=== PATIENT | female | born 1935 | race Caucasian/White ===

== ENCOUNTER 2016-09-20 15:30 | Inpatient (IN) | payer OTHER, MEDICARE ==
[~2016-09-20] VITALS: Ht 160 cm; Wt 69.9 kg
[~2016-09-20 15:30] MED LIST: ACET-1138 PO; ALBU1AER9 INH; AMLO-114 PO; ATEN-175 PO; CHOL100010 PO; CLON1TAB3 PO; CLOTCRE33 TOP; DOCU100T7 PO; DVNC160 PO; FURO-85 PO; GABA-112 PO; LVQ750 PO; PARO1TAB27 PO; PRAV40TA PO; SYMIN160 INH
[2016-09-20] MEDS ORDERED: HYDROmorphone INJ 0.5 MG/0.5 ML SYR IV STA (15:52)
--- NOTE | 2016-09-20 15:55 | EMERGENCY ROOM VISIT NOTE ---
History First contact with patient: 15:36 Chief Complaint: HIP PAIN Stated Complaint: SEVERE LEFT HIP PAIN History of Present Illness The patient is a 81 year old female who presents to the Emergency Room via private vehicle with complaints of "severe left hip pain". The patient presents to us today with hip pain that developed on Saturday. This is exclusively on the left side. There has been no known injury or trauma to the area. Patient states she has a history of fracture in the past of the right hip and this feels identical. She also has a recently diagnosed right tibial fracture. There is concern that the patient is compensating secondary to pain in the right leg by bearing more weight on the left hip region. The patient notes extreme pain with axial load, and rates her pain as a 9/10. Review of Systems A complete 10-point Review of Systems was discussed with the patient, with pertinent positives and negatives listed in the History of Present Illness. All remaining Review of Systems questions can be considered negative unless otherwise specified. Past Medical/Surgical History Medical Problems: (1) Arthritis (2) Compression fracture of vertebra (3) Hip fracture (4) Hypertension (5) Left hip pain (6) UTI (urinary tract infection) (7) Weakness Surgical Problems: (1) Post-operative state Family History Gallbladder disease Hypertension Kidney disease Kidney stones Social History Smoking Status: Current Every Day Smoker Alcohol Use: none Drug Use: none Marital Status: Occupation Status: retired Current/Historical Medications Scheduled Amlodipine (Norvasc), 5 MG PO DAILY Atenolol (Tenormin), 100 MG PO DAILY Budesonide/Formoterol Fumarate (Symbicort 160/4.5 Inhaler ), 2 PUFFS INH BID Cholecalciferol (Vitamin D 1000 Unit), 1,000 INTER.UNIT PO DAILY Clotrimazole W/ Betamethasone (Lotrisone), 1 APPLN TOP BID Fluticasone Propionate (Nasal) (Flonase Allergy Relief), 2 SPRAYS LIO DAILY Furosemide (Lasix), 20 MG PO DAILY Gabapentin (Neurontin), 100 MG PO BID Oxybutynin Chloride (Oxybutynin Chloride Er), 5 MG PO DAILY Paroxetine (Paxil), 20 MG PO HS Pravastatin Sodium (Pravachol), 40 MG PO DAILY Valsartan (Diovan), 160 MG PO DAILY Scheduled PRN Albuterol (Ventolin Hfa), 2 PUFFS INH Q4H PRN for Shortness of Breath Clonazepam (Klonopin), 0.5 MG PO BID PRN for Anxiety Allergies Coded Allergies: Cantaloupe (Verified Allergy, Mild, 09/29/15) [place] (Verified Allergy, Mild, 09/29/15) [place] (Verified Allergy, Mild, 09/29/15) NSAIDs (Verified Allergy, Unknown, unk, 09/29/15) Penicillins (Verified Allergy, Unknown, 09/29/15) Pseudoephedrine (Verified Adverse Reaction, Unknown, epistaxis, 09/29/15) (from nasal spray) Physical Exam Vital Signs Date Time Temp Pulse Resp B/P (MAP) Pulse Ox O2 Delivery O2 Flow Rate FiO2 09/20/16 20:10 59 18 160/79 90 Room Air 09/20/16 17:48 61 18 192/71 91 Room Air 09/20/16 15:34 36.5 59 18 184/76 95 Room Air Physical Exam VITAL SIGNS - Vital signs and nursing notes were reviewed. Patient is afebrile , hypertensive 184/76, non-tachycardic and saturating well on room air 95%. GENERAL -81-year-old female appearing her stated age who is in no acute distress. Communicates well with provider and answers questions appropriately. SKIN - Without rashes. No breaks in the integument. HEAD - NC/AT. LUNGS - Chest wall symmetric without accessory muscle use, intercostals retractions, or central cyanosis. Normal vesicular breath sounds CTA B/L. No wheezes, rales, or rhonchi appreciated. CARDIAC - RRR with S1/S2. No murmur, rubs, or gallops appreciated. EXTREMITIES - No clubbing or peripheral cyanosis. No pretibial edema present. There is tenderness to palpation overlying the left lateral hip. Exquisite tenderness referred to the left hip with axial load. She is neurovascularly intact in this region. No lumbar spinous processes tenderness. +5/5 strength noted in UE/LE bilaterally. Medical Decision & Procedures ER Provider Diagnostic Interpretation: RIGHT TIBIA/FIBULA 2 VIEWS ROUTINE CLINICAL HISTORY: Lower leg pain COMPARISON: MRI study dated 09/20/2016 DISCUSSION: There is subtle sclerosis involving the medial tibial plateau. This likely indicates an age-indeterminate impaction fracture. There is no dislocation. There are vascular calcifications present. IMPRESSION: Subtle area of linear sclerosis involving the medial tibial plateau. This likely indicates an age-indeterminate impaction fracture Electronically signed by: Tyrone Alonzo M.D. 09/20/2016 9:11 PM Dictated Date/Time: 09/20/2016 9:09 PM CHEST ONE VIEW PORTABLE CLINICAL HISTORY: Hip fracture COMPARISON STUDY: 09/29/2015 FINDINGS: The heart is the upper limits of normal in size. There is mild central vascular prominence without evidence of overt failure. There is no lobar consolidation. No pleural effusions are visualized. There is evidence for prior vertebroplasties.[ There is an area of scarring within the left mid to lower lung zone. IMPRESSION: Portable supine study. No acute findings. Electronically signed by: Tyrone Alonzo M.D. 09/20/2016 9:09 PM Dictated Date/Time: 09/20/2016 9:08 PM MRI THE LEFT HIP NO CONTRAST CLINICAL HISTORY: Severe left hip pain. No fracture visualized on CT scanning or conventional radiographic imaging COMPARISON STUDY: CT scan dated 09/20/2016, conventional x-ray dated 09/20/2016 FINDINGS: Imaging was performed in the axial, sagittal, and coronal planes. There is artifact secondary to a total right hip arthroplasty. There is a focal area of edema involving the medial aspect of the left femoral head neck junction. This demonstrates a linear focus of decreased T1 signal. The findings are consistent with a stress fracture. No corresponding fracture was visualized on the recent imaging of the left hip. There is a small left hip joint effusion. There is heterogeneous marrow signal within the left proximal femur. There is a 35 mm circumscribed lesion within the subtrochanteric left femur. There is no associated soft tissue mass. There is no cortical disruption. The lesion appears to contain fatty elements. While nonspecific this may represent an intraosseous lipoma. IMPRESSION: 1. Focal edema involving the medial femoral head neck junction, likely representing a stress fracture. 2. Small joint effusion 3. 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 Electronically signed by: Tyrone Alonzo M.D. 09/20/2016 8:05 PM Dictated Date/Time: 09/20/2016 7:[address] LEFT HIP-LOWER EXTREMITY WITHOUT CT DOSE: 475.93 mGy.cm CLINICAL HISTORY: Left hip pain negative conventional radiographic study TECHNIQUE: Helical images were acquired in the transverse plane. Coronal and sagittal reformatted images were reviewed COMPARISON STUDY: Conventional radiographic study dated 09/20/2016 FINDINGS: The bones are osteopenic. No fractures are visualized. No destructive lesions are visualized. There is a very small joint effusion. There are minimal degenerative changes. There is colonic diverticulosis. IMPRESSION: 1. No acute fractures 2. No destructive lesions identified 3. Minimal degenerative changes 4. Very small joint effusion Electronically signed by: Tyrone Alonzo M.D. 09/20/2016 5:31 PM Dictated Date/Time: 09/20/2016 5:28 PM AP PELVIS AND LEFT HIP 3 VIEWS CLINICAL HISTORY: Left hip pain. COMPARISON STUDY: August 2015 FINDINGS: There are postsurgical changes of a total right hip arthroplasty. There are postsurgical changes of a lower lumbar vertebral plasty. There are vascular calcifications present. No fractures of the left hip are visualized. There are no subluxations. There are no destructive lesions. The joint space of the left hip appears well-preserved for age. IMPRESSION: No acute fractures identified. No evidence of significant left hip joint space narrowing. Electronically signed by: Tyrone Alonzo M.D. 09/20/2016 4:35 PM Dictated Date/Time: 09/20/2016 4:33 PM Laboratory Results 09/20/16 16:00 Red Blood Count 4.53, Mean Corpuscular Volume 78.8, Mean Corpuscular Hemoglobin 24.3, Mean Corpuscular Hemoglobin Concent 30.8, Mean Platelet Volume 8.6, Neutrophils (%) (Auto) 73.0, Lymphocytes (%) (Auto) 15.7, Monocytes (%) (Auto) 9.2, Eosinophils (%) (Auto) 1.0, Basophils (%) (Auto) 0.3, Neutrophils # (Auto) 4.42, Lymphocytes # (Auto) 0.95, Monocytes # (Auto) 0.56, Eosinophils # (Auto) 0.06, Basophils # (Auto) 0.02 09/20/16 21:19 Test 09/20/16 16:00 09/20/16 21:19 09/20/16 22:07 White Blood Count 6.06 K/uL (4.8-10.8) Red Blood Count 4.53 M/uL (4.2-5.4) Hemoglobin 11.0 g/dL (12.0-16.0) Hematocrit 35.7 % (37-47) Mean Corpuscular Volume 78.8 fL (80-100) Mean Corpuscular Hemoglobin 24.3 pg (25-34) Mean Corpuscular Hemoglobin Concent 30.8 g/dl (32-36) Platelet Count 237 K/uL (130-400) Mean Platelet Volume 8.6 fL (7.4-10.4) Neutrophils (%) (Auto) 73.0 % Lymphocytes (%) (Auto) 15.7 % Monocytes (%) (Auto) 9.2 % Eosinophils (%) (Auto) 1.0 % Basophils (%) (Auto) 0.3 % Neutrophils # (Auto) 4.42 K/uL (1.4-6.5) Lymphocytes # (Auto) 0.95 K/uL (1.2-3.4) Monocytes # (Auto) 0.56 K/uL (0.11-0.59) Eosinophils # (Auto) 0.06 K/uL (0-0.5) Basophils # (Auto) 0.02 K/uL (0-0.2) RDW Standard Deviation 53.2 fL (36.4-46.3) RDW Coefficient of Variation 18.6 % (11.5-14.5) Immature Granulocyte % (Auto) 0.8 % Immature Granulocyte # (Auto) 0.05 K/uL (0.00-0.02) Total Bilirubin 0.4 mg/dl (0.2-1) Aspartate Amino Transf (AST/SGOT) 25 U/L (15-37) Alanine Aminotransferase (ALT/SGPT) 25 U/L (12-78) Alkaline Phosphatase 74 U/L (45-117) Total Protein 7.1 gm/dl (6.4-8.2) Albumin 3.7 gm/dl (3.4-5.0) Globulin 3.4 gm/dl (2.5-4.0) Albumin/Globulin Ratio 1.1 (0.9-2) Prothrombin Time 10.7 SECONDS (9.0-12.0) Prothromb Time International Ratio 1.0 (0.9-1.1) Activated Partial Thromboplast Time 25.6 SECONDS (21.0-31.0) Partial Thromboplastin Ratio 1.0 Anion Gap 4.0 mmol/L (3-11) Est Creatinine Clear Calc Drug Dose 27.7 ml/min Estimated GFR () 37.7 Estimated GFR (Non- 32.6 BUN/Creatinine Ratio 14.1 (10-20) Calcium Level 9.3 mg/dl (8.5-10.1) Urine Color YELLOW Urine Appearance CLEAR (CLEAR) Urine pH 8.0 (4.5-7.5) Urine Specific [place] 1.013 (1.000-1.030) Urine Protein NEG (NEG) Urine Glucose (UA) NEG (NEG) Urine Ketones NEG (NEG) Urine Occult Blood NEG (NEG) Urine Nitrite NEG (NEG) Urine Bilirubin NEG (NEG) Urine Urobilinogen NEG (NEG) Urine Leukocyte Esterase NEG (NEG) Medications Administered Medications (Trade) Dose Ordered Sig/Rashi Route Start Time Stop Time Status Last Admin Dose Admin Hydromorphone HCl (Dilaudid Inj) 0.5 mg NOW STAT IV 09/20/16 15:52 09/20/16 15:53 DC 09/20/16 16:14 0.5 MG Medical Decision Patient was seen and evaluated as above. After obtaining a thorough history and physical examination IV access was initiated, and the above workup was performed. Patient presents to us today with severe left hip pain, no trauma. She states the pain feels identical to pain she has experienced in the past when she had fractured the right hip. Radiographs did not reveal any fracture, and CBC reveals anemia, but no leukocytosis. She was given Dilaudid for pain. She is reevaluated and was feeling much better. Coag studies unremarkable. CMP reveals carbon dioxide high at 33, BUN high 24, creatinine high at 1.6. Urine reveals high pH. CT scan was obtained of the hip and negative for acute process. I did discuss the case with Dr. Fierro, of [facility], who recommended pursuing an MRI of the hip. Results as above. Stress fracture is noted. I did call him back regarding the findings, and the decision was made to have the patient admitted, and then orthopedics consult tomorrow to decide if the patient would require surgery or conservative management. I do believe this is reasonable, and the patient will be admitted for further evaluation and management. A diet was ordered for the patient, as it was requested that she become nothing by mouth after midnight and there are still some time for her to eat food. The patient seems comfortable. Please refer to further documentation regarding her stay, as the patient's case was discussed with the hospitalist. In the evaluation and treatment of this patient, the following differential diagnoses were considered: Hip Fracture, Hip Dislocation, Greater Trochanteric Bursitis, Musculoskeletal Pain, Lumbar Radiculopathy. Patient's blood pressure was found to be elevated which I believe is secondary to pain. I personally reviewed the patient's medication list. Impression Primary Impression: Hip fracture Additional Impression: Anemia Departure Information Referrals Mani Jimenez D.O. (PCP) Patient Instructions [facility] Problem Qualifiers
[2016-09-20 16:16] LABS: BASO % 0.3 %; BASO ABS # 0.02 K/uL (0-0.2); COMPLETE YES; HEMATOCRIT 35.7 % (37-47); IG% 0.8 %; LYMPH % 15.7 %; LYMPH ABS # 0.95 K/uL (1.2-3.4); MEAN CELL VOLUME 78.8 fL (80-100); MEAN CORPUSCULAR HEMOGLOBIN 24.3 pg (25-34); MEAN CORPUSCULAR HGB CONC 30.8 g/dl (32-36); MEAN PLATELET VOLUME 8.6 fL (7.4-10.4); MONO % 9.2 %; PLATELET COUNT 237 K/uL (130-400); RED BLOOD COUNT 4.53 M/uL (4.2-5.4); WHITE BLOOD COUNT 6.06 K/uL (4.8-10.8)
[2016-09-20] MEDS ORDERED: FLUT0.15 NAE (16:25)
[2016-09-20] MEDS ORDERED: PRVHFAIN INH (16:25)
[2016-09-20] MEDS ORDERED: CHOL100027 PO (16:25)
[2016-09-20] MEDS ORDERED: DVN/160 PO (16:25)
[2016-09-20] MEDS ORDERED: CLON0.5T3 PO (16:25)
[2016-09-20] MEDS ORDERED: OXYB5TAB PO (16:25)
[2016-09-20] MEDS ORDERED: AMLO-110 PO (16:25)
[2016-09-20 16:34] LABS: BUN/CREATININE RATIO 14.8 (10-20); CALCIUM 9.2 mg/dl (8.5-10.1); CREATININE 1.6 mg/dl (0.60-1.20); POTASSIUM 3.9 mmol/L (3.5-5.1)
[2016-09-20 16:36] LABS: ALB/GLOB RATIO 1.1 (0.9-2)
--- NOTE | 2016-09-20 16:36 | DIAGNOSTIC IMAGING REPORT ---
AP PELVIS AND LEFT HIP 3 VIEWS CLINICAL HISTORY: Left hip pain. COMPARISON STUDY: August 2015 FINDINGS: There are postsurgical changes of a total right hip arthroplasty. There are postsurgical changes of a lower lumbar vertebral plasty. There are vascular calcifications present. No fractures of the left hip are visualized. There are no subluxations. There are no destructive lesions. The joint space of the left hip appears well-preserved for age. IMPRESSION: No acute fractures identified. No evidence of significant left hip joint space narrowing. Electronically signed by: Tyrone Alonzo M.D. 09/20/2016 4:35 PM Dictated Date/Time: 09/20/2016 4:33 PM
--- NOTE | 2016-09-20 17:30 | EMERGENCY ROOM VISIT NOTE ---
ED Visit Note First contact with patient: 15:36 Patient was seen by our PA/DIRECTOR GIFT. I was involved in the patient's care and did evaluate the patient myself. I was involved in the care throughout the ER stay. The patient presents with hip pain. Initial plain films do not show fracture, a CT has been ordered for a better look at the bones for the possibility of a subtle fracture. This result is pending.
--- NOTE | 2016-09-20 17:32 | DIAGNOSTIC IMAGING REPORT ---
CT LEFT HIP-LOWER EXTREMITY WITHOUT CT DOSE: 475.93 mGy.cm CLINICAL HISTORY: Left hip pain negative conventional radiographic study TECHNIQUE: Helical images were acquired in the transverse plane. Coronal and sagittal reformatted images were reviewed COMPARISON STUDY: Conventional radiographic study dated 09/20/2016 FINDINGS: The bones are osteopenic. No fractures are visualized. No destructive lesions are visualized. There is a very small joint effusion. There are minimal degenerative changes. There is colonic diverticulosis. IMPRESSION: 1. No acute fractures 2. No destructive lesions identified 3. Minimal degenerative changes 4. Very small joint effusion Electronically signed by: Tyrone Alonzo M.D. 09/20/2016 5:31 PM Dictated Date/Time: 09/20/2016 5:28 PM
--- NOTE | 2016-09-20 20:07 | DIAGNOSTIC IMAGING REPORT ---
MRI THE LEFT HIP NO CONTRAST CLINICAL HISTORY: Severe left hip pain. No fracture visualized on CT scanning or conventional radiographic imaging COMPARISON STUDY: CT scan dated 09/20/2016, conventional x-ray dated 09/20/2016 FINDINGS: Imaging was performed in the axial, sagittal, and coronal planes. There is artifact secondary to a total right hip arthroplasty. There is a focal area of edema involving the medial aspect of the left femoral head neck junction. This demonstrates a linear focus of decreased T1 signal. The findings are consistent with a stress fracture. No corresponding fracture was visualized on the recent imaging of the left hip. There is a small left hip joint effusion. There is heterogeneous marrow signal within the left proximal femur. There is a 35 mm circumscribed lesion within the subtrochanteric left femur. There is no associated soft tissue mass. There is no cortical disruption. The lesion appears to contain fatty elements. While nonspecific this may represent an intraosseous lipoma. IMPRESSION: 1. Focal edema involving the medial femoral head neck junction, likely representing a stress fracture. 2. Small joint effusion 3. 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 Electronically signed by: Tyrone Alonzo M.D. 09/20/2016 8:05 PM Dictated Date/Time: 09/20/2016 7:56 PM
--- NOTE | 2016-09-20 21:10 | DIAGNOSTIC IMAGING REPORT ---
CHEST ONE VIEW PORTABLE CLINICAL HISTORY: Hip fracture COMPARISON STUDY: 09/29/2015 FINDINGS: The heart is the upper limits of normal in size. There is mild central vascular prominence without evidence of overt failure. There is no lobar consolidation. No pleural effusions are visualized. There is evidence for prior vertebroplasties.[ There is an area of scarring within the left mid to lower lung zone. IMPRESSION: Portable supine study. No acute findings. Electronically signed by: Tyrone Alonzo M.D. 09/20/2016 9:09 PM Dictated Date/Time: 09/20/2016 9:08 PM
--- NOTE | 2016-09-20 21:13 | DIAGNOSTIC IMAGING REPORT ---
RIGHT TIBIA/FIBULA 2 VIEWS ROUTINE CLINICAL HISTORY: Lower leg pain COMPARISON: MRI study dated 09/20/2016 DISCUSSION: There is subtle sclerosis involving the medial tibial plateau. This likely indicates an age-indeterminate impaction fracture. There is no dislocation. There are vascular calcifications present. IMPRESSION: Subtle area of linear sclerosis involving the medial tibial plateau. This likely indicates an age-indeterminate impaction fracture Electronically signed by: Tyrone Alonzo M.D. 09/20/2016 9:11 PM Dictated Date/Time: 09/20/2016 9:09 PM
[2016-09-20 22:08] LABS: PROTHROMBIN TIME (PATIENT) 10.7 SECONDS (9.0-12.0)
[2016-09-20 22:12] LABS: BUN/CREATININE RATIO 14.1 (10-20); CALCIUM 9.3 mg/dl (8.5-10.1); CREATININE 1.5 mg/dl (0.60-1.20); POTASSIUM 3.8 mmol/L (3.5-5.1)
[2016-09-20] MEDS ORDERED: MoRPHine SULFATE 4 MG/ML 1 ML CARP\\VIAL IV PRN (22:15)
[2016-09-20] MEDS ORDERED: MAGNESIUM HYDROXIDE SUSP 30 ML UDC PO PRN (22:15)
[2016-09-20] MEDS ORDERED: ALBUTEROL HFA 8 GM INHALER INH PRN (22:15)
[2016-09-20] MEDS ORDERED: ONDANSETRON INJ 2 MG/ML 2 ML VIAL IV PRN (22:15)
[2016-09-20] MEDS ORDERED: POLYETHYLENE (MIRALAX) 17 GM PACK PO PRN (22:15)
[2016-09-20 22:41] LABS: URINE APPEARANCE CLEAR (CLEAR); URINE BILIRUBIN NEG (NEG); URINE COLOR YELLOW; URINE NITRITE NEG (NEG); URINE SPECIFIC GRAVITY 1.013 (1.000-1.030); UROBILINOGEN NEG (NEG); ZZURINE CULT IF INDIC CATH NO
[2016-09-20 22:43] LABS: MANUAL MICROSCOPIC REQUIRED? NO; REVIEW REQ? NO
--- NOTE | 2016-09-20 23:09 | History and Physical ---
History & Physical Date & Time of Service: Sep 20, 2016 at 23:09 Chief Complaint: Severe Left Hip Pain Primary Care Physician: Mani Jimenez D.O. History of Present Illness Ms. Hughes is a 80 year old woman with an extensive orthopedic history including multiple spine surgeries and more recently a right hip replacement on 09/07/15 for a femur fracture after a fall,COPD, urinary incontinence. She presented to the ER with complaints of severe left hip pain which started a few days ago. She denies any history of trauma and thinks her pain is due to overuse/ by excessive weight bearing on the left side as she was recently diagnosed with a right tibial fracture . She states her pain is 9 on a scale of 10 with radiation to her buttock. Denies any fevers or chills, numbness or tingling, , chest pains, shortness of breathing, palpitations Past Medical/Surgical History Medical Problems: (1) Arthritis Status: Chronic (2) Compression fracture of vertebra Status: Chronic (3) Hypertension Status: Chronic Family History Gallbladder disease Hypertension Kidney disease Kidney stones Social History Smoking Status: Current Every Day Smoker Drug Use: none Marital Status: Occupational Status: retired Immunizations History of Influenza Vaccine: Yes Influenza Vaccine Date: Jan 13, 2007 History of Tetanus Vaccine?: YES- UNCERTAIN OF DATE History of Pneumococcal: No History of Hepatitis B Vaccine: No Multi-Drug Resistant Organisms History of MDRO: No Allergies Coded Allergies: Cantaloupe (Verified Allergy, Mild, 09/29/15) [place] (Verified Allergy, Mild, 09/29/15) [place] (Verified Allergy, Mild, 09/29/15) NSAIDs (Verified Allergy, Unknown, unk, 09/29/15) Penicillins (Verified Allergy, Unknown, 09/29/15) Pseudoephedrine (Verified Adverse Reaction, Unknown, epistaxis, 09/29/15) (from nasal spray) Home Medications Scheduled Amlodipine (Norvasc), 5 MG PO DAILY Atenolol (Tenormin), 100 MG PO DAILY Budesonide/Formoterol Fumarate (Symbicort 160/4.5 Inhaler ), 2 PUFFS INH BID Cholecalciferol (Vitamin D 1000 Unit), 1,000 INTER.UNIT PO DAILY Clotrimazole W/ Betamethasone (Lotrisone), 1 APPLN TOP BID Fluticasone Propionate (Nasal) (Flonase Allergy Relief), 2 SPRAYS LIO DAILY Furosemide (Lasix), 20 MG PO DAILY Gabapentin (Neurontin), 100 MG PO BID Oxybutynin Chloride (Oxybutynin Chloride Er), 5 MG PO DAILY Paroxetine (Paxil), 20 MG PO HS Pravastatin Sodium (Pravachol), 40 MG PO DAILY Valsartan (Diovan), 160 MG PO DAILY Scheduled PRN Albuterol (Ventolin Hfa), 2 PUFFS INH Q4H PRN for Shortness of Breath Clonazepam (Klonopin), 0.5 MG PO BID PRN for Anxiety Review of Systems Constitutional: No fever, No chills Eyes: No worsening of vision ENT: No hearing loss Respiratory: No cough, No sputum Cardiovascular: No chest pain Abdomen: No pain, No nausea, No vomiting Musculoskeletal: + joint pain (left hip pain) Genitourinary - Female: No dysuria, No urinary frequency, No urinary urgency Psychiatric: No depression symptoms Endocrine: No fatigue Hematologic / Lymphatic: No abnormal bleeding/bruising Physical Exam Vital Signs Date Time Temp Pulse Resp B/P (MAP) Pulse Ox O2 Delivery O2 Flow Rate FiO2 09/20/16 22:52 68 09/20/16 22:11 94 Nasal Cannula 2.0 09/20/16 22:10 66 18 175/74 88 Room Air 09/20/16 20:10 59 18 160/79 90 Room Air 09/20/16 17:48 61 18 192/71 91 Room Air 09/20/16 15:34 36.5 59 18 184/76 95 Room Air General Appearance: WD/WN, + mild distress Head: normocephalic, atraumatic Eyes: normal inspection ENT: normal ENT inspection Neck: supple Respiratory/Chest: no respiratory distress, no accessory muscle use, + wheezing (scattered) Cardiovascular: regular rate, rhythm Abdomen/GI: normal bowel sounds, non tender, soft Extremities/Musculoskelatal: + pedal edema (bilateral), + pertinent finding ( tenderness on palpation of left hip. No obvious swelling/bruising) Neurologic/Psych: alert, normal mood/affect, oriented x 3 Skin: normal color Diagnostics Laboratory Results Results Past 24 Hours Test 09/20/16 16:00 09/20/16 21:19 09/20/16 22:07 Range/Units White Blood Count 6.06 4.8-10.8 K/uL Red Blood Count 4.53 4.2-5.4 M/uL Hemoglobin 11.0 12.0-16.0 g/dL Hematocrit 35.7 37-47 % Mean Corpuscular Volume 78.8 80-100 fL Mean Corpuscular Hemoglobin 24.3 25-34 pg Mean Corpuscular Hemoglobin Concent 30.8 32-36 g/dl Platelet Count 237 130-400 K/uL Mean Platelet Volume 8.6 7.4-10.4 fL Neutrophils (%) (Auto) 73.0 % Lymphocytes (%) (Auto) 15.7 % Monocytes (%) (Auto) 9.2 % Eosinophils (%) (Auto) 1.0 % Basophils (%) (Auto) 0.3 % Neutrophils # (Auto) 4.42 1.4-6.5 K/uL Lymphocytes # (Auto) 0.95 1.2-3.4 K/uL Monocytes # (Auto) 0.56 0.11-0.59 K/uL Eosinophils # (Auto) 0.06 0-0.5 K/uL Basophils # (Auto) 0.02 0-0.2 K/uL RDW Standard Deviation 53.2 36.4-46.3 fL RDW Coefficient of Variation 18.6 11.5-14.5 % Immature Granulocyte % (Auto) 0.8 % Immature Granulocyte # (Auto) 0.05 0.00-0.02 K/uL Sodium Level 137 142 136-145 mmol/L Potassium Level 3.9 3.8 3.5-5.1 mmol/L Chloride Level 100 105 98-107 mmol/L Carbon Dioxide Level 33 33 21-32 mmol/L Anion Gap 4.0 4.0 3-11 mmol/L Blood Urea Nitrogen 24 21 7-18 mg/dl Creatinine 1.60 1.50 0.60-1.20 mg/dl Est Creatinine Clear Calc Drug Dose 26.0 27.7 ml/min Estimated GFR () 34.9 37.7 Estimated GFR (Non- 30.1 32.6 BUN/Creatinine Ratio 14.8 14.1 10-20 Random Glucose 88 87 70-99 mg/dl Calcium Level 9.2 9.3 8.5-10.1 mg/dl Total Bilirubin 0.4 0.2-1 mg/dl Aspartate Amino Transf (AST/SGOT) 25 15-37 U/L Alanine Aminotransferase (ALT/SGPT) 25 12-78 U/L Alkaline Phosphatase 74 45-117 U/L Total Protein 7.1 6.4-8.2 gm/dl Albumin 3.7 3.4-5.0 gm/dl Globulin 3.4 2.5-4.0 gm/dl Albumin/Globulin Ratio 1.1 0.9-2 Prothrombin Time 10.7 9.0-12.0 SECONDS Prothromb Time International Ratio 1.0 0.9-1.1 Activated Partial Thromboplast Time 25.6 21.0-31.0 SECONDS Partial Thromboplastin Ratio 1.0 Urine Color YELLOW Urine Appearance CLEAR CLEAR Urine pH 8.0 4.5-7.5 Urine Specific [place] 1.013 1.000-1.030 Urine Protein NEG NEG Urine Glucose (UA) NEG NEG Urine Ketones NEG NEG Urine Occult Blood NEG NEG Urine Nitrite NEG NEG Urine Bilirubin NEG NEG Urine Urobilinogen NEG NEG Urine Leukocyte Esterase NEG NEG Diagnostic Radiology AP PELVIS AND LEFT HIP 3 VIEWS CLINICAL HISTORY: Left hip pain. COMPARISON STUDY: August 2015 FINDINGS: There are postsurgical changes of a total right hip arthroplasty. There are postsurgical changes of a lower lumbar vertebral plasty. There are vascular calcifications present. No fractures of the left hip are visualized. There are no subluxations. There are no destructive lesions. The joint space of the left hip appears well-preserved for age. IMPRESSION: No acute fractures identified. No evidence of significant left hip joint space narrowing. [~ rep ct add3]] CT LEFT HIP-LOWER EXTREMITY WITHOUT CT DOSE: 475.93 mGy.cm CLINICAL HISTORY: Left hip pain negative conventional radiographic study TECHNIQUE: Helical images were acquired in the transverse plane. Coronal and sagittal reformatted images were reviewed COMPARISON STUDY: Conventional radiographic study dated 09/20/2016 FINDINGS: The bones are osteopenic. No fractures are visualized. No destructive lesions are visualized. There is a very small joint effusion. There are minimal degenerative changes. There is colonic diverticulosis. IMPRESSION: 1. No acute fractures 2. No destructive lesions identified 3. Minimal degenerative changes 4. Very small joint effusion Electronically signed by: Tyrone Alonzo M.D. 09/20/2016 5:31 PM Dictated Date/Time: 09/20/2016 5:28 PM MRI THE LEFT HIP NO CONTRAST CLINICAL HISTORY: Severe left hip pain. No fracture visualized on CT scanning or conventional radiographic imaging COMPARISON STUDY: CT scan dated 09/20/2016, conventional x-ray dated 09/20/2016 FINDINGS: Imaging was performed in the axial, sagittal, and coronal planes. There is artifact secondary to a total right hip arthroplasty. There is a focal area of edema involving the medial aspect of the left femoral head neck junction. This demonstrates a linear focus of decreased T1 signal. The findings are consistent with a stress fracture. No corresponding fracture was visualized on the recent imaging of the left hip. There is a small left hip joint effusion. There is heterogeneous marrow signal within the left proximal femur. There is a 35 mm circumscribed lesion within the subtrochanteric left femur. There is no associated soft tissue mass. There is no cortical disruption. The lesion appears to contain fatty elements. While nonspecific this may represent an intraosseous lipoma. IMPRESSION: 1. Focal edema involving the medial femoral head neck junction, likely representing a stress fracture. 2. Small joint effusion 3. 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 [~ rep ct add3]] RIGHT TIBIA/FIBULA 2 VIEWS ROUTINE CLINICAL HISTORY: Lower leg pain COMPARISON: MRI study dated 09/20/2016 DISCUSSION: There is subtle sclerosis involving the medial tibial plateau. This likely indicates an age-indeterminate impaction fracture. There is no dislocation. There are vascular calcifications present. IMPRESSION: Subtle area of linear sclerosis involving the medial tibial plateau. This likely indicates an age-indeterminate impaction fracture Electronically signed by: Tyrone Alonzo M.D. 09/20/2016 9:11 PM Dictated Date/Time: 09/20/2016 9:09 PM CHEST ONE VIEW PORTABLE CLINICAL HISTORY: Hip fracture COMPARISON STUDY: 09/29/2015 FINDINGS: The heart is the upper limits of normal in size. There is mild central vascular prominence without evidence of overt failure. There is no lobar consolidation. No pleural effusions are visualized. There is evidence for prior vertebroplasties.[ There is an area of scarring within the left mid to lower lung zone. IMPRESSION: Portable supine study. No acute findings. Electronically signed by: Tyrone Alonzo M.D. 09/20/2016 9:09 PM Dictated Date/Time: 09/20/2016 9:08 PM CXR normal Impression Assessment and Plan Ms. Hughes is a 80 year old woman with an extensive orthopedic history including multiple spine surgeries and more recently a right hip replacement on 09/07/15 for a femur fracture after a fall,COPD, urinary incontinence presented to the ER with complaints of left-sided hip pain. Chest x-ray unremarkable, EKG ordered. Considered to be average risk for anticipated surgical intervention Femoral neck stress fracture: -Likely secondary to overuse /excessive weightbearing due to recent right tibial fracture -MRI right hip : 1. Focal edema involving the medial femoral head neck junction , likely representing a stress fracture. 2. Small joint effusion 3. 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 -Chest x-ray unremarkable -Pain control with Dilaudid -Orthopedic consult -Nothing by mouth after midnight Acute kidney injury: - Creatinine at 1.6, baseline around 1.4 - Avoid nephrotoxins -Continue IV fluids and monitor BMP Hypertension: -Continue amlodipine, atenolol, valsartan COPD: - Continue Symbicort, Ventolin - Chest x-ray unremarkable Urinary incontinence: - Continue oxybutynin Depression: -Continue Paxil Addendum Pre-op risk: Would advise on correction of renal function prior to surgery as her baseline creat is 1.0 per previous labs RCRI is technically 0.4% as she does not have a significant cardiac history although her EKG is abnormal so that a history of CAD cannot be completely ruled out in terms of a previous silent infarct - would then place her risk at 0.9% which is still acceptable and based on her recent history would recommend proceeding to surgery without further workup although again we would recommend correction of her NOHEMY. DVT prophylaxis: SCDs DO NOT RESUSCITATE - will need reversal of code status if she is to proceed to surgery Disposition: Admitted to [facility] Resident Physician Supervision Note: I was present with Dr. Turcios during the history and exam. I discussed the case with the resident and agree with the findings and plan as documented in the note. Any exceptions or clarifications are listed here: 81 y/o F Hx COPD, CKD - osteoporosis w/multiple fractures. Presents following a fall - sustained a L hip and tibial Fx OE AAO x 3 S1, 2 R CTA - decreased air entry NT ND + B/L edema P: Pt will require surgical intervention We are pending an ortho eval Will be kept NPO and placed on incentive spirometry due to COPD history Would advise on correction of renal function prior to surgery as her baseline creat is 1.0 per previous labs RCRI is technically 0.4% as she does not have a significant cardiac history although her EKG is abnormal so that a history of CAD cannot be completely ruled out in terms of a previous silent infarct - would then place her risk at 0.9% which is still acceptable and based on her recent history would recommend proceeding to surgery without further workup although again we would recommend correction of her NOHEMY. Documented By: Ryan Larios Level of Care Med/Surg Resuscitation Status DO NOT RESUSCITATE VTE Prophylaxis VTE Risk Assessment Done? Y/N: Yes Risk Level: Moderate Given or contraindicated: SCD's Resident Tracking Resident Involvement: Resident Care Provided Care Provided: Adult Hospital Medicine
[2016-09-20 23:40] VITALS: BP 165/67; PULSE 70; TEMP 36.7; O2SAT 87; Ht 160 cm; Wt 69.9 kg
[2016-09-21] VITALS (9 sets, daily range): BP systolic 154–202; BP diastolic 62–79; PULSE 67–74; TEMP 36.4–36.7; O2SAT 92–97
[2016-09-21] MEDS: HYDROmorphone INJ 0.5 MG/0.5 ML SYR IV PRN ×3 (00:56→19:29)
[2016-09-21] MEDS: SODIUM CHLORIDE 0.9% 1000ML 1,000 ML IV SCH ×3 (03:06→22:46)
[2016-09-21] MEDS: AMLODIPINE BESYLATE 5 MG TAB PO SCH (08:40)
[2016-09-21] MEDS: BUDESONIDE/FORMOTEROL FUMARATE 160/4.5 60 PUFFS/INHALER INH SCH ×2 (08:41→20:49)
[2016-09-21] MEDS: VALSARTAN 80 MG TAB PO SCH (08:41)
[2016-09-21] MEDS: FLUTICASONE PROPIONATE NA SPR 16 GM BTL NAE SCH (08:41)
[2016-09-21] MEDS: CLOTRIMAZOLE/BETAMETHASONE CR 15 GM TUBE EXT SCH ×2 (08:41→20:49)
[2016-09-21] MEDS ORDERED: BUPIVACAINE 0.5 % 5 MG/1 ML PF 10ML VIAL ONE (11:29)
--- NOTE | 2016-09-21 11:49 | Orthopedic Consultation ---
Orthopedic Consultation Date of Consultation: Sep 21, 2016. Attending Physician: Ryan Larios M.D. Reason for Consultation: Left Hip Fracture History of Present Illness Patient is an 81-year-old white female known to our practice, who was admitted last night by medicine service for a left femoral neck fracture identified through MRI. Patient is accompanied by her daughter and state that the patient did not have any kind of mechanical fall. The patient states that her left hip began hurting her last Saturday. She has been limited weightbearing on her right knee due to having a small compression-type fracture of her right tibial plateau. She was seen in [place] by Dr. Ramirez who put her in a brace for her right knee and told her to "take it easy" on the knee. Prior to this, the patient states that she wasn't having much in the way of left hip pain. The daughter does state however that comparing it to her right hip which she had a total hip replacement, the left hip was bothering her somewhat but not to the point that she was complaining about it all the time. The pain in the left hip continued to worsen and the daughter brought her in to be seen in the emergency room. [facility]. In the emergency room, plain films were taken and showed no overt fracture. A CT scan was also performed and found no cortical lucencies or fractures. An MRI was then performed of the left hip and found focal edema involving the medial femoral head neck junction, likely being a stress type fracture. There was also noted a well-circumscribed 35mm cyst in the subtrochanteric region that could likely be lipomatous. We have been asked to see her for her current hip pain and likely fracture. Past Medical/Surgical History PMH - Arthritis, HTN, hx of Vertebral Compression Fractures PSH - R ANCELMO , Hysterectomy, Tonsilectomy, Multiple Lumbar Spine surgeries. Medical Problems: (1) Anemia Status: Acute (2) COPD exacerbation Status: Acute (3) Dehydration Status: Acute (4) Hip fracture, right Status: Acute (5) Pyelonephritis Status: Acute Family History Gallbladder disease Hypertension Kidney disease Kidney stones Social History Smoking Status: Current Every Day Smoker Drug Use: none Marital Status: Occupation Status: retired Allergies Coded Allergies: Cantaloupe (Verified Allergy, Mild, 09/29/15) [place] (Verified Allergy, Mild, 09/29/15) [place] (Verified Allergy, Mild, 09/29/15) NSAIDs (Verified Allergy, Unknown, unk, 09/29/15) Penicillins (Verified Allergy, Unknown, 09/29/15) Pseudoephedrine (Verified Adverse Reaction, Unknown, epistaxis, 09/29/15) (from nasal spray) Home Medications Scheduled Amlodipine (Norvasc), 5 MG PO DAILY Atenolol (Tenormin), 100 MG PO DAILY Budesonide/Formoterol Fumarate (Symbicort 160/4.5 Inhaler ), 2 PUFFS INH BID Cholecalciferol (Vitamin D 1000 Unit), 1,000 INTER.UNIT PO DAILY Clotrimazole W/ Betamethasone (Lotrisone), 1 APPLN TOP BID Fluticasone Propionate (Nasal) (Flonase Allergy Relief), 2 SPRAYS LIO DAILY Furosemide (Lasix), 20 MG PO DAILY Gabapentin (Neurontin), 100 MG PO BID Oxybutynin Chloride (Oxybutynin Chloride Er), 5 MG PO DAILY Paroxetine (Paxil), 20 MG PO HS Pravastatin Sodium (Pravachol), 40 MG PO DAILY Valsartan (Diovan), 160 MG PO DAILY Scheduled PRN Albuterol (Ventolin Hfa), 2 PUFFS INH Q4H PRN for Shortness of Breath Clonazepam (Klonopin), 0.5 MG PO BID PRN for Anxiety Current Inpatient Medications Current Inpatient Medications Medications (Trade) Dose Ordered Sig/Rashi Route Start Time Stop Time Status Last Admin Dose Admin Magnesium Hydroxide (Milk Of Magnesia Susp) 30 ml Q6H PRN PO 09/20/16 22:15 10/20/16 22:14 Polyethylene (Miralax Powder Packet) 17 gm DAILY PRN PO 09/20/16 22:15 10/20/16 22:14 Ondansetron HCl (Zofran Inj) 4 mg Q6H PRN IV 09/20/16 22:15 10/20/16 22:14 Albuterol (Ventolin Hfa Inhaler) 2 puffs Q4H PRN INH 09/20/16 22:15 10/20/16 22:14 Amlodipine Besylate (Norvasc Tab) 5 mg DAILY PO 09/21/16 09:00 10/21/16 08:59 09/21/16 08:40 5 MG Atenolol (Tenormin Tab) 100 mg DAILY PO 09/21/16 09:00 10/21/16 08:59 09/21/16 08:40 100 MG Budesonide/ Formoterol Fumarate (Symbicort 160/ 4.5 Inh) 2 puffs BID INH 09/21/16 09:00 10/21/16 08:59 09/21/16 08:41 2 PUFFS Cholecalciferol (Vitamin D Tab) 1,000 inter.unit DAILY PO 09/21/16 09:00 10/21/16 08:59 Clonazepam (Klonopin Tab) 0.5 mg BID PRN PO 09/20/16 22:15 10/20/16 22:14 Betamethasone/ Clotrimazole (Lotrisone Crm) 1 appln BID EXT 09/21/16 09:00 10/21/16 08:59 09/21/16 08:41 1 APPLN Fluticasone Propionate (Flonase Nasal [place]) 2 sprays DAILY LIO 09/21/16 09:00 10/21/16 08:59 09/21/16 08:41 2 SPRAYS Gabapentin (Neurontin Cap) 100 mg BID PO 09/21/16 09:00 10/21/16 08:59 Oxybutynin Chloride (Ditropan-Xl Tab) 5 mg DAILY PO 09/21/16 09:00 10/21/16 08:59 Paroxetine HCl (pAXil TAB) 20 mg HS PO 09/21/16 21:00 10/21/16 20:59 Pravastatin Sodium (Pravachol Tab) 40 mg DAILY PO 09/21/16 09:00 10/21/16 08:59 Valsartan (Diovan Tab) 160 mg DAILY PO 09/21/16 09:00 10/21/16 08:59 09/21/16 08:41 160 MG Hydromorphone HCl (Dilaudid Inj) 0.5 mg Q4H PRN IV 09/21/16 00:45 10/05/16 00:44 09/21/16 00:56 0.5 MG Sodium Chloride 1,000 ml @ 100 mls/hr Q10H IV 09/21/16 02:45 10/21/16 02:44 09/21/16 03:06 100 MLS/HR Physical Exam Date Time Temp Pulse Resp B/P (MAP) Pulse Ox O2 Delivery O2 Flow Rate FiO2 09/21/16 08:29 93 Nasal Cannula 2.0 09/21/16 08:12 Room Air 09/21/16 07:50 36.4 67 16 184/66 (105) 93 Nasal Cannula 2.0 09/21/16 01:25 Nasal Cannula 2.0 09/20/16 23:40 36.7 70 20 165/67 87 Room Air 09/20/16 23:14 67 18 161/72 96 09/20/16 22:52 68 09/20/16 22:11 94 Nasal Cannula 2.0 09/20/16 22:10 66 18 175/74 88 Room Air 09/20/16 20:10 59 18 160/79 90 Room Air 09/20/16 17:48 61 18 192/71 91 Room Air 09/20/16 15:34 36.5 59 18 184/76 95 Room Air Upon entering the patient's room, she is lying on her left side with her left hip flexed to approximately 90. She appears comfortable. She appears to be sleeping but is easily awoken and is capable of turning onto her back under her own power. Focusing the exam on her left lower extremity, there is no overt bruising or swelling noted of the left thigh or hip she has no overt tenderness on palpation of the left hip or thigh. With passive range of motion, the patient does have mild pain with internal and external rotation. I am able to flex the hip to approximately 90 with only mild discomfort at best. She does not have any pain with adduction or abduction. Extending the hip does not elicit much in the way of pain. The left knee is nontender on palpation and has good range of motion. Left ankle also is within normal limits. On examining her right knee she is tender on palpation over the anterior portion of her tibial plateau and has some decreased range of motion due to pain from a small compression fracture in the tibial plateau. No other complaints of pain in the right lower extremity for extremities have some limited decrease in range of motion of her shoulders due to arthritis however are otherwise within normal limits. There is no gross sensory deficits this time or motor deficits even with her noted hip pain. Pulses feel equal. Laboratory Results Last 24 Hours Test 09/20/16 16:00 09/20/16 21:19 09/20/16 22:07 White Blood Count 6.06 K/uL Red Blood Count 4.53 M/uL Hemoglobin 11.0 g/dL Hematocrit 35.7 % Mean Corpuscular Volume 78.8 fL Mean Corpuscular Hemoglobin 24.3 pg Mean Corpuscular Hemoglobin Concent 30.8 g/dl Platelet Count 237 K/uL Mean Platelet Volume 8.6 fL Neutrophils (%) (Auto) 73.0 % Lymphocytes (%) (Auto) 15.7 % Monocytes (%) (Auto) 9.2 % Eosinophils (%) (Auto) 1.0 % Basophils (%) (Auto) 0.3 % Neutrophils # (Auto) 4.42 K/uL Lymphocytes # (Auto) 0.95 K/uL Monocytes # (Auto) 0.56 K/uL Eosinophils # (Auto) 0.06 K/uL Basophils # (Auto) 0.02 K/uL RDW Standard Deviation 53.2 fL RDW Coefficient of Variation 18.6 % Immature Granulocyte % (Auto) 0.8 % Immature Granulocyte # (Auto) 0.05 K/uL Sodium Level 137 mmol/L 142 mmol/L Potassium Level 3.9 mmol/L 3.8 mmol/L Chloride Level 100 mmol/L 105 mmol/L Carbon Dioxide Level 33 mmol/L 33 mmol/L Anion Gap 4.0 mmol/L 4.0 mmol/L Blood Urea Nitrogen 24 mg/dl 21 mg/dl Creatinine 1.60 mg/dl 1.50 mg/dl Est Creatinine Clear Calc Drug Dose 26.0 ml/min 27.7 ml/min Estimated GFR () 34.9 37.7 Estimated GFR (Non- 30.1 32.6 BUN/Creatinine Ratio 14.8 14.1 Random Glucose 88 mg/dl 87 mg/dl Calcium Level 9.2 mg/dl 9.3 mg/dl Total Bilirubin 0.4 mg/dl Aspartate Amino Transf (AST/SGOT) 25 U/L Alanine Aminotransferase (ALT/SGPT) 25 U/L Alkaline Phosphatase 74 U/L Total Protein 7.1 gm/dl Albumin 3.7 gm/dl Globulin 3.4 gm/dl Albumin/Globulin Ratio 1.1 Prothrombin Time 10.7 SECONDS Prothromb Time International Ratio 1.0 Activated Partial Thromboplast Time 25.6 SECONDS Partial Thromboplastin Ratio 1.0 Urine Color YELLOW Urine Appearance CLEAR Urine pH 8.0 Urine Specific [place] 1.013 Urine Protein NEG Urine Glucose (UA) NEG Urine Ketones NEG Urine Occult Blood NEG Urine Nitrite NEG Urine Bilirubin NEG Urine Urobilinogen NEG Urine Leukocyte Esterase NEG Assessment & Plan Assessment: Likely cortical stress fracture at the medial femoral neck per MRI. Likely lipomatous cyst at the subtrochanteric region. Older tibial plateau compression fracture. Plan: I have discussed the case with Dr. Shah and he has reviewed her x- rays. Currently the family is asking for total hip replacement. I believe the concern is that with her tibial plateau fracture limiting weightbearing on her right side, and then fixing the fracture with either cannulated screws or trochanteric nail, would render her immobile for some time. Dr. Shah will speak to the family and make a decision on total hip arthroplasty versus ORIF. Thank you for this consult.
[2016-09-21] MEDS: PRAVASTATIN SOD 40 MG TAB PO SCH (12:50)
[2016-09-21] MEDS: OXYBUTYNIN CHLORIDE 5 MG TABCR PO SCH (12:50)
[2016-09-21] MEDS: GABAPENTIN 100 MG CAP PO SCH ×2 (12:50→20:48)
[2016-09-21] MEDS: CHOLECALCIFEROL 1000 INTER.UNIT TAB PO SCH (12:51)
--- NOTE | 2016-09-21 13:37 | Hospitalist Progress Note ---
Hospitalist Progress Note Date of Service Sep 21, 2016. Subjective Pt evaluation today including: conversation w/ patient, chart review, lab review Pain: hip and knee pain Patient denies any chest pain or shortness of breath. All Other Systems: Reviewed and Negative Medications Medications (Trade) Dose Ordered Sig/Rashi Route Start Time Stop Time Status Last Admin Dose Admin Hydromorphone HCl (Dilaudid Inj) 0.5 mg NOW STAT IV 09/20/16 15:52 09/20/16 15:53 DC 09/20/16 16:14 0.5 MG Amlodipine Besylate (Norvasc Tab) 5 mg DAILY PO 09/21/16 09:00 10/21/16 08:59 09/21/16 08:40 5 MG Atenolol (Tenormin Tab) 100 mg DAILY PO 09/21/16 09:00 10/21/16 08:59 09/21/16 08:40 100 MG Budesonide/ Formoterol Fumarate (Symbicort 160/ 4.5 Inh) 2 puffs BID INH 09/21/16 09:00 10/21/16 08:59 09/21/16 08:41 2 PUFFS Betamethasone/ Clotrimazole (Lotrisone Crm) 1 appln BID EXT 09/21/16 09:00 10/21/16 08:59 09/21/16 08:41 1 APPLN Fluticasone Propionate (Flonase Nasal [place]) 2 sprays DAILY LIO 09/21/16 09:00 10/21/16 08:59 09/21/16 08:41 2 SPRAYS Valsartan (Diovan Tab) 160 mg DAILY PO 09/21/16 09:00 10/21/16 08:59 09/21/16 08:41 160 MG Hydromorphone HCl (Dilaudid Inj) 0.5 mg Q4H PRN IV 09/21/16 00:45 10/05/16 00:44 09/21/16 11:21 0.5 MG Sodium Chloride 1,000 ml @ 100 mls/hr Q10H IV 09/21/16 02:45 10/21/16 02:44 09/21/16 12:51 100 MLS/HR Objective Vital Signs Date Time Temp Pulse Resp B/P (MAP) Pulse Ox O2 Delivery O2 Flow Rate FiO2 09/21/16 08:29 93 Nasal Cannula 2.0 09/21/16 08:12 Room Air 09/21/16 07:50 36.4 67 16 184/66 (105) 93 Nasal Cannula 2.0 09/21/16 01:25 Nasal Cannula 2.0 09/20/16 23:40 36.7 70 20 165/67 87 Room Air 09/20/16 23:14 67 18 161/72 96 09/20/16 22:52 68 09/20/16 22:11 94 Nasal Cannula 2.0 09/20/16 22:10 66 18 175/74 88 Room Air 09/20/16 20:10 59 18 160/79 90 Room Air 09/20/16 17:48 61 18 192/71 91 Room Air 09/20/16 15:34 36.5 59 18 184/76 95 Room Air Physical Exam General Appearance: WD/WN, no apparent distress Eyes: normal inspection ENT: hearing grossly normal Neck: supple, trachea midline Respiratory/Chest: lungs clear Cardiovascular: regular rate, rhythm Abdomen: normal bowel sounds, non tender, soft Extremities: no pedal edema Laboratory Results Last 24 Hours Test 09/20/16 16:00 09/20/16 21:19 09/20/16 22:07 White Blood Count 6.06 K/uL Red Blood Count 4.53 M/uL Hemoglobin 11.0 g/dL Hematocrit 35.7 % Mean Corpuscular Volume 78.8 fL Mean Corpuscular Hemoglobin 24.3 pg Mean Corpuscular Hemoglobin Concent 30.8 g/dl Platelet Count 237 K/uL Mean Platelet Volume 8.6 fL Neutrophils (%) (Auto) 73.0 % Lymphocytes (%) (Auto) 15.7 % Monocytes (%) (Auto) 9.2 % Eosinophils (%) (Auto) 1.0 % Basophils (%) (Auto) 0.3 % Neutrophils # (Auto) 4.42 K/uL Lymphocytes # (Auto) 0.95 K/uL Monocytes # (Auto) 0.56 K/uL Eosinophils # (Auto) 0.06 K/uL Basophils # (Auto) 0.02 K/uL RDW Standard Deviation 53.2 fL RDW Coefficient of Variation 18.6 % Immature Granulocyte % (Auto) 0.8 % Immature Granulocyte # (Auto) 0.05 K/uL Sodium Level 137 mmol/L 142 mmol/L Potassium Level 3.9 mmol/L 3.8 mmol/L Chloride Level 100 mmol/L 105 mmol/L Carbon Dioxide Level 33 mmol/L 33 mmol/L Anion Gap 4.0 mmol/L 4.0 mmol/L Blood Urea Nitrogen 24 mg/dl 21 mg/dl Creatinine 1.60 mg/dl 1.50 mg/dl Est Creatinine Clear Calc Drug Dose 26.0 ml/min 27.7 ml/min Estimated GFR () 34.9 37.7 Estimated GFR (Non- 30.1 32.6 BUN/Creatinine Ratio 14.8 14.1 Random Glucose 88 mg/dl 87 mg/dl Calcium Level 9.2 mg/dl 9.3 mg/dl Total Bilirubin 0.4 mg/dl Aspartate Amino Transf (AST/SGOT) 25 U/L Alanine Aminotransferase (ALT/SGPT) 25 U/L Alkaline Phosphatase 74 U/L Total Protein 7.1 gm/dl Albumin 3.7 gm/dl Globulin 3.4 gm/dl Albumin/Globulin Ratio 1.1 Prothrombin Time 10.7 SECONDS Prothromb Time International Ratio 1.0 Activated Partial Thromboplast Time 25.6 SECONDS Partial Thromboplastin Ratio 1.0 Urine Color YELLOW Urine Appearance CLEAR Urine pH 8.0 Urine Specific [place] 1.013 Urine Protein NEG Urine Glucose (UA) NEG Urine Ketones NEG Urine Occult Blood NEG Urine Nitrite NEG Urine Bilirubin NEG Urine Urobilinogen NEG Urine Leukocyte Esterase NEG Diagnostic Results MRI THE LEFT HIP NO CONTRAST CLINICAL HISTORY: Severe left hip pain. No fracture visualized on CT scanning or conventional radiographic imaging COMPARISON STUDY: CT scan dated 09/20/2016, conventional x-ray dated 09/20/2016 FINDINGS: Imaging was performed in the axial, sagittal, and coronal planes. There is artifact secondary to a total right hip arthroplasty. There is a focal area of edema involving the medial aspect of the left femoral head neck junction. This demonstrates a linear focus of decreased T1 signal. The findings are consistent with a stress fracture. No corresponding fracture was visualized on the recent imaging of the left hip. There is a small left hip joint effusion. There is heterogeneous marrow signal within the left proximal femur. There is a 35 mm circumscribed lesion within the subtrochanteric left femur. There is no associated soft tissue mass. There is no cortical disruption. The lesion appears to contain fatty elements. While nonspecific this may represent an intraosseous lipoma. IMPRESSION: 1. Focal edema involving the medial femoral head neck junction, likely representing a stress fracture. 2. Small joint effusion 3. 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 Electronically signed by: Tyrone Alonzo M.D. 09/20/2016 8:05 PM Dictated Date/Time: 09/20/2016 7:56 PM The status of this report is Signed. Draft = Not yet reviewed or approved by Radiologist. Signed = Reviewed and approved by Radiologist. <AttendingPhy></AttendingPhy> <FamilyPhy>Mani Jimenez D.O.</FamilyPhy> <PrimaryPhy>Mani Jimenez D.O.</PrimaryPhy> <UnitNumber>[id number]</ UnitNumber> <VisitNumber>[id number]</VisitNumber> <PatientName>DARYNPRISCA JOVEL</ PatientName> <DateOfBirth>1935</DateOfBirth> <Location>[facility]</Location> < ServiceDate>09/20/16</ServiceDate> <MNE>ESINDI</MNE> <OrderingPhy>Tony Gunderson PA-C</OrderingPhy> <OrderingPhyMNE>f rep ord dr sanchez</OrderingPhyMNE> < DictatingPhyMNE>f rep dict dr sanchez</DictatingPhyMNE> <CCListMNE>f rep ct mne</ CCListMNE> <AdmittingPhyMNE>f pt admit dr sanchez</ [~ rep ct add3]] CHEST ONE VIEW PORTABLE CLINICAL HISTORY: Hip fracture COMPARISON STUDY: 09/29/2015 FINDINGS: The heart is the upper limits of normal in size. There is mild central vascular prominence without evidence of overt failure. There is no lobar consolidation. No pleural effusions are visualized. There is evidence for prior vertebroplasties.[ There is an area of scarring within the left mid to lower lung zone. IMPRESSION: Portable supine study. No acute findings. Electronically signed by: Tyrone Alonzo M.D. 09/20/2016 9:09 PM Dictated Date/Time: 09/20/2016 9:08 PM Assessment and Plan (1) Hip fracture Assessment & Plan: Patient may proceed to surgery. Bblocker will used. She has an abnormal EKG with no cardiac symptoms. Cxray reviewed. Will follow postoperatively. (2) Hypertension Assessment & Plan: Atenolol may need to be reduced postoperatively. Problem Qualifiers (1) Hypertension: Hypertension type: essential hypertension Qualified Codes: I10 - Essential ( primary) hypertension
--- NOTE | 2016-09-21 15:50 | History & Physical Bridge Note ---
H&P Re-Evaluation Bridge Note: I have examined the patient, reviewed the History & Physical and in the interval since the performance of the History & Physical and the Orthopedic Consultation by my service, I have noted the following changes of clinical significance: Continued Left hip pain with ambulation and standing. 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
[2016-09-21] MEDS ORDERED: MIDAZOLAM HCL 1 MG/ML 2ML VIAL ONE (16:01)
[2016-09-21] MEDS ORDERED: BACITRACIN 50000 UNIT VIAL ONE (16:17)
[2016-09-21] MEDS ORDERED: ATROPINE SULFATE 0.1 MG/ML 5ML SYR IV PRN (17:00)
[2016-09-21] MEDS ORDERED: FENTANYL CITRATE INJ 50 MCG/1 ML 2 ML VIAL IV PRN (17:00)
[2016-09-21] MEDS ORDERED: PROMETHAZINE HCL INJ 6.25 MG in SODIUM CHLORIDE 0.9% 50ML 50 ML IV PRN (17:00)
[2016-09-21] MEDS ORDERED: EpHEDrine SULFATE INJ 50 MG/ML AMP IV PRN (17:00)
[2016-09-21] MEDS ORDERED: ONDANSETRON INJ 2 MG/ML 2 ML VIAL IV PRN (17:00)
[2016-09-21] MEDS ORDERED: CEFAZOLIN SOD 1 GM VIAL ONE (17:10)
[2016-09-21] MEDS ORDERED: EpHEDrine SULFATE 50MG/5ML SYR ONE (17:10)
--- NOTE | 2016-09-21 18:03 | [facility] Operative Report ---
Operative Report Operative Date Sep 21, 2016. Pre-Operative Diagnosis 1. Left Femoral Neck Fracture 2. Left Proximal Femoral Intramedullary Bone Lesion Post-Operative Diagnosis 1. Left Femoral Neck Fracture 2. Left Proximal Femoral Intramedullary Bone Lesion Procedure(s) Performed 1. ORIF Left Femoral Neck Fracture with Trochanteric Nail Insertion 2. Bone Biopsy Proximal Femur Surgeon Dr Shah Plumber Helper Surgeon(s) Levi Ervin PA-C Estimated Blood Loss 30 ML Findings See Dict Specimens a. bone biopsy left femur Drains none Anesthesia spinal with sedation Complication(s) None Disposition Recovery Room / PACU Indications This is a 81-year-old female who is being treated previously for a proximal right tibial plateau fracture. She is being treated nonoperatively for the proximal tibia fracture. Over the last 2 weeks patient had increasing pain and difficulty with ambulation due to left hip pain. Patient had been weightbearing solely on her left lower extremity had noted diminished function and increased pain. 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 There is concern that fixation alone with cannulated screws to be inadequate when considering the femoral neck fracture as well as the bone lesion in the proximal femur. Decision was made for trochanteric nailing of the left femur as indicated. Description of Procedure Procedure: The patient was taken to the operative suite and placed supine on the operating table. After review of the consent and identification of the proper operative site the patient was sedated and a spinal anesthetic was administered. Patient was then placed in the fracture table and the left lower extremity was then placed into traction while the right lower extremity was placed in the well leg jerez. Care was taken to examine pad and protect soft tissues bilateral lower extremities. Of note the protective padding in the plantar aspect of her left heel was removed and the skin was observed. Skin is noted be pink and warm without any evidence of skin breakdown. After the patient was appropriately positioned and the bony prominences were properly padded and protected, the C-arm fluoroscope was used to confirm position and alignment of the left femur. The left hip was then sterilely prepped and draped in usual fashion. A 10 blade scalpel was then used to make an incision just proximal to the tip of the trochanter extending proximally in line with the lateral aspect of the femur. The incision was carefully deepened to the subcutaneous tissue. Meticulous hemostasis was achieved with cautery. The fascia was then incised with electric cautery. The gluteus medius was then incised in line with skin incision. The threaded guide tim was then drilled into the proximal aspect of the greater trochanter under live fluoroscopic assistance and then used to open the proximal femur to a diameter of 17 mm. Next a small curette was then used to remove bone under live fluoroscopic assistance at the level of the bone lesion and this was placed on Telfa and then sent to pathology for analysis. Next the 12 mm reamer was then passed over the large ball tip guide tim intramedullary aspect of the left femur. This was performed to assure that the 11 mm medium length trochanteric nail which is planned for the surgical procedure would passed through the proximal femur. Reaming was performed without difficulty. Reamings from the 12 mm reamer also placed on a Telfa for analysis and pathology lab. Next the wound was scoped C irrigated with sterile normal saline. This was followed by implantation of a Synthes 11 mm trochanteric fixation nail. This formed a live fluoroscopic assistance. The central placed to the appropriate depth within the proximal femur and then the lateral alignment guide was then used to position the trochanteric insertion arm. Next a 10 blade scalpel used to make an incision lateral aspect of the proximal thigh centered over the femur. The incision was carefully deepened to the subcutaneous tissue. As then followed by placement of the alignment sleeve percutaneously to the lateral aspect of the proximal femur drilled into the femur into the femoral neck and head underlie fluoroscopic assistance. Guidepin is placed just inferior to the center center position in the proximal femur and positioned proximal a 5 mm from the subchondral bone of the femoral head. This confirmed on AP and lateral C-arm projections. Next measurement was made for the spiral blade and a 95 mm blade length was selected. The lateral femur was then drilled with the cortical drill followed by drilling to a depth of 90 mm for the triple drill. Next a 95 mm spiral blade was then impacted under live fluoroscopic assistance. The fixation nail was then locked proximally with the flexible screwdriver followed by loading of the nail by compression through the fixation nail. Next the alignment guide was then removed from the spiral blade. Next the distal locking alignment sleeve was then passed through small percutaneous incision with 10 blade scalpel lateral aspect of the femur. This is then drilled and measured to be a 38 mm locking screw. A 38 mm locking screw was then used to lock the fixation nail distally. This was performed with live fluoroscopic assistance. The proximal insertion guide was then removed. All incisions then copious irrigated with sternal saline. Final radiographs were obtained in AP and lateral projections of the fixation nail within the intramedullary aspect of the proximal femur. The gluteus fascia was then closed using interrupted #1 Vicryl. The dermis was closed using buried interrupted 2-0 Vicryl through all incisions followed by closure of the skin incisions with skin migdalia. A sterile lightly compressive dressing was applied to the skin incisions and lateral aspect of the hip. Patient was awakened the patient was then removed from the fracture table and then transported to the recovery area in stable condition. I attest to the content of the Intraoperative Record and any orders documented therein. Any exceptions are noted below.
--- NOTE | 2016-09-21 18:36 | Anesthesiology Progress Note ---
Anesthesia Post Op Note Date & Time Sep 21, 2016 at 18:36 Vital Signs Pain Intensity: 0 Vital Signs Past 12 Hours Date Time Temp Pulse Resp B/P (MAP) Pulse Ox O2 Delivery O2 Flow Rate FiO2 09/21/16 18:30 63 17 187/76 93 Nasal Cannula 4 09/21/16 18:20 69 22 162/105 89 Nasal Cannula 2 09/21/16 18:10 62 14 177/75 97 Nasal Cannula 2 09/21/16 18:00 68 17 181/64 96 Nasal Cannula 2 09/21/16 17:50 36.2 72 18 140/76 97 Nasal Cannula 2 09/21/16 14:15 186/62 (103) 09/21/16 08:29 93 Nasal Cannula 2.0 09/21/16 08:12 Room Air 09/21/16 07:50 36.4 67 16 184/66 (105) 93 Nasal Cannula 2.0 Notes Mental Status: alert / awake / arousable, participated in evaluation Pt Amnestic to Procedure: Yes Nausea / Vomiting: adequately controlled Pain: adequately controlled Airway Patency, RR, SpO2: stable & adequate BP & HR: stable & adequate Hydration State: stable & adequate Neuraxial Anesthesia: was administered, sensory block is resolving Anesthetic Complications: no major complications apparent
--- NOTE | 2016-09-21 19:05 | DIAGNOSTIC IMAGING REPORT ---
LEFT HIP UNILATERAL 2 VIEWS CLINICAL HISTORY: Left femoral neck stress fracture. Postoperative study COMPARISON: 09/20/2016 DISCUSSION: There are postsurgical changes of a total right hip arthroplasty. There is a femoral neck nail and interlocking intramedullary tim on the left. There is air within the soft tissues of the left consistent with recent surgery. There are overlying skin migdalia.. There is no dislocation. IMPRESSION: Postoperative changes as described above. Electronically signed by: Tyrone Alonzo M.D. 09/21/2016 7:04 PM Dictated Date/Time: 09/21/2016 7:02 PM
--- NOTE | 2016-09-21 20:04 | DIAGNOSTIC IMAGING REPORT ---
INTRAOPERATIVE RADIOGRAPHS CLINICAL HISTORY: Open reduction and internal fixation of the left hip. Stress fracture. Fluoroscopy time: 37 seconds. FINDINGS: 4 spot fluoroscopic views of the left femur are obtained. Correlation is made with radiographs of the left hip dated 09/20/2016 an MRI of the left hip dated 09/20/2016. Intertrochanteric and intramedullary nails have been placed in the left femur. The orthopedic hardware appears intact. A single cortical lag screw transfixes the distal end of the intramedullary nail. IMPRESSION: Intraoperative images from open reduction and internal fixation of the left femur. Electronically signed by: Kulwinder Chamberlain M.D. 09/21/2016 8:02 PM Dictated Date/Time: 09/21/2016 7:59 PM
[2016-09-21] MEDS ORDERED: ACETAMINOPHEN 325 MG TAB PO STA (20:34)
[2016-09-21] MEDS ORDERED: ACETAMINOPHEN 325 MG TAB PO PRN (20:45)
[2016-09-21] MEDS: CLONAZEPAM 0.5 MG TAB PO PRN (20:47)
[2016-09-21] MEDS: PAROXETINE 20 MG TAB PO SCH (20:48)
[2016-09-21] MEDS ORDERED: OXYCODONE HCL IR 5 MG TAB (IMMEDIATE RELEASE) PO STA (22:25)
[2016-09-21] MEDS ORDERED: HYDROmorphone INJ 0.5 MG/0.5 ML SYR IV PRN (22:30)
[2016-09-21] MEDS ORDERED: HYDROmorphone INJ 1 MG/ML SYR IV PRN (22:45)
[2016-09-22 03:30] VITALS: BP 174/64; PULSE 72; TEMP 36.9; O2SAT 88
[2016-09-22 03:35] VITALS: O2SAT 98
[2016-09-22] MEDS: SODIUM CHLORIDE 0.9% 1000ML 1,000 ML IV SCH ×2 (05:42→15:52)
[2016-09-22 06:53] LABS: HEMATOCRIT 34.6 % (37-47); MEAN CELL VOLUME 79.4 fL (80-100); MEAN CORPUSCULAR HEMOGLOBIN 24.5 pg (25-34); MEAN CORPUSCULAR HGB CONC 30.9 g/dl (32-36); MEAN PLATELET VOLUME 8.4 fL (7.4-10.4); PLATELET COUNT 211 K/uL (130-400); RED BLOOD COUNT 4.36 M/uL (4.2-5.4)
[2016-09-22] MEDS: OXYCODONE HCL IR 5 MG TAB (IMMEDIATE RELEASE) PO PRN ×3 (07:01→18:03)
[2016-09-22 07:03] VITALS: BP 185/70; PULSE 77; TEMP 36.9; O2SAT 94
[2016-09-22 08:04] LABS: BUN/CREATININE RATIO 14.5 (10-20); CALCIUM 8.8 mg/dl (8.5-10.1); CREATININE 0.91 mg/dl (0.60-1.20); POTASSIUM 3.5 mmol/L (3.5-5.1)
--- NOTE | 2016-09-22 08:24 | Orthopedic Progress Note ---
Orthopedic Progress Note Date of Service Sep 22, 2016. Subjective Post OP Day: 1 Reports: feeling well (Moderate pain left hip) Objective N/V intact, dressing C/D/I, toes mobile Date Time Temp Pulse Resp B/P (MAP) Pulse Ox O2 Delivery O2 Flow Rate FiO2 09/22/16 07:03 36.9 77 16 185/70 (108) 94 Room Air 4.0 09/22/16 03:35 98 Nasal Cannula 4.0 09/22/16 03:30 36.9 72 18 174/64 (100) 88 Nasal Cannula 4.0 09/21/16 23:40 36.7 67 16 163/71 (101) 97 Nasal Cannula 4.0 09/21/16 23:38 Nasal Cannula 4.0 09/21/16 21:50 36.6 73 18 154/69 (97) 95 Nasal Cannula 4.0 09/21/16 20:50 36.5 74 20 164/69 (100) 95 Nasal Cannula 4.0 09/21/16 19:50 36.5 72 18 201/79 (119) 94 Nasal Cannula 4.0 09/21/16 19:20 36.4 72 20 202/74 (116) 92 Nasal Cannula 4.0 09/21/16 18:50 Nasal Cannula 4.0 09/21/16 18:50 36.4 67 16 182/71 (108) 94 Nasal Cannula 4.0 09/21/16 18:50 94 Nasal Cannula 4.0 09/21/16 18:40 36.6 63 18 189/72 97 Nasal Cannula 4 09/21/16 18:30 63 17 187/76 93 Nasal Cannula 4 09/21/16 18:20 69 22 162/105 89 Nasal Cannula 2 09/21/16 18:10 62 14 177/75 97 Nasal Cannula 2 09/21/16 18:00 68 17 181/64 96 Nasal Cannula 2 09/21/16 17:50 36.2 72 18 140/76 97 Nasal Cannula 2 09/21/16 14:15 186/62 (103) 09/21/16 08:29 93 Nasal Cannula 2.0 Laboratory Results 24 Hours: Test 09/22/16 05:53 Hematocrit 34.6 % Hemoglobin 10.7 g/dL Assessment & Plan Assessment: 81 yo female stable POD #1 s/p left hip troch nail with associated nonoperative right tibial plateau fracture Plan: 1. Med management 2. DVT prophylaxis- Lovenox to start today, SCDs 3. PT/OT- WBAT on left, NWB on right 4. D/C planning
[2016-09-22] MEDS: CLOTRIMAZOLE/BETAMETHASONE CR 15 GM TUBE EXT SCH ×4 (09:00→21:00)
[2016-09-22] MEDS: FLUTICASONE PROPIONATE NA SPR 16 GM BTL NAE SCH (09:04)
[2016-09-22] MEDS: BUDESONIDE/FORMOTEROL FUMARATE 160/4.5 60 PUFFS/INHALER INH SCH ×2 (09:04→20:53)
[2016-09-22] MEDS: OXYBUTYNIN CHLORIDE 5 MG TABCR PO SCH (09:04)
[2016-09-22] MEDS: VALSARTAN 80 MG TAB PO SCH (09:05)
[2016-09-22] MEDS: GABAPENTIN 100 MG CAP PO SCH ×2 (09:05→20:56)
[2016-09-22] MEDS: PRAVASTATIN SOD 40 MG TAB PO SCH (09:05)
[2016-09-22] MEDS: AMLODIPINE BESYLATE 5 MG TAB PO SCH (09:05)
[2016-09-22] MEDS: CHOLECALCIFEROL 1000 INTER.UNIT TAB PO SCH (09:05)
[2016-09-22 12:42] VITALS: BP 173/76; PULSE 78; O2SAT 95
[2016-09-22 15:18] VITALS: BP 150/68; PULSE 68; TEMP 36.8; O2SAT 95
[2016-09-22] MEDS: ENOXAPARIN 30 MG/0.3 ML SYR SQ SCH (17:09)
--- NOTE | 2016-09-22 19:05 | Hospitalist Progress Note ---
Hospitalist Progress Note Date of Service Sep 22, 2016. Subjective Patient is sleepy but otherwise no complaints Objective Vital Signs Date Time Temp Pulse Resp B/P (MAP) Pulse Ox O2 Delivery O2 Flow Rate FiO2 09/22/16 16:21 Mask 4.0 09/22/16 15:18 36.8 68 18 150/68 (95) 95 Mask 4.0 09/22/16 12:42 78 95 09/22/16 08:00 Nasal Cannula 4.0 09/22/16 07:03 36.9 77 16 185/70 (108) 94 Room Air 4.0 09/22/16 03:35 98 Nasal Cannula 4.0 09/22/16 03:30 36.9 72 18 174/64 (100) 88 Nasal Cannula 4.0 09/21/16 23:40 36.7 67 16 163/71 (101) 97 Nasal Cannula 4.0 09/21/16 23:38 Nasal Cannula 4.0 09/21/16 21:50 36.6 73 18 154/69 (97) 95 Nasal Cannula 4.0 09/21/16 20:50 36.5 74 20 164/69 (100) 95 Nasal Cannula 4.0 09/21/16 19:50 36.5 72 18 201/79 (119) 94 Nasal Cannula 4.0 09/21/16 19:20 36.4 72 20 202/74 (116) 92 Nasal Cannula 4.0 Physical Exam Eyes: normal inspection Neck: trachea midline Respiratory/Chest: lungs clear Cardiovascular: regular rate, rhythm Abdomen: normal bowel sounds, non tender Laboratory Results Last 24 Hours Test 09/22/16 05:53 White Blood Count 9.80 K/uL Red Blood Count 4.36 M/uL Hemoglobin 10.7 g/dL Hematocrit 34.6 % Mean Corpuscular Volume 79.4 fL Mean Corpuscular Hemoglobin 24.5 pg Mean Corpuscular Hemoglobin Concent 30.9 g/dl RDW Standard Deviation 54.2 fL RDW Coefficient of Variation 18.8 % Platelet Count 211 K/uL Mean Platelet Volume 8.4 fL Sodium Level 143 mmol/L Potassium Level 3.5 mmol/L Chloride Level 108 mmol/L Carbon Dioxide Level 28 mmol/L Anion Gap 7.0 mmol/L Blood Urea Nitrogen 13 mg/dl Creatinine 0.91 mg/dl Est Creatinine Clear Calc Drug Dose 46.2 ml/min Estimated GFR () 69.1 Estimated GFR (Non- 59.6 BUN/Creatinine Ratio 14.5 Random Glucose 114 mg/dl Calcium Level 8.8 mg/dl Assessment and Plan (1) Hip fracture Assessment & Plan: Postoperative day #1 status post ORIF doing well (2) Hypertension Assessment & Plan: Monitor her blood pressure and we will adjust medication as needed Problem Qualifiers (1) Hypertension: Hypertension type: essential hypertension Qualified Codes: I10 - Essential ( primary) hypertension
[2016-09-22] MEDS: PAROXETINE 20 MG TAB PO SCH (20:56)
[2016-09-22 22:50] VITALS: BP 166/71; PULSE 73; TEMP 36.9; O2SAT 97
[2016-09-23] MEDS: SODIUM CHLORIDE 0.9% 1000ML 1,000 ML IV SCH ×3 (04:37→23:04)
[2016-09-23 06:57] VITALS: BP 189/72; PULSE 79; TEMP 36.9; O2SAT 95
[2016-09-23] MEDS: OXYCODONE HCL IR 5 MG TAB (IMMEDIATE RELEASE) PO PRN ×2 (08:01→21:28)
[2016-09-23] MEDS: CLONAZEPAM 0.5 MG TAB PO PRN (08:01)
[2016-09-23] MEDS: CLOTRIMAZOLE/BETAMETHASONE CR 15 GM TUBE EXT SCH ×2 (08:22→21:00)
[2016-09-23] MEDS: FLUTICASONE PROPIONATE NA SPR 16 GM BTL NAE SCH (08:23)
[2016-09-23] MEDS: BUDESONIDE/FORMOTEROL FUMARATE 160/4.5 60 PUFFS/INHALER INH SCH ×2 (08:23→21:28)
[2016-09-23] MEDS: PRAVASTATIN SOD 40 MG TAB PO SCH (08:24)
[2016-09-23] MEDS: GABAPENTIN 100 MG CAP PO SCH ×2 (08:24→21:28)
[2016-09-23] MEDS: OXYBUTYNIN CHLORIDE 5 MG TABCR PO SCH (08:24)
[2016-09-23] MEDS: AMLODIPINE BESYLATE 5 MG TAB PO SCH (08:24)
[2016-09-23] MEDS: VALSARTAN 80 MG TAB PO SCH (08:25)
[2016-09-23] MEDS: CHOLECALCIFEROL 1000 INTER.UNIT TAB PO SCH (08:25)
--- NOTE | 2016-09-23 08:37 | Orthopedic Progress Note ---
Orthopedic Progress Note Date of Service Sep 23, 2016. Subjective Post OP Day: 2 Reports: feeling well Objective calves soft nontender, N/V intact, incision C/D/I, toes mobile Date Time Temp Pulse Resp B/P (MAP) Pulse Ox O2 Delivery O2 Flow Rate FiO2 09/23/16 06:57 36.9 79 16 189/72 (111) 95 4.0 09/22/16 23:30 Oxymask 4.0 09/22/16 22:50 36.9 73 18 166/71 (102) 97 Nasal Cannula 4.0 09/22/16 16:21 Mask 4.0 09/22/16 15:18 36.8 68 18 150/68 (95) 95 Mask 4.0 09/22/16 12:42 78 95 Assessment & Plan Assessment: 81 yo female stable POD #2 s/p left hip troch nail with associated nonoperative right tibial plateau fracture Plan: 1. Med management 2. DVT prophylaxis- Lovenox to start today, SCDs 3. PT/OT- WBAT on left, NWB on right 4. D/C planning
[2016-09-23 15:08] VITALS: BP 145/67; PULSE 76; TEMP 36.7; O2SAT 96
[2016-09-23] MEDS: ENOXAPARIN 30 MG/0.3 ML SYR SQ SCH (17:24)
--- NOTE | 2016-09-23 19:27 | Hospitalist Progress Note ---
Hospitalist Progress Note Date of Service Sep 23, 2016. Subjective Pt evaluation today including: conversation w/ patient Patient with no complaints Objective Vital Signs Date Time Temp Pulse Resp B/P (MAP) Pulse Ox O2 Delivery O2 Flow Rate FiO2 09/23/16 15:08 36.7 76 18 145/67 (93) 96 Nasal Cannula 1.5 09/23/16 07:30 Nasal Cannula 4.0 09/23/16 06:57 36.9 79 16 189/72 (111) 95 4.0 09/22/16 23:30 Oxymask 4.0 09/22/16 22:50 36.9 73 18 166/71 (102) 97 Nasal Cannula 4.0 Physical Exam ENT: hearing grossly normal Neck: supple, trachea midline Respiratory/Chest: lungs clear Cardiovascular: regular rate, rhythm Abdomen: non tender Extremities: normal range of motion Neurologic/Psychiatric: alert Assessment and Plan (1) Hip fracture Assessment & Plan: Postoperative day #2 status post left hip trochanteric nail. Patient will need rehabilitation plans are being made presently (2) Hypertension Assessment & Plan: Adjust medications as needed Problem Qualifiers (1) Hypertension: Hypertension type: essential hypertension Qualified Codes: I10 - Essential ( primary) hypertension
[2016-09-23] MEDS: PAROXETINE 20 MG TAB PO SCH (21:27)
[2016-09-23 23:01] VITALS: BP 180/64; PULSE 79; TEMP 36.8; O2SAT 91
[2016-09-24] VITALS (7 sets, daily range): BP systolic 136–190; BP diastolic 62–74; PULSE 63–77; TEMP 36.7–36.9; O2SAT 84–95
[2016-09-24] MEDS: OXYCODONE HCL IR 5 MG TAB (IMMEDIATE RELEASE) PO PRN ×2 (06:04→11:15)
[2016-09-24 06:57] LABS: HEMATOCRIT 31.4 % (37-47); MEAN CELL VOLUME 79.5 fL (80-100); MEAN CORPUSCULAR HEMOGLOBIN 24.6 pg (25-34); MEAN CORPUSCULAR HGB CONC 30.9 g/dl (32-36); PLATELET COUNT 172 K/uL (130-400); RED BLOOD COUNT 3.95 M/uL (4.2-5.4); WHITE BLOOD COUNT 7.08 K/uL (4.8-10.8)
[2016-09-24 07:32] LABS: CREATININE 0.83 mg/dl (0.60-1.20)
--- NOTE | 2016-09-24 08:17 | Anesthesiology Progress Note ---
Anesthesia Post Op Note Date & Time Sep 24, 2016 at 08:14 Vital Signs Vital Signs Past 12 Hours Date Time Temp Pulse Resp B/P (MAP) Pulse Ox O2 Delivery O2 Flow Rate FiO2 09/24/16 06:53 36.7 71 16 190/70 (110) 95 2.0 09/23/16 23:27 Oxymask 1.5 09/23/16 23:01 36.8 79 16 180/64 (102) 91 Nasal Cannula 2.0 Notes Mental Status: alert / awake / arousable, participated in evaluation Pt Amnestic to Procedure: Yes Nausea / Vomiting: adequately controlled Pain: adequately controlled Airway Patency, RR, SpO2: stable & adequate BP & HR: stable & adequate Hydration State: stable & adequate Anesthetic Complications: no major complications apparent Pt answers questions appropriately, seems a little confused at times however the patient was able to participate in all questions and answer them appropriately. Bedside RN states this has been the patient's baseline. Pt. resting comfortably in bed, no notable s/s of distress or pain.
[2016-09-24] MEDS: CLOTRIMAZOLE/BETAMETHASONE CR 15 GM TUBE EXT SCH ×2 (08:22→20:26)
[2016-09-24] MEDS: FLUTICASONE PROPIONATE NA SPR 16 GM BTL NAE SCH (08:25)
[2016-09-24] MEDS: BUDESONIDE/FORMOTEROL FUMARATE 160/4.5 60 PUFFS/INHALER INH SCH ×2 (08:25→20:27)
[2016-09-24] MEDS: CHOLECALCIFEROL 1000 INTER.UNIT TAB PO SCH (08:26)
[2016-09-24] MEDS: AMLODIPINE BESYLATE 5 MG TAB PO SCH (08:26)
[2016-09-24] MEDS: GABAPENTIN 100 MG CAP PO SCH ×2 (08:26→20:36)
[2016-09-24] MEDS: OXYBUTYNIN CHLORIDE 5 MG TABCR PO SCH (08:26)
[2016-09-24] MEDS: VALSARTAN 80 MG TAB PO SCH (08:27)
[2016-09-24] MEDS: PRAVASTATIN SOD 40 MG TAB PO SCH (08:27)
[2016-09-24] MEDS: SODIUM CHLORIDE 0.9% 1000ML 1,000 ML IV SCH (08:29)
[2016-09-24] MEDS: CLONAZEPAM 0.5 MG TAB PO PRN (11:14)
--- NOTE | 2016-09-24 13:01 | Orthopedic Progress Note ---
Orthopedic Progress Note Date of Service Sep 24, 2016. Subjective Post OP Day: 3 Reports: feeling well, Denies: complaints, chest pain, SOB, nausea / vomiting, light headedness, calf pain Objective calves soft nontender, N/V intact, hip located, incision C/D/I, A&O x3, toes mobile Date Time Temp Pulse Resp B/P (MAP) Pulse Ox O2 Delivery O2 Flow Rate FiO2 09/24/16 07:45 Nasal Cannula 2.0 09/24/16 06:53 36.7 71 16 190/70 (110) 95 2.0 09/23/16 23:27 Oxymask 1.5 09/23/16 23:01 36.8 79 16 180/64 (102) 91 Nasal Cannula 2.0 09/23/16 16:15 Nasal Cannula 1.5 09/23/16 15:08 36.7 76 18 145/67 (93) 96 Nasal Cannula 1.5 Laboratory Results 24 Hours: Test 09/24/16 06:39 Hematocrit 31.4 % Hemoglobin 9.7 g/dL Assessment & Plan Assessment: 81 yo female stable POD #3 s/p left hip troch nail with associated nonoperative right tibial plateau fracture Plan: 1. Med management 2. DVT prophylaxis- Lovenox to start today, SCDs 3. PT/OT- WBAT on left, NWB on right 4. [place] planning[place] [facility] [place] Inhouse Planning Pain Management: PO Tylenol, Oxy IR DVT Prophylaxis: TEDs, SCDs, Lovenox Discharge Planning Discharge Planning: rehab hospital
--- NOTE | 2016-09-24 13:03 | Consultant Recommendations ---
Senior Game Advisor Recommendations Date of Service Sep 24, 2016. Senior Game Advisor Recommendations ACTIVITY RECOMMENDATIONS: SELF CARE INSTRUCTIONS AFTER TOTAL HIP REPLACEMENT Until the incision and soft tissues around your hip have healed, there is a possibility that the hip prosthesis could dislocate. B. Your balance may be shaky for a while. Use crutches or a walker until directed by your doctor. -NON WEIGHT BEARING STATUS ON THE RIGHT - WEIGHT BEARING TOLERATED ON THE LEFT C. Use hand rails when walking on stairs. D. Wear low heeled shoes with non-slip soles. E. Be sure that your floors are free of things that could trip you - throw rugs , electrical cords, small objects. Avoid wet and waxed floors, especially with crutches and canes. F. Try to walk several times a day with rest periods between. G. Continue with all the exercises taught to you in the hospital. Again, make walking a part of your daily routine. SPECIAL CARE INSTRUCTIONS: VERY IMPORTANT TO READ AND REVIEW A. You may still be at risk for phlebitis and blood clots. 1. Wear surgical stockings (KAREN hose) for 2 weeks after surgery to improve circulation and reduce swelling. 2. Take Aspirin 81mg twice daily for 4 weeks or as directed by your doctor. This is your blood thinner. 3. High risk patients may be prescribed a stronger blood thinner if necessary. 4. If you are on Coumadin normally, your family doctor/sample finisher should monitor your blood work. Expect a phone call the day of or the day after bloodwork is drawn to adjust your dosage. C. Call [facility] if you have a fever, redness or swelling around the incision, cloudy drainage from incision, or sudden increase in pain in your hip, not relieved by your regular pain medication. D. Please call the office at if you have any concerns or questions about your operation or recovery. * YOU MAY SHOWER, NO TUB BATHS UNTIL CLEARED BY YOUR DOCTOR. * WEAR KAREN HOSE 20 HOURS PER DAY FOR 2 WEEKS. * YOU SHOULD USE A WALKER OR WHEELCHAIR FOR 4-6 WEEKS Standard migdalia/no adhesive- Please keep incision clean and dry. You may shower. [place] should be removed in 10-14 days at the office. This appointment is likely already scheduled for you. Please call if any increased redness, drainage, or swelling. FOLLOW UP VISIT: If appointment is not already scheduled: Please call [facility] to make a follow-up appointment for 2 weeks after your surgery at .
[2016-09-24] MEDS ORDERED: RXC5 PO (14:03)
[2016-09-24] MEDS ORDERED: LVNIS30 SQ (14:03)
[2016-09-24] MEDS ORDERED: LVNIS30 SC (14:10)
--- NOTE | 2016-09-24 14:14 | Discharge Instructions ---
Discharge Instructions Date of Service Sep 24, 2016. Admission Reason for Admission: Left Hip Pain Discharge Discharge Diagnosis / Problem: left femoral neck fracture, ORIF Discharge Goals Goal(s): Decrease discomfort, Improve function, Increase independence, Improve disease control, Learn about illness, Diagnostic testing, Therapeutic intervention, Screening Activity Recommendations Activity Limitations: per Instructions/Follow-up section . Instructions / Follow-Up Instructions / Follow-Up Patient to be discharged to [facility] [place] Please continue lovenox 30 mg SC q daily for 10 more days for thromoboembolism ( clot) prevention Also provided oxycodone 5 mg every 4 hrs as needed for pain control Until the incision and soft tissues around your hip have healed, there is a possibility that the hip prosthesis could dislocate. Please note increase in blood pressure medication of amlodipine to 10 mg tablet once daily Also will be discharged on antibiotic levaquin 750mg tablet to take 1 tablet every other day for 5 more days Finally diet is now nectar thick liquids, NO THINS OR STRAWS Activity recommendations: Weight bearing as tolerating on left and non weight bearing on right Use hand rails when walking on stairs. Wear low heeled shoes with non-slip soles. Be sure that your floors are free of things that could trip you - throw rugs, electrical cords, small objects. Avoid wet and waxed floors, especially with crutches and canes. Try to walk several times a day with rest periods between. Continue with all the exercises taught to you in the hospital. Again, make walking a part of your daily routine. SPECIAL CARE INSTRUCTIONS: You may still be at risk for phlebitis and blood clots. Wear surgical stockings (KAREN hose) for 2 weeks after surgery to improve circulation and reduce swelling. Call [facility] if you have a fever, redness or swelling around the incision, cloudy drainage from incision, or sudden increase in pain in your hip, not relieved by your regular pain medication. Please call the office at if you have any concerns or questions about your operation or recovery. * YOU MAY SHOWER, NO TUB BATHS UNTIL CLEARED BY YOUR DOCTOR. * WEAR KAREN HOSE 20 HOURS PER DAY FOR 2 WEEKS. * YOU SHOULD USE A WALKER OR WHEELCHAIR FOR 4-6 WEEKS Standard migdalia/no adhesive- Please keep incision clean and dry. You may shower. [place] should be removed in 10-14 days at the office. This appointment is likely already scheduled for you. Please call if any increased redness, drainage, or swelling. FOLLOW UP VISIT: If appointment is not already scheduled: Please call [facility] to make a follow-up appointment for 2 weeks after your surgery at . Current Hospital Diet Patient's current hospital diet: Regular Diet Discharge Diet Recommended Diet: Regular Diet Procedures Procedures Performed: 1. ORIF Left Femoral Neck Fracture with Trochanteric Nail Insertion 2. Bone Biopsy Proximal Femur Pending Studies Studies pending at discharge: no Medical Emergencies . Who to Call and When: Medical Emergencies: If at any time you feel your situation is an emergency, please call 911 immediately. . Non-Emergent Contact Non-Emergency issues call your: Primary Care Provider Call Non-Emergent contact if: you have a fever, your pain is worsening . . "Provider Documentation" section prepared by Ramin Perry. . Type Photography Supervisor Recommendations Type Photography Supervisor Recommendations: ACTIVITY RECOMMENDATIONS: SELF CARE INSTRUCTIONS AFTER TOTAL HIP REPLACEMENT Until the incision and soft tissues around your hip have healed, there is a possibility that the hip prosthesis could dislocate. B. Your balance may be shaky for a while. Use crutches or a walker until directed by your doctor. -NON WEIGHT BEARING STATUS ON THE RIGHT - WEIGHT BEARING TOLERATED ON THE LEFT C. Use hand rails when walking on stairs. D. Wear low heeled shoes with non-slip soles. E. Be sure that your floors are free of things that could trip you - throw rugs , electrical cords, small objects. Avoid wet and waxed floors, especially with crutches and canes. F. Try to walk several times a day with rest periods between. G. Continue with all the exercises taught to you in the hospital. Again, make walking a part of your daily routine. SPECIAL CARE INSTRUCTIONS: VERY IMPORTANT TO READ AND REVIEW A. You may still be at risk for phlebitis and blood clots. 1. Wear surgical stockings (KAREN hose) for 2 weeks after surgery to improve circulation and reduce swelling. 2. Take Aspirin 81mg twice daily for 4 weeks or as directed by your doctor. This is your blood thinner. 3. High risk patients may be prescribed a stronger blood thinner if necessary. 4. If you are on Coumadin normally, your family doctor/medicare insurance specialist should monitor your blood work. Expect a phone call the day of or the day after bloodwork is drawn to adjust your dosage. C. Call [facility] if you have a fever, redness or swelling around the incision, cloudy drainage from incision, or sudden increase in pain in your hip, not relieved by your regular pain medication. D. Please call the office at if you have any concerns or questions about your operation or recovery. * YOU MAY SHOWER, NO TUB BATHS UNTIL CLEARED BY YOUR DOCTOR. * WEAR KAREN HOSE 20 HOURS PER DAY FOR 2 WEEKS. * YOU SHOULD USE A WALKER OR WHEELCHAIR FOR 4-6 WEEKS Standard migdalia/no adhesive- Please keep incision clean and dry. You may shower. [place] should be removed in 10-14 days at the office. This appointment is likely already scheduled for you. Please call if any increased redness, drainage, or swelling. FOLLOW UP VISIT: If appointment is not already scheduled: Please call [facility] to make a follow-up appointment for 2 weeks after your surgery at . VTE Core Measure Inpt VTE Proph given/why not?: Enoxaparin (Lovenox)SQ, SCD's
--- NOTE | 2016-09-24 14:29 | Discharge Summary ---
Discharge Summary Date of Service Sep 24, 2016. Discharge Summary Admission Date: Sep 20, 2016 at 22:09 Discharge Date: Sep 26, 2016 [place] [place] Diagnosis: Left femoral neck fracture, aspiration pneumonia Immunizations: Have You Had Influenza Vaccine: Yes Influenza Vaccine Date: Jan 13, 2007 History of Tetanus Vaccine?: YES- UNCERTAIN OF DATE History of Pneumococcal: No History of Hepatitis B Vaccine: No Procedures: Left hip nail placed Consultations: Orthopedic surgery Medication Reconciliation New Medications: Enoxaparin (Lovenox) 30 Mg/0.3 Ml Inj 30 MG SC DAILY for 10 Days, VIAL Levofloxacin (Levaquin) 750 Mg Tab 1 TAB PO Q2D for 5 Days, #3 TAB Amlodipine Besylate (Amlodipine Besylate) 5 Mg Tab 10 MG PO DAILY, #30 TAB Oxycodone HCl (Oxycodone HCl) 5 Mg Tab 5 MG PO Q4HWA PRN for Pain, #30 TAB Continued Medications: Albuterol (Ventolin Hfa) 60 Puffs/5400 Mcg Aers 2 PUFFS INH Q4H PRN for Shortness of Breath Atenolol (Tenormin) 100 Mg Tab 100 MG PO DAILY Budesonide/Formoterol Fumarate (Symbicort 160/4.5 Inhaler ) Aero 2 PUFFS INH BID, INHALER Cholecalciferol (Vitamin D 1000 Unit) 1,000 Unit Cap 1000 INTER.UNIT PO DAILY, CAP Clonazepam (Klonopin) 0.5 Mg Tab 0.5 MG PO BID PRN for Anxiety, TAB Clotrimazole W/ Betamethasone (Lotrisone) 1 Cre Cre 1 APPLN TOP BID, GM Fluticasone Propionate (Nasal) (Flonase Allergy Relief) 50 Mcg/Act Spr 2 SPRAYS LIO DAILY Furosemide (Lasix) 20 Mg Tab 20 MG PO DAILY, TAB Gabapentin (Neurontin) 100 Mg Cap 100 MG PO BID, CAP Oxybutynin Chloride (Oxybutynin Chloride Er) 5 Mg Tab 5 MG PO DAILY, TAB Paroxetine (Paxil) 20 Mg Tab 20 MG PO HS Pravastatin Sodium (Pravachol) 40 Mg Tab 40 MG PO DAILY, TAB Valsartan (Diovan) 160 Mg Tab 160 MG PO DAILY, TAB Discontinued Medications: Amlodipine (Norvasc) 5 Mg Tab 5 MG PO DAILY, TAB Discharge Exam Review of Systems: Constitutional: No fever, No chills, No sweats, No weakness Eyes: No worsening of vision, No eye pain, No redness, No discharge ENT: No hearing loss, No unusual epistaxis, No nasal symptoms, No sore throat, No tinnitus Respiratory: No cough, No sputum, No wheezing, No shortness of breath, No dyspnea on exertion Cardiovascular: No chest pain, No orthopnea, No PND, No edema Abdomen: No pain, No nausea, No vomiting, No diarrhea Musculoskeletal: + joint pain, No muscle pain, No swelling, No calf pain Genitourinary - Female: No dysuria, No urinary frequency, No urinary urgency , No urinary incontinence Neurologic: No memory loss, No paralysis, No weakness, No numbness/tingling Psychiatric: No depression symptoms, No anhedonism, No anxiety, No insomnia Hematologic / Lymphatic: No abnormal bleeding/bruising, No clotting problems , No swollen lymph nodes, No night sweats Integumentary: No rash, No itch Physical Exam: General Appearance: WD/WN, no apparent distress Eyes: normal inspection, PERRL, EOMI, sclerae normal ENT: normal ENT inspection, hearing grossly normal, TMs normal, pharynx normal Neck: supple, no adenopathy, thyroid normal, no JVD Respiratory/Chest: chest non-tender, lungs clear, normal breath sounds, no respiratory distress Cardiovascular: regular rate, rhythm, no edema, no gallop, no murmur Abdomen / GI: normal bowel sounds, non tender, soft, no organomegaly Extremities: normal inspection, no calf tenderness, normal capillary refill , no pedal edema Neurologic/Psychiatric: alert, normal mood/affect, normal reflexes, oriented x 3 Skin: normal color, warm/dry, no rash Lymphatic: no adenopathy Hospital Course (1) Hip fracture POD# 4 Left femoral neck fracture with nail placed Pain controlled with oxycodone 5 mg PO q 4hrs, continue on discharge No acute loss anemia noted PT consulted - Weight bearing as tolerating on left and non weight bearing on right Appreciate Orthopedic recs Lovenox 30 mg SQ daily on discharge for 10 more days as pt has allergy to NSAIDS F/U with Orthopedics on discharge Pt [place] [facility] (2) Hypertension HTN uncontrolled Likely secodnary to pain COntinue norvasc 5 mg PO daily Continue atenolol 100 mg PO daily Continue valsartan 160 mg PO daily Adjust medications as needed Adjust medications as needed Aspiration PNA - Cont levaquin 750 mg PO q 48 hrs, No leukocytosis or fevers present, 7 day course in all Speech therapist ovi pt, video swallow completed, diet changed to nectar thick on discharge, pt may benefit from grinder operator automatic as outpatient in regard to food choices as pt is vulnerable to cyclic vomiting and poor appetite COPD - stable cont symbicort Anxiety - Cont klonopin, controlled Total Time Spent: Greater than 30 minutes This includes examination of the patient, discharge planning, medication reconciliation, and communication with other providers. Discharge Instructions Please refer to the electronic Patient Visit Report (Discharge Instructions) for additional information. Additional Copies To Mani Jimenez D.O. Problem Qualifiers (1) Hip fracture: Encounter type: initial encounter Fracture type: closed (2) Hypertension: Hypertension type: essential hypertension Qualified Codes: I10 - Essential ( primary) hypertension
[2016-09-24] MEDS: ALBUT/IPRATROP 3MG/0.5MG NEB 3 ML VIAL INH SCH ×3 (15:55→23:12)
[2016-09-24] MEDS: HydrALAZINE HCL 20 MG/ML VIAL IV. PRN ×2 (16:22→20:34)
--- NOTE | 2016-09-24 16:29 | DIAGNOSTIC IMAGING REPORT ---
SINGLE VIEW CHEST CLINICAL HISTORY: Dyspnea. Hypoxia. FINDINGS: An AP, portable, upright chest radiograph is compared to study dated 09/20/2016. The examination is degraded by portable technique and patient rotation. The heart is enlarged and there is atherosclerotic calcification of the thoracic aorta. The pulmonary vasculature is noncongested. Patchy airspace consolidation is seen at the right lung base. The left lung is grossly clear and there is no large pleural effusion. No pneumothorax is seen. The skeletal structures are osteopenic. Compression deformities with evidence of previous vertebroplasty are seen in the lower thoracic and upper lumbar spine. IMPRESSION: 1. Cardiomegaly without radiographic evidence of congestive failure. 2. There is developing patchy airspace consolidation at the right lung base. Correlate clinically for evidence of aspiration pneumonitis/pneumonia. Radiographic follow-up to resolution is recommended. Electronically signed by: Kulwinder Chamberlain M.D. 09/24/2016 4:28 PM Dictated Date/Time: 09/24/2016 4:27 PM
[2016-09-24] MEDS ORDERED: ACETAMINOPHEN 325 MG TAB PO PRN (17:45)
[2016-09-24] MEDS: ENOXAPARIN 30 MG/0.3 ML SYR SQ SCH (18:14)
[2016-09-24] MEDS ORDERED: LEVOFLOXACIN / D5W 750 MG in PREMIXED IN D5W 150 ML IV SCH (20:00)
[2016-09-24] MEDS: PAROXETINE 20 MG TAB PO SCH (20:36)
[2016-09-25] VITALS (10 sets, daily range): BP systolic 130–158; BP diastolic 57–62; PULSE 71–95; TEMP 36.9–37.2; O2SAT 90–93
[2016-09-25] MEDS: ALBUT/IPRATROP 3MG/0.5MG NEB 3 ML VIAL INH SCH ×6 (01:48→23:06)
[2016-09-25] MEDS: BUDESONIDE/FORMOTEROL FUMARATE 160/4.5 60 PUFFS/INHALER INH SCH ×2 (08:16→20:28)
[2016-09-25] MEDS: FLUTICASONE PROPIONATE NA SPR 16 GM BTL NAE SCH (08:17)
[2016-09-25] MEDS: CLOTRIMAZOLE/BETAMETHASONE CR 15 GM TUBE EXT SCH ×2 (08:17→20:28)
[2016-09-25] MEDS: GABAPENTIN 100 MG CAP PO SCH ×2 (08:18→20:29)
[2016-09-25] MEDS: AMLODIPINE BESYLATE 5 MG TAB PO SCH (08:18)
[2016-09-25] MEDS: VALSARTAN 80 MG TAB PO SCH (08:20)
[2016-09-25] MEDS: PRAVASTATIN SOD 40 MG TAB PO SCH (08:20)
[2016-09-25] MEDS: CHOLECALCIFEROL 1000 INTER.UNIT TAB PO SCH (08:21)
[2016-09-25] MEDS: OXYBUTYNIN CHLORIDE 5 MG TABCR PO SCH (08:21)
[2016-09-25 08:26] LABS: BASO % 0.2 %; BASO ABS # 0.01 K/uL (0-0.2); COMPLETE YES; EOS % 0.9 %; HEMATOCRIT 28.8 % (37-47); IG% 0.5 %; LYMPH ABS # 0.64 K/uL (1.2-3.4); MEAN CELL VOLUME 78.3 fL (80-100); MEAN CORPUSCULAR HEMOGLOBIN 24.7 pg (25-34); MEAN CORPUSCULAR HGB CONC 31.6 g/dl (32-36); MEAN PLATELET VOLUME 8.3 fL (7.4-10.4); MONO % 8.9 %; NEUT % 78.5 %; PLATELET COUNT 177 K/uL (130-400); RED BLOOD COUNT 3.68 M/uL (4.2-5.4); WHITE BLOOD COUNT 5.83 K/uL (4.8-10.8)
[2016-09-25 09:00] LABS: BUN/CREATININE RATIO 15.2 (10-20); CREATININE 0.9 mg/dl (0.60-1.20); POTASSIUM 3.7 mmol/L (3.5-5.1)
--- NOTE | 2016-09-25 14:14 | Progress Note ---
Subjective Date of Service: Sep 25, 2016. Subjective Pt evaluation today including: conversation w/ patient, conversation w/ family , physical exam, chart review, lab review, review of studies, review of inpatient medication list Pt resting comfortably in bed Noted to have emesis yesterday with likely aspiration No fevers overnight No acute events overnight Problem List Medical Problems: (1) Anemia Status: Acute (2) COPD exacerbation Status: Acute (3) Dehydration Status: Acute (4) Hip fracture, right Status: Acute (5) Pyelonephritis Status: Acute Review of Systems Constitutional: No fever, No chills, No sweats, No weight loss ENT: No hearing loss, No unusual epistaxis, No nasal symptoms, No sore throat Respiratory: + shortness of breath, No cough, No sputum, No wheezing, No dyspnea on exertion Cardiac: No chest pain, No orthopnea, No PND, No edema Abdomen: No pain, No nausea, No vomiting, No diarrhea, No constipation Musculoskeletal: No joint pain, No muscle pain, No swelling, No calf pain Female : No dysuria, No urinary frequency, No hematuria, No incontinence Neurologic: No memory loss, No paralysis, No weakness, No numbness/tingling, No vertigo Psychiatric: No depression symptoms, No anhedonism, No anxiety, No insomnia Endo: No fatigue, No excessive thirst, No excessive urination Skin: No rash, No itch Objective Vital Signs Date Time Temp Pulse Resp B/P (MAP) Pulse Ox O2 Delivery O2 Flow Rate FiO2 09/25/16 11:49 37.2 80 18 130/62 (84) 91 Nasal Cannula 3.0 09/25/16 11:48 80 16 91 Nasal Cannula 3.0 09/25/16 10:01 91 Nasal Cannula 3.0 09/25/16 07:58 37.1 95 18 158/61 (93) 91 Nasal Cannula 3.0 09/25/16 07:12 Nasal Cannula 3.0 09/25/16 07:04 71 16 92 Nasal Cannula 3.5 09/24/16 23:15 Nasal Cannula 3.0 09/24/16 23:12 68 20 93 Nasal Cannula 3.0 09/24/16 22:45 36.9 77 16 136/62 (86) 91 Nasal Cannula 3.0 09/24/16 20:31 74 178/74 (108) 09/24/16 19:10 63 20 84 Nasal Cannula 2.0 09/24/16 16:15 Nasal Cannula 2.0 09/24/16 15:55 67 18 90 Nasal Cannula 2.0 09/24/16 15:15 36.9 69 18 186/71 (109) 92 Nasal Cannula 2.0 Physical Exam General Appearance: WD/WN, no apparent distress Eyes: normal inspection, PERRL, EOMI, sclerae normal Neck: supple, no adenopathy, thyroid normal, no JVD Respiratory/Chest: chest non-tender, no respiratory distress, no accessory muscle use, + decreased breath sounds Cardiovascular: regular rate, rhythm, no edema, no gallop, no JVD Abdomen: normal bowel sounds, non tender, soft, no organomegaly Neurologic/Psychiatric: no motor/sensory deficits, alert, normal mood/affect, oriented x 3 Laboratory Results Last 24 Hours Test 09/25/16 08:07 White Blood Count 5.83 K/uL Red Blood Count 3.68 M/uL Hemoglobin 9.1 g/dL Hematocrit 28.8 % Mean Corpuscular Volume 78.3 fL Mean Corpuscular Hemoglobin 24.7 pg Mean Corpuscular Hemoglobin Concent 31.6 g/dl Platelet Count 177 K/uL Mean Platelet Volume 8.3 fL Neutrophils (%) (Auto) 78.5 % Lymphocytes (%) (Auto) 11.0 % Monocytes (%) (Auto) 8.9 % Eosinophils (%) (Auto) 0.9 % Basophils (%) (Auto) 0.2 % Neutrophils # (Auto) 4.58 K/uL Lymphocytes # (Auto) 0.64 K/uL Monocytes # (Auto) 0.52 K/uL Eosinophils # (Auto) 0.05 K/uL Basophils # (Auto) 0.01 K/uL RDW Standard Deviation 54.9 fL RDW Coefficient of Variation 19.2 % Immature Granulocyte % (Auto) 0.5 % Immature Granulocyte # (Auto) 0.03 K/uL Sodium Level 141 mmol/L Potassium Level 3.7 mmol/L Chloride Level 109 mmol/L Carbon Dioxide Level 25 mmol/L Anion Gap 7.0 mmol/L Blood Urea Nitrogen 14 mg/dl Creatinine 0.90 mg/dl Est Creatinine Clear Calc Drug Dose 46.7 ml/min Estimated GFR () 70.0 Estimated GFR (Non- 60.4 BUN/Creatinine Ratio 15.2 Random Glucose 101 mg/dl Calcium Level 9.0 mg/dl Assessment and Plan (1) Hip fracture Assessment & Plan: POD# 3 Left femoral neck fracture with nail placed Pain controlled with oxycodone 5 mg PO q 4hrs, continue on discharge No acute loss anemia noted PT consulted - Weight bearing as tolerating on left and non weight bearing on right Appreciate Orthopedic recs Lovenox 30 mg SQ daily on discharge for 10 more days as pt has allergy to NSAIDS F/U with Orthopedics on discharge (2) Hypertension Assessment & Plan: HTN uncontrolled Likely secodnary to pain Improved with increase of norvasc 10 mg PO daily Continue atenolol 100 mg PO daily Continue valsartan 160 mg PO daily Adjust medications as needed Aspiration PNA - noted aspiration on 09/24, started on levaquin 750 mg IV daily, cont to monitor no leukocytosis noted COPD - stable cont symbicort, stable at this time, requiring O2 likely from aspiration PNA Anxiety - Cont klonopin, controlled at this time Problem Qualifiers (1) Hip fracture: Encounter type: initial encounter Fracture type: closed (2) Hypertension: Hypertension type: essential hypertension Qualified Codes: I10 - Essential ( primary) hypertension
--- NOTE | 2016-09-25 14:19 | DIAGNOSTIC IMAGING REPORT ---
VIDEO SWALLOW HISTORY: Dysphagia r/o aspiration TECHNIQUE: Video fluoroscopic evaluation of swallowing was performed in the AP and lateral projections by the speech pathology staff. The patient is fed nectar-thick and thin liquid barium, a barium coated wafer, and barium pudding. FLUOROSCOPY TIME: Deformity. COMPARISON STUDY: None. FINDINGS: There is normal hyoid excursion and epiglottic deflection. Trace penetration with thin liquids. Trace penetration with thin liquids. No aspiration with thicker liquids. IMPRESSION: 1. Trace aspiration and penetration with thin liquids. 2. Please see the speech pathologist report for detailed findings and recommendations. Electronically signed by: Nitin Fong M.D. 09/25/2016 2:17 PM Dictated Date/Time: 09/25/2016 2:16 PM
--- NOTE | 2016-09-25 16:29 | Progress Note ---
Subjective Date of Service: Sep 24, 2016. Subjective Pt evaluation today including: conversation w/ patient, physical exam, chart review, lab review, review of studies, review of inpatient medication list Problem List Medical Problems: (1) Anemia Status: Acute (2) COPD exacerbation Status: Acute (3) Dehydration Status: Acute (4) Hip fracture, right Status: Acute (5) Pyelonephritis Status: Acute Review of Systems Constitutional: No fever, No chills, No sweats, No weight loss Eyes: No worsening of vision, No eye pain, No redness, No discharge Respiratory: No cough, No sputum, No wheezing, No shortness of breath, No dyspnea on exertion Cardiac: No chest pain, No orthopnea, No PND, No edema, No claudication Abdomen: No pain, No nausea, No vomiting, No diarrhea, No constipation Musculoskeletal: No joint pain, No muscle pain, No swelling, No calf pain Female : No dysuria, No urinary frequency, No hematuria Neurologic: + weakness, No memory loss, No paralysis, No numbness/tingling Psychiatric: + anxiety, No depression symptoms, No anhedonism, No insomnia Endo: No fatigue, No excessive thirst Skin: No rash, No itch Objective Vital Signs Date Time Temp Pulse Resp B/P (MAP) Pulse Ox O2 Delivery O2 Flow Rate FiO2 09/25/16 15:18 73 16 92 Nasal Cannula 3.0 09/25/16 14:56 36.9 77 16 130/57 (81) 93 Nasal Cannula 4.0 09/25/16 11:49 37.2 80 18 130/62 (84) 91 Nasal Cannula 3.0 09/25/16 11:48 80 16 91 Nasal Cannula 3.0 09/25/16 10:01 91 Nasal Cannula 3.0 09/25/16 07:58 37.1 95 18 158/61 (93) 91 Nasal Cannula 3.0 09/25/16 07:12 Nasal Cannula 3.0 09/25/16 07:04 71 16 92 Nasal Cannula 3.5 09/24/16 23:15 Nasal Cannula 3.0 09/24/16 23:12 68 20 93 Nasal Cannula 3.0 09/24/16 22:45 36.9 77 16 136/62 (86) 91 Nasal Cannula 3.0 09/24/16 20:31 74 178/74 (108) 09/24/16 19:10 63 20 84 Nasal Cannula 2.0 Physical Exam General Appearance: WD/WN, no apparent distress Eyes: normal inspection, PERRL, EOMI, sclerae normal Neck: supple, no adenopathy, thyroid normal, no JVD Respiratory/Chest: chest non-tender, no respiratory distress, no accessory muscle use, + decreased breath sounds Cardiovascular: regular rate, rhythm, no edema, no gallop, no JVD Abdomen: normal bowel sounds, non tender, soft, no organomegaly Extremities: normal range of motion, non-tender, normal inspection, no pedal edema Neurologic/Psychiatric: no motor/sensory deficits, alert, normal mood/affect, oriented x 3 Laboratory Results Last 24 Hours Test 09/25/16 08:07 White Blood Count 5.83 K/uL Red Blood Count 3.68 M/uL Hemoglobin 9.1 g/dL Hematocrit 28.8 % Mean Corpuscular Volume 78.3 fL Mean Corpuscular Hemoglobin 24.7 pg Mean Corpuscular Hemoglobin Concent 31.6 g/dl Platelet Count 177 K/uL Mean Platelet Volume 8.3 fL Neutrophils (%) (Auto) 78.5 % Lymphocytes (%) (Auto) 11.0 % Monocytes (%) (Auto) 8.9 % Eosinophils (%) (Auto) 0.9 % Basophils (%) (Auto) 0.2 % Neutrophils # (Auto) 4.58 K/uL Lymphocytes # (Auto) 0.64 K/uL Monocytes # (Auto) 0.52 K/uL Eosinophils # (Auto) 0.05 K/uL Basophils # (Auto) 0.01 K/uL RDW Standard Deviation 54.9 fL RDW Coefficient of Variation 19.2 % Immature Granulocyte % (Auto) 0.5 % Immature Granulocyte # (Auto) 0.03 K/uL Sodium Level 141 mmol/L Potassium Level 3.7 mmol/L Chloride Level 109 mmol/L Carbon Dioxide Level 25 mmol/L Anion Gap 7.0 mmol/L Blood Urea Nitrogen 14 mg/dl Creatinine 0.90 mg/dl Est Creatinine Clear Calc Drug Dose 46.7 ml/min Estimated GFR () 70.0 Estimated GFR (Non- 60.4 BUN/Creatinine Ratio 15.2 Random Glucose 101 mg/dl Calcium Level 9.0 mg/dl Assessment and Plan (1) Hip fracture (2) Hypertension (1) Hip fracture POD# 2 Left femoral neck fracture with nail placed Pain controlled with oxycodone 5 mg PO q 4hrs, continue on discharge No acute loss anemia noted PT consulted - Weight bearing as tolerating on left and non weight bearing on right Appreciate Orthopedic recs Lovenox 30 mg SQ daily on discharge for 10 more days as pt has allergy to NSAIDS F/U with Orthopedics on discharge (2) Hypertension HTN uncontrolled Likely secodnary to pain COntinue norvasc 5 mg PO daily Continue atenolol 100 mg PO daily Continue valsartan 160 mg PO daily Adjust medications as needed COPD - stable cont symbicort Anxiety - Cont klonpin, controlled Problem Qualifiers (1) Hip fracture: Encounter type: initial encounter Fracture type: closed (2) Hypertension: Hypertension type: essential hypertension Qualified Codes: I10 - Essential ( primary) hypertension
[2016-09-25] MEDS: ENOXAPARIN 30 MG/0.3 ML SYR SQ SCH (16:50)
[2016-09-25] MEDS: PAROXETINE 20 MG TAB PO SCH (20:29)
[2016-09-25] MEDS: CLONAZEPAM 0.5 MG TAB PO PRN (20:47)
[2016-09-26] VITALS (8 sets, daily range): BP systolic 146–166; BP diastolic 66–70; PULSE 73–88; TEMP 36.9–37.1; O2SAT 74–98
[2016-09-26] MEDS: ALBUT/IPRATROP 3MG/0.5MG NEB 3 ML VIAL INH SCH ×4 (03:14→15:27)
[2016-09-26 06:45] LABS: BASO % 0.2 %; BASO ABS # 0.01 K/uL (0-0.2); COMPLETE YES; EOS % 1.4 %; HEMATOCRIT 30.6 % (37-47); IG% 0.8 %; LYMPH % 12.9 %; LYMPH ABS # 0.66 K/uL (1.2-3.4); MEAN CELL VOLUME 79.3 fL (80-100); MEAN CORPUSCULAR HEMOGLOBIN 24.1 pg (25-34); MEAN CORPUSCULAR HGB CONC 30.4 g/dl (32-36); MEAN PLATELET VOLUME 8.8 fL (7.4-10.4); MONO % 7.8 %; NEUT % 76.9 %; PLATELET COUNT 234 K/uL (130-400); RED BLOOD COUNT 3.86 M/uL (4.2-5.4)
[2016-09-26 07:25] LABS: CREATININE 0.94 mg/dl (0.60-1.20); POTASSIUM 3.7 mmol/L (3.5-5.1)
[2016-09-26] MEDS: CLOTRIMAZOLE/BETAMETHASONE CR 15 GM TUBE EXT SCH (09:00)
[2016-09-26] MEDS: FLUTICASONE PROPIONATE NA SPR 16 GM BTL NAE SCH (09:58)
[2016-09-26] MEDS: BUDESONIDE/FORMOTEROL FUMARATE 160/4.5 60 PUFFS/INHALER INH SCH (09:58)
[2016-09-26] MEDS: OXYBUTYNIN CHLORIDE 5 MG TABCR PO SCH (09:59)
[2016-09-26] MEDS: PRAVASTATIN SOD 40 MG TAB PO SCH (10:01)
[2016-09-26] MEDS: AMLODIPINE BESYLATE 5 MG TAB PO SCH (10:01)
[2016-09-26] MEDS: GABAPENTIN 100 MG CAP PO SCH (10:01)
[2016-09-26] MEDS: VALSARTAN 80 MG TAB PO SCH (10:02)
[2016-09-26] MEDS: CHOLECALCIFEROL 1000 INTER.UNIT TAB PO SCH (10:04)
[2016-09-26] MEDS: CLONAZEPAM 0.5 MG TAB PO PRN (10:19)
[2016-09-26] MEDS ORDERED: LEVO750T23 PO (12:33)
[2016-09-26] MEDS ORDERED: NRV5 PO (12:33)
== END 2016-09-26 16:30 | DRG 477 ==
LOC: C.EDB 15:32 → C.MSW 22:09 → ENRESERV 22:47
PROVIDERS: ADMIT Family Medicine; ATTEND Hospitalist
PROC: 0QB70ZX Excision of Left Upper Femur, Open Approach, Diagnostic (ICD-10-PCS; principal; 2016-09-21 11:30)
DX: M84.352A Stress fracture, left femur, initial encounter for fracture (principal); J69.0 Pneumonitis due to inhalation of food and vomit; N17.9 Acute kidney failure, unspecified; M89.9 Disorder of bone, unspecified; J44.9 Chronic obstructive pulmonary disease, unspecified; I12.9 Hypertensive chronic kidney disease with stage 1 through stage 4 chronic kidney disease, or unspecified chronic kidney disease; N18.9 Chronic kidney disease, unspecified; Z66 Do not resuscitate; F32.9 Major depressive disorder, single episode, unspecified; M81.0 Age-related osteoporosis without current pathological fracture; M19.90 Unspecified osteoarthritis, unspecified site; D64.9 Anemia, unspecified; M54.5 Low back pain; F41.9 Anxiety disorder, unspecified; R32 Unspecified urinary incontinence; E78.00 Pure hypercholesterolemia, unspecified; Z79.899 Other long term (current) drug therapy; Z79.01 Long term (current) use of anticoagulants

== ENCOUNTER 2016-12-13 14:26 | Inpatient (IN) | payer OTHER, MEDICARE ==
[~2016-12-13] VITALS: Ht 160 cm; Wt 68.5 kg
[~2016-12-13 14:26] MED LIST changes: -ACET-1138 PO; -ALBU1AER9 INH; -AMLO-114 PO; -CHOL100010 PO; +CHOL100027 PO; +CLON0.5T3 PO; -CLON1TAB3 PO; -DOCU100T7 PO; +DVN/160 PO; -DVNC160 PO; +FLUT0.15 NAE; +LVNIS30 SC; -LVQ750 PO; +NRV5 PO; +OXYB5TAB PO; +PRVHFAIN INH; +RXC5 PO
[2016-12-13] MEDS ORDERED: ACETAMINOPHEN 500 MG TAB PO STA (14:56)
--- NOTE | 2016-12-13 15:02 | EMERGENCY ROOM VISIT NOTE ---
History First contact with patient: 14:48 Chief Complaint: HIP PAIN Stated Complaint: LEVEL 9 PAIN IN LEFT HIP - POSSIBLE FRACTURE History of Present Illness The patient is a 81 year old female who presents to the Emergency Room via private vehicle accompanied by daughter with complaints of "level IX pain and left hip, possible fracture". The patient states that she has a history of occult fracture in the hip. She notes that this past Saturday she went to get out of bed, and had extreme pain in the left hip. She's been trying to use her walker, but has extreme pain with ambulation of the left leg. She tried to schedule an appointment with [facility] [place], they were unable to see her today. The daughter notes that they are aware she is here. The patient also has had bodyaches after taking iron supplements, but has since stopped that. She denies any fevers, chills, chest pain or shortness of breath. Review of Systems A complete 10-point Review of Systems was discussed with the patient, with pertinent positives and negatives listed in the History of Present Illness. All remaining Review of Systems questions can be considered negative unless otherwise specified. Past Medical/Surgical History Medical Problems: (1) Arthritis (2) Compression fracture of vertebra (3) Hip fracture (4) Hypertension (5) Left hip pain (6) UTI (urinary tract infection) (7) Weakness Surgical Problems: (1) Post-operative state Family History Gallbladder disease Hypertension Kidney disease Kidney stones Social History Smoking Status: Current Every Day Smoker Alcohol Use: none Drug Use: none Marital Status: Occupation Status: retired Current/Historical Medications Scheduled Amlodipine (Norvasc), 10 MG PO QAM Atenolol (Tenormin), 100 MG PO QAM Budesonide/Formoterol Fumarate (Symbicort 160/4.5 Inhaler ), 2 PUFFS INH BID Cholecalciferol (Vitamin D 1000 Unit), 1,000 INTER.UNIT PO DAILY Clonazepam (Klonopin), 0.5 MG PO BID Fluticasone Propionate (Nasal) (Flonase Allergy Relief), 2 SPRAYS LIO DAILY Furosemide (Lasix), 20 MG PO DAILY Gabapentin (Neurontin), 100 MG PO BID Oxybutynin Chloride (Oxybutynin Chloride Er), 5 MG PO QAM Paroxetine (Paxil), 40 MG PO HS Pravastatin Sodium (Pravachol), 40 MG PO QPM Valsartan (Diovan), 160 MG PO QAM Scheduled PRN Albuterol (Ventolin Hfa), 2 PUFFS INH Q4H PRN for Shortness of Breath Clotrimazole W/ Betamethasone (Lotrisone), 1 APPLN TOP BID PRN for PRN Physical Exam Vital Signs Date Time Temp Pulse Resp B/P (MAP) Pulse Ox O2 Delivery O2 Flow Rate FiO2 12/13/16 17:44 70 18 198/78 Room Air 12/13/16 16:21 65 18 190/80 92 Room Air 12/13/16 14:29 36.4 59 22 198/83 94 Room Air Physical Exam VITAL SIGNS - Vital signs and nursing notes were reviewed. Hypertensive. Stable. GENERAL -81-year-old female appearing her stated age who is in no acute distress. Communicates well with provider and answers questions appropriately. SKIN - Without rashes. Skin overlying the left hip is edematous, but there are no bruises. Skin is intact. HEAD - NC/AT. EYES - Sclera anicteric. EARS - No deformities of external structures noted on gross examination bilaterally. NOSE - Midline and without cyanosis. No epistaxis or purulent drainage noted. MOUTH/OROPHARYNX - Without perioral cyanosis. LUNGS - Chest wall symmetric without accessory muscle use, intercostals retractions, or central cyanosis. Diffuse minimal expiratory wheezes noted bilaterally. CARDIAC - RRR with S1/S2. No murmur, rubs, or gallops appreciated. ABDOMEN - Abdominal contour without pulsations or visible masses. BS normoactive all four quadrants. No tenderness, palpable masses, hepatosplenomegaly, or ascites noted. EXTREMITIES - No clubbing or peripheral cyanosis. No pretibial edema present. Left hip tenderness over joint. Tenderness over left anterior duncan. +5/5 strength noted in UE/LE bilaterally. She is neurovascularly intact in this extremity. Medical Decision & Procedures ER Provider Diagnostic Interpretation: L PELVIS/UNILATERAL HIP 2-3VIEWS CLINICAL HISTORY: Left hip pain, no injury. Hx fracture COMPARISON: 09/20/2016 DISCUSSION: Interval left hip nailing type procedure. Pre-existing total right hip arthroplasty. No acute bony abnormality. Postoperative changes low lumbar spine. There is no evidence for soft tissue swelling. IMPRESSION: No acute process status post left hip nailing procedure. Pre-existing total right hip arthroplasty. No acute bony abnormality. The above report was generated using voice recognition software. It may contain grammatical, syntax or spelling errors. L TIBIA/FIBULA 2 VIEWS ROUTINE CLINICAL HISTORY: Left leg pain, no injury. Hx fracture pain COMPARISON: None. DISCUSSION: Mild soft tissue edema. No acute process of the tibia or fibula. Osteopenia. IMPRESSION: Mild/moderate soft tissue edema. Osteopenia. No acute bony abnormality. The above report was generated using voice recognition software. It may contain grammatical, syntax or spelling errors. Electronically signed by: Nitin Fong M.D. 12/13/2016 4:21 PM Dictated Date/Time: 12/13/2016 4:19 PM Electronically signed by: Nitin Fong M.D. 12/13/2016 4:18 PM Dictated Date/Time: 12/13/2016 4:17 PM L HIP-LOWER EXTREMITY WITHOUT CT DOSE: 525.65 mGycm HISTORY: Pain left hip Left hip pain, hx occult fracture. TECHNIQUE: Multiaxial CT images of the left hip were performed and reformatted in the sagittal and coronal plane without the use of contrast. A dose lowering technique was utilized adhering to the principles of ALARA. COMPARISON: None. FINDINGS: Findings consistent left hip nailing procedure. Subtle cortical defect anterior acetabular margin. No evidence dislocation. Longstem intramedullary tim within the femur. No acute bony abnormality specifically of the femur. All major muscle bundles are unremarkable. IMPRESSION: 1. Nondisplaced hairline cortical fracture anterior acetabular margin. 2. Postoperative changes left hip and left femur 3. No additional acute finding. The above report was generated using voice recognition software. It may contain grammatical, syntax or spelling errors. Electronically signed by: Nitin Fong M.D. 12/13/2016 5:20 PM Dictated Date/Time: 12/13/2016 5:15 PM [~ rep ct add3]] PELVIS/LEFT HIP MRI HISTORY: Left hip pain. Left hip fx TECHNIQUE: Multiplanar multisequence MRI of the pelvis and left hip were performed without the use of intravenous contrast. COMPARISON STUDY: Left hip CT 12/13/2016. FINDINGS: There is evidence for a right total hip arthroplasty. There is a left femoral intramedullary tim with an interlocking femoral neck pin. This results in near nondiagnostic evaluation of the left femur. However, the visualized portions of the left femur appear to be intact. There are no fractures within the left acetabulum to correspond to the CT abnormality. Evidence for prior L4 vertebroplasty. No significant hip effusion. Thickening and edema within the distal left gluteus medius tendon. This is consistent with a tendinopathy. Mild subcutaneous edema within the gluteal region. Small focus of fluid within the subcutaneous fat of the left lateral hip which measures 2.1 x 1.0 cm. This may represent an old seroma/hematoma. IMPRESSION: 1. No acute fracture or dislocation within the pelvis or left hip. Specifically, no fracture within the left acetabulum to correspond to the CT abnormality. 2. Mild thickening and edema at the distal left gluteus medius tendon. This is consistent with a tendinopathy. 3. Small subcutaneous fluid collection within the left lateral hip which may be due to an old postoperative seroma/hematoma. Electronically signed by: Enrrique Bravo M.D. 12/13/2016 9:57 PM Dictated Date/Time: 12/13/2016 9:51 PM Laboratory Results 12/13/16 15:10 Red Blood Count 4.13, Mean Corpuscular Volume 83.1, Mean Corpuscular Hemoglobin 25.7, Mean Corpuscular Hemoglobin Concent 30.9, Mean Platelet Volume 9.0, Neutrophils (%) (Auto) 64.3, Lymphocytes (%) (Auto) 21.6, Monocytes (%) (Auto) 11.1, Eosinophils (%) (Auto) 1.8, Basophils (%) (Auto) 0.7, Neutrophils # (Auto ) 3.60, Lymphocytes # (Auto) 1.21, Monocytes # (Auto) 0.62, Eosinophils # (Auto ) 0.10, Basophils # (Auto) 0.04 12/13/16 15:10 Test 12/13/16 15:10 12/13/16 15:55 White Blood Count 5.60 K/uL (4.8-10.8) Red Blood Count 4.13 M/uL (4.2-5.4) Hemoglobin 10.6 g/dL (12.0-16.0) Hematocrit 34.3 % (37-47) Mean Corpuscular Volume 83.1 fL (80-100) Mean Corpuscular Hemoglobin 25.7 pg (25-34) Mean Corpuscular Hemoglobin Concent 30.9 g/dl (32-36) Platelet Count 262 K/uL (130-400) Mean Platelet Volume 9.0 fL (7.4-10.4) Neutrophils (%) (Auto) 64.3 % Lymphocytes (%) (Auto) 21.6 % Monocytes (%) (Auto) 11.1 % Eosinophils (%) (Auto) 1.8 % Basophils (%) (Auto) 0.7 % Neutrophils # (Auto) 3.60 K/uL (1.4-6.5) Lymphocytes # (Auto) 1.21 K/uL (1.2-3.4) Monocytes # (Auto) 0.62 K/uL (0.11-0.59) Eosinophils # (Auto) 0.10 K/uL (0-0.5) Basophils # (Auto) 0.04 K/uL (0-0.2) RDW Standard Deviation 53.9 fL (36.4-46.3) RDW Coefficient of Variation 17.9 % (11.5-14.5) Immature Granulocyte % (Auto) 0.5 % Immature Granulocyte # (Auto) 0.03 K/uL (0.00-0.02) Anion Gap 7.0 mmol/L (3-11) Est Creatinine Clear Calc Drug Dose 34.7 ml/min Estimated GFR () 49.4 Estimated GFR (Non- 42.7 BUN/Creatinine Ratio 13.3 (10-20) Calcium Level 9.9 mg/dl (8.5-10.1) Total Bilirubin 0.5 mg/dl (0.2-1) Aspartate Amino Transf (AST/SGOT) 22 U/L (15-37) Alanine Aminotransferase (ALT/SGPT) 18 U/L (12-78) Alkaline Phosphatase 72 U/L (45-117) C-Reactive Protein 0.58 mg/dl (0-0.29) Total Protein 7.5 gm/dl (6.4-8.2) Albumin 3.7 gm/dl (3.4-5.0) Globulin 3.8 gm/dl (2.5-4.0) Albumin/Globulin Ratio 1.0 (0.9-2) Urine Color YELLOW Urine Appearance CLEAR (CLEAR) Urine pH 8.0 (4.5-7.5) Urine Specific [place] 1.009 (1.000-1.030) Urine Protein NEG (NEG) Urine Glucose (UA) NEG (NEG) Urine Ketones NEG (NEG) Urine Occult Blood NEG (NEG) Urine Nitrite NEG (NEG) Urine Bilirubin NEG (NEG) Urine Urobilinogen NEG (NEG) Urine Leukocyte Esterase NEG (NEG) Medications Administered Medications (Trade) Dose Ordered Sig/Rashi Route Start Time Stop Time Status Last Admin Dose Admin Acetaminophen (Tylenol Tab) 500 mg NOW STAT PO 12/13/16 14:56 12/13/16 14:58 DC 12/13/16 16:26 500 MG Medical Decision Patient was seen and evaluated as above. She presents to us today with left hip pain. No trauma. I am familiar with the patient case as I had treated her on a previous visit. She has a history of occult fracture of the hip. X-rays were obtained and found to be negative. Decision was made to obtain a CT. This reveals hairline fracture. I discussed this with Dr. Singh, at [facility]. We discussed conservative management, as it appears the fracture is nonoperative. I informed him that a small ambulatory trial was had here at the patient tried able to the bathroom, and is very unstable. We discussed benefits versus risk of allowed the patient to go home, or stay here with admission to the medicine team and disposition likely to a rehabilitation center. I chose the latter, after discussing benefit versus risk with the patient and family. This does appear to be reasonable. No leukocytosis. Anemia noted with hemoglobin of 10.6. This is improved compared to previous. Metabolic panel reveals no evidence of kidney or liver failure. C -reactive protein high at .58. Urine reveals high pH, otherwise negative. Decision was then made to obtain an MRI secondary to clinical concern of potential additional findings via MRI. MRI results as above, no acute fracture , however at the time this result was had the patient was already admitted. I do believe that further evaluation by the inpatient team to include but not limited to perhaps PT and OT eval would be reasonable. Please refer to further documentation regarding her stay, as the case was discussed with the attending physician, and subsequently the hospitalist team. She was given Tylenol for her pain and declined all others. She did indicate as well as the family member that the patient is able to tolerate Dilaudid. In the evaluation and treatment of this patient, the following differential diagnoses were considered: Hip Fracture, Hip Dislocation, Greater Trochanteric Bursitis, Musculoskeletal Pain, Lumbar Radiculopathy. Impression Primary Impression: Left hip pain Additional Impression: Anemia Departure Information Dispostion Admitted as an inpatient Condition FAIR Referrals Mani Jimenez D.O. (PCP) Patient Instructions My [facility] Problem Qualifiers
[2016-12-13 15:40] LABS: BUN/CREATININE RATIO 13.3 (10-20); C-REACTIVE PROTEIN 0.58 mg/dl (0-0.29); CALCIUM 9.9 mg/dl (8.5-10.1); CREATININE 1.2 mg/dl (0.60-1.20); POTASSIUM 3.9 mmol/L (3.5-5.1)
[2016-12-13 15:51] LABS: BASO % 0.7 %; BASO ABS # 0.04 K/uL (0-0.2); COMPLETE YES; EOS % 1.8 %; HEMATOCRIT 34.3 % (37-47); IG% 0.5 %; LYMPH % 21.6 %; LYMPH ABS # 1.21 K/uL (1.2-3.4); MEAN CELL VOLUME 83.1 fL (80-100); MEAN CORPUSCULAR HEMOGLOBIN 25.7 pg (25-34); MEAN CORPUSCULAR HGB CONC 30.9 g/dl (32-36); MONO % 11.1 %; NEUT % 64.3 %; PLATELET COUNT 262 K/uL (130-400); RED BLOOD COUNT 4.13 M/uL (4.2-5.4)
--- NOTE | 2016-12-13 16:20 | DIAGNOSTIC IMAGING REPORT ---
L PELVIS/UNILATERAL HIP 2-3VIEWS CLINICAL HISTORY: Left hip pain, no injury. Hx fracture COMPARISON: 09/20/2016 DISCUSSION: Interval left hip nailing type procedure. Pre-existing total right hip arthroplasty. No acute bony abnormality. Postoperative changes low lumbar spine. There is no evidence for soft tissue swelling. IMPRESSION: No acute process status post left hip nailing procedure. Pre-existing total right hip arthroplasty. No acute bony abnormality. The above report was generated using voice recognition software. It may contain grammatical, syntax or spelling errors. Electronically signed by: Nitin Fong M.D. 12/13/2016 4:18 PM Dictated Date/Time: 12/13/2016 4:17 PM
--- NOTE | 2016-12-13 16:22 | DIAGNOSTIC IMAGING REPORT ---
L TIBIA/FIBULA 2 VIEWS ROUTINE CLINICAL HISTORY: Left leg pain, no injury. Hx fracture pain COMPARISON: None. DISCUSSION: Mild soft tissue edema. No acute process of the tibia or fibula. Osteopenia. IMPRESSION: Mild/moderate soft tissue edema. Osteopenia. No acute bony abnormality. The above report was generated using voice recognition software. It may contain grammatical, syntax or spelling errors. Electronically signed by: Nitin Fong M.D. 12/13/2016 4:21 PM Dictated Date/Time: 12/13/2016 4:19 PM
[2016-12-13] MEDS ORDERED: AMLO-114 PO (16:31)
[2016-12-13 16:33] LABS: URINE APPEARANCE CLEAR (CLEAR); URINE BILIRUBIN NEG (NEG); URINE COLOR YELLOW; URINE NITRITE NEG (NEG); URINE SPECIFIC GRAVITY 1.009 (1.000-1.030); UROBILINOGEN NEG (NEG); ZZUR CULT IF INDIC CLEAN CATCH NO
[2016-12-13 16:35] LABS: MANUAL MICROSCOPIC REQUIRED? NO; REVIEW REQ? NO
--- NOTE | 2016-12-13 17:21 | DIAGNOSTIC IMAGING REPORT ---
L HIP-LOWER EXTREMITY WITHOUT CT DOSE: 525.65 mGycm HISTORY: Pain left hip Left hip pain, hx occult fracture. TECHNIQUE: Multiaxial CT images of the left hip were performed and reformatted in the sagittal and coronal plane without the use of contrast. A dose lowering technique was utilized adhering to the principles of ALARA. COMPARISON: None. FINDINGS: Findings consistent left hip nailing procedure. Subtle cortical defect anterior acetabular margin. No evidence dislocation. Longstem intramedullary tim within the femur. No acute bony abnormality specifically of the femur. All major muscle bundles are unremarkable. IMPRESSION: 1. Nondisplaced hairline cortical fracture anterior acetabular margin. 2. Postoperative changes left hip and left femur 3. No additional acute finding. The above report was generated using voice recognition software. It may contain grammatical, syntax or spelling errors. Electronically signed by: Nitin Fong M.D. 12/13/2016 5:20 PM Dictated Date/Time: 12/13/2016 5:15 PM
[2016-12-13] MEDS ORDERED: HYDROmorphone INJ 0.5 MG/0.5 ML SYR IV PRN (19:15)
[2016-12-13] MEDS ORDERED: POLYETHYLENE (MIRALAX) 17 GM PACK PO PRN ×2 (19:15)
[2016-12-13] MEDS ORDERED: ALBUTEROL HFA 8 GM INHALER INH PRN (19:15)
[2016-12-13] MEDS ORDERED: SOD PHOSPHATE/SOD BIPHOSPHATE ENEMA 132 ML BTL PR PRN (19:15)
[2016-12-13] MEDS ORDERED: NALOXONE HCL 0.4 MG/1 ML VIAL/CARP IV PRN (19:15)
[2016-12-13] MEDS ORDERED: BISACODYL 10 MG SUPP PR PRN (19:15)
[2016-12-13] MEDS ORDERED: MAGNESIUM HYDROXIDE SUSP 30 ML UDC PO PRN ×2 (19:15)
[2016-12-13] MEDS ORDERED: ONDANSETRON INJ 2 MG/ML 2 ML VIAL IV PRN (19:15)
[2016-12-13] MEDS ORDERED: ALUMINUM/MAGNESIUM/SIMETH (MAALOX MAX) 30 ML UDC PO PRN (19:15)
[2016-12-13] MEDS ORDERED: CLOTRIMAZOLE/BETAMETHASONE CR 15 GM TUBE EXT PRN (19:15)
[2016-12-13 19:36] VITALS: Ht 160 cm; Wt 68.5 kg
--- NOTE | 2016-12-13 19:42 | History and Physical ---
History & Physical Date & Time of Service: Dec 13, 2016 at 19:39 Chief Complaint: Level 9 Pain In Left Hip - Possible Fracture Primary Care Physician: Mani Jimenez D.O. History of Present Illness Source: patient, family Ms. Hughes is an 81 y/o female with PMHx of HTN, COPD, HLD, Vit D Deficiency, Anxiety/Depression, and Multiple Pathological Fx who presents to the ED c/o L hip pain that started 4-5 days ago. Patient has had multiple back surgeries, a R hip fx in 2015, and a L hip fx in August 2016. This past weekend patient notes a sudden onset of L hip pain that was worse than she normally experiences. She denies falls or trauma to this hip and reports she easily fractures bones. She normally ambulates with a walker but cannot place weight on her L hip without 9- 10/10 pain. She initially presented to [facility] yesterday but was D/C'd with ibuprofen and a muscle relaxer. She denies numbness/tingling in this leg. She does have increased lower extremity edema that appears like lymphedema. CT of hip revealed a nondisplaced hairline cortical fx of the anterior acetabular margin. Orthopedics were consulted and suggest a non-surgical situation. Patient attempted ambulation trial with toe touch weightbearing status and nearly sustained a fall. Rehab options supplied however patient would like to return home if possible. She denies fever/chills, dizziness, CP, SOB, N/V, abdominal pain, dysuria, constipation/diarrhea. Of note, daughter reports to avoid narcotics as patient hallucinates and does not tolerate them well. Reports last hospital stay she was confused and called 911 from the hospital. However, daughter states Dilaudid was the only medication that didn't do this and did explain that this is a strong narcotic medication but she reports tolerance. Patient will be admitted to Med/Surg for ambulatory dysfunction and PT/OT evaluations for possible rehab placement. Past Medical/Surgical History Medical Problems: (1) Arthritis Status: Chronic (2) Compression fracture of vertebra Status: Chronic (3) Hypertension Status: Chronic Family History Gallbladder disease Hypertension Kidney disease Kidney stones Social History Smoking Status: Current Every Day Smoker Smokeless Tobacco Use: No Alcohol Use: none Drug Use: none Marital Status: Occupational Status: retired Immunizations History of Influenza Vaccine: Yes Influenza Vaccine Date: Jan 13, 2007 History of Tetanus Vaccine?: YES- UNCERTAIN OF DATE History of Pneumococcal: No History of Hepatitis B Vaccine: No Multi-Drug Resistant Organisms History of MDRO: No Allergies Coded Allergies: Cantaloupe (Verified Allergy, Mild, 12/13/16) [place] (Verified Allergy, Mild, 12/13/16) [place] (Verified Allergy, Mild, 12/13/16) Broccoli (Unverified Allergy, Unknown, HIVES/SWELLING, 12/13/16) Cauliflower (Unverified Allergy, Unknown, HIVES, 12/13/16) NSAIDs (Verified Allergy, Unknown, unk, 12/13/16) Penicillins (Verified Allergy, Unknown, 12/13/16) Morphine (Unverified Adverse Reaction, Unknown, PT DOESNT TOLERATE, ) Pseudoephedrine (Verified Adverse Reaction, Unknown, epistaxis, 12/13/16) (from nasal spray) Home Medications Scheduled Amlodipine (Norvasc), 10 MG PO QAM Atenolol (Tenormin), 100 MG PO QAM Budesonide/Formoterol Fumarate (Symbicort 160/4.5 Inhaler ), 2 PUFFS INH BID Cholecalciferol (Vitamin D 1000 Unit), 1,000 INTER.UNIT PO DAILY Clonazepam (Klonopin), 0.5 MG PO BID Fluticasone Propionate (Nasal) (Flonase Allergy Relief), 2 SPRAYS LIO DAILY Furosemide (Lasix), 20 MG PO DAILY Gabapentin (Neurontin), 100 MG PO BID Oxybutynin Chloride (Oxybutynin Chloride Er), 5 MG PO QAM Paroxetine (Paxil), 40 MG PO HS Pravastatin Sodium (Pravachol), 40 MG PO QPM Valsartan (Diovan), 160 MG PO QAM Scheduled PRN Albuterol (Ventolin Hfa), 2 PUFFS INH Q4H PRN for Shortness of Breath Clotrimazole W/ Betamethasone (Lotrisone), 1 APPLN TOP BID PRN for PRN Review of Systems Constitutional: No fever, No chills ENT: No nasal symptoms, No sore throat Respiratory: No cough, No shortness of breath Cardiovascular: No chest pain, No palpitations Abdomen: No pain, No nausea, No vomiting, No diarrhea, No constipation Musculoskeletal: + joint pain (L hip pain with weightbearing), + swelling ( bilateral lower extremities), No calf pain Genitourinary - Female: No dysuria Neurologic: No numbness/tingling Hematologic / Lymphatic: No abnormal bleeding/bruising, No clotting problems Integumentary: No rash Physical Exam Vital Signs Date Time Temp Pulse Resp B/P (MAP) Pulse Ox O2 Delivery O2 Flow Rate FiO2 12/13/16 17:44 70 18 198/78 Room Air 12/13/16 16:21 65 18 190/80 92 Room Air 12/13/16 14:29 36.4 59 22 198/83 94 Room Air General Appearance: no apparent distress Head: normocephalic, atraumatic Eyes: sclerae normal ENT: hearing grossly normal Neck: supple, no JVD, trachea midline Respiratory/Chest: lungs clear, normal breath sounds, no respiratory distress, no accessory muscle use Cardiovascular: regular rate, rhythm, no gallop, no murmur Abdomen/GI: normal bowel sounds, non tender, soft Extremities/Musculoskelatal: no calf tenderness, no pedal edema, + swelling ( bilateral lymphedema in lower extremities) Neurologic/Psych: alert, oriented x 3 (intermittently confused) Skin: normal color, warm/dry Diagnostics Laboratory Results Results Past 24 Hours Test 12/13/16 15:10 12/13/16 15:55 Range/Units White Blood Count 5.60 4.8-10.8 K/uL Red Blood Count 4.13 4.2-5.4 M/uL Hemoglobin 10.6 12.0-16.0 g/dL Hematocrit 34.3 37-47 % Mean Corpuscular Volume 83.1 80-100 fL Mean Corpuscular Hemoglobin 25.7 25-34 pg Mean Corpuscular Hemoglobin Concent 30.9 32-36 g/dl Platelet Count 262 130-400 K/uL Mean Platelet Volume 9.0 7.4-10.4 fL Neutrophils (%) (Auto) 64.3 % Lymphocytes (%) (Auto) 21.6 % Monocytes (%) (Auto) 11.1 % Eosinophils (%) (Auto) 1.8 % Basophils (%) (Auto) 0.7 % Neutrophils # (Auto) 3.60 1.4-6.5 K/uL Lymphocytes # (Auto) 1.21 1.2-3.4 K/uL Monocytes # (Auto) 0.62 0.11-0.59 K/uL Eosinophils # (Auto) 0.10 0-0.5 K/uL Basophils # (Auto) 0.04 0-0.2 K/uL RDW Standard Deviation 53.9 36.4-46.3 fL RDW Coefficient of Variation 17.9 11.5-14.5 % Immature Granulocyte % (Auto) 0.5 % Immature Granulocyte # (Auto) 0.03 0.00-0.02 K/uL Sodium Level 139 136-145 mmol/L Potassium Level 3.9 3.5-5.1 mmol/L Chloride Level 103 98-107 mmol/L Carbon Dioxide Level 29 21-32 mmol/L Anion Gap 7.0 3-11 mmol/L Blood Urea Nitrogen 16 7-18 mg/dl Creatinine 1.20 0.60-1.20 mg/dl Est Creatinine Clear Calc Drug Dose 34.7 ml/min Estimated GFR () 49.4 Estimated GFR (Non- 42.7 BUN/Creatinine Ratio 13.3 10-20 Random Glucose 85 70-99 mg/dl Calcium Level 9.9 8.5-10.1 mg/dl Total Bilirubin 0.5 0.2-1 mg/dl Aspartate Amino Transf (AST/SGOT) 22 15-37 U/L Alanine Aminotransferase (ALT/SGPT) 18 12-78 U/L Alkaline Phosphatase 72 45-117 U/L C-Reactive Protein 0.58 0-0.29 mg/dl Total Protein 7.5 6.4-8.2 gm/dl Albumin 3.7 3.4-5.0 gm/dl Globulin 3.8 2.5-4.0 gm/dl Albumin/Globulin Ratio 1.0 0.9-2 Urine Color YELLOW Urine Appearance CLEAR CLEAR Urine pH 8.0 4.5-7.5 Urine Specific [place] 1.009 1.000-1.030 Urine Protein NEG NEG Urine Glucose (UA) NEG NEG Urine Ketones NEG NEG Urine Occult Blood NEG NEG Urine Nitrite NEG NEG Urine Bilirubin NEG NEG Urine Urobilinogen NEG NEG Urine Leukocyte Esterase NEG NEG Diagnostic Radiology L HIP-LOWER EXTREMITY WITHOUT FINDINGS: Findings consistent left hip nailing procedure. Subtle cortical defect anterior acetabular margin. No evidence dislocation. Longstem intramedullary tim within the femur. No acute bony abnormality specifically of the femur. All major muscle bundles are unremarkable. IMPRESSION: 1. Nondisplaced hairline cortical fracture anterior acetabular margin. 2. Postoperative changes left hip and left femur 3. No additional acute finding. Impression Assessment and Plan Ms. Hughes is an 81 y/o female with PMHx of HTN, COPD, HLD, Vit D Deficiency, Anxiety/Depression, and Multiple Pathological Fx who presents to the ED c/o L hip pain that started 4-5 days ago. Ambulatory Dysfunction: - PT/OT evaluations and social service consultation - Per recommendations from orthopedics - trial of toe touch weightbearing status and non-surgical - May need to reconsult for further assessment and recommendations Non-Traumatic Pathologic Fx - Likely 2/2 Osteoporosis: - Recent L hip fx repair August 2016 - no presents with non-displaced hairline cortical fx of anterior acetabular margin - MRI pending - Tylenol 1000 mg IV PRN and Dilaudid 0.25 mg Q3H PRN; Lidoderm patch - Vitamin D 1000 IU daily COPD without Exacerbation: - Ventolin 2 puffs Q4H PRN, Symbicort 2 puffs BID HTN: Uncontrolled - May be pain response - anxiety/stress - Norvasc 10 mg daily (may be cause of worsening lower extremity edema) - Atenolol 100 mg daily, Lasix 20 mg daily, and Valsartan 160 mg daily Anxiety/Depression: - Clonazepam 0.5 mg BID and Paxil 40 mg daily HLD: - Pravastatin 40 mg daily DVT Prophylaxis: SCDs Code Status: DO NOT RESUSCITATE Disposition: - Pain management and PT/OT evaluations - likely need placement Attending Addendum: I have physically seen this patient, have directed the physician assistants medical activities, and agree with the H&P as noted above with the following exceptions as noted. Assessment and Plan: Nondisplaced hairline cortical fracture of anterior acetabular margin-- Patient be admitted to the medical surgical floor. Pain control with Tylenol, Lidoderm patch. Dilaudid IV when necessary severe pain. Orthopedics has already been consulted by the ED. Consult PT/OT/social science analyst. Hypertension-- Atenolol 100 mg by mouth daily, Lasix 20 mg by mouth daily, valsartan 160 mg by mouth daily and amlodipine 10 mg by mouth daily. Optimize pain control. COPD-- Continue Ventolin and Symbicort. Anxiety/depression-- Continue clonazepam and Paxil. Hyperlipidemia-- Continue pravastatin. Patient will likely require inpatient rehabilitation. Level of Care Med/Surg Advanced Directives Existing Advance Directive: No Existing Living Will: No Existing Power of Voice Network Engineer: No Resuscitation Status DO NOT RESUSCITATE VTE Prophylaxis VTE Risk Assessment Done? Y/N: Yes Risk Level: Moderate Given or contraindicated: T.E.D. Stockings, SCD's Social Service Consult >80 yr.& Lives Alone
[2016-12-13] MEDS ORDERED: HydrALAZINE HCL 20 MG/ML VIAL IV. PRN (20:45)
[2016-12-13] MEDS ORDERED: ACETAMINOPHEN IV 100 ML IV PRN (20:45)
[2016-12-13] MEDS ORDERED: DOCUSATE SODIUM/SENNA 50/8.6MG TAB PO SCH (21:00)
[2016-12-13] MEDS ORDERED: DOCUSATE SODIUM/SENNA 50/8.6MG TAB PO PRN (21:00)
[2016-12-13 21:15] VITALS: BP 177/72; PULSE 66; TEMP 36.8; O2SAT 91
[2016-12-13 21:45] VITALS: BP 177/72; PULSE 66
[2016-12-13] MEDS: CLONAZEPAM 0.5 MG TAB PO SCH (21:45)
[2016-12-13] MEDS: PAROXETINE 20 MG TAB PO SCH (21:45)
[2016-12-13] MEDS: GABAPENTIN 100 MG CAP PO SCH (21:45)
[2016-12-13] MEDS: PRAVASTATIN SOD 40 MG TAB PO SCH (21:46)
[2016-12-13] MEDS: BUDESONIDE/FORMOTEROL FUMARATE 160/4.5 60 PUFFS/INHALER INH SCH (21:46)
--- NOTE | 2016-12-13 21:59 | DIAGNOSTIC IMAGING REPORT ---
PELVIS/LEFT HIP MRI HISTORY: Left hip pain. Left hip fx TECHNIQUE: Multiplanar multisequence MRI of the pelvis and left hip were performed without the use of intravenous contrast. COMPARISON STUDY: Left hip CT 12/13/2016. FINDINGS: There is evidence for a right total hip arthroplasty. There is a left femoral intramedullary tim with an interlocking femoral neck pin. This results in near nondiagnostic evaluation of the left femur. However, the visualized portions of the left femur appear to be intact. There are no fractures within the left acetabulum to correspond to the CT abnormality. Evidence for prior L4 vertebroplasty. No significant hip effusion. Thickening and edema within the distal left gluteus medius tendon. This is consistent with a tendinopathy. Mild subcutaneous edema within the gluteal region. Small focus of fluid within the subcutaneous fat of the left lateral hip which measures 2.1 x 1.0 cm. This may represent an old seroma/hematoma. IMPRESSION: 1. No acute fracture or dislocation within the pelvis or left hip. Specifically, no fracture within the left acetabulum to correspond to the CT abnormality. 2. Mild thickening and edema at the distal left gluteus medius tendon. This is consistent with a tendinopathy. 3. Small subcutaneous fluid collection within the left lateral hip which may be due to an old postoperative seroma/hematoma. Electronically signed by: Enrrique Bravo M.D. 12/13/2016 9:57 PM Dictated Date/Time: 12/13/2016 9:51 PM
[2016-12-13 22:44] VITALS: BP 177/75; PULSE 78; TEMP 36.6; O2SAT 93
--- NOTE | 2016-12-13 23:35 | EMERGENCY ROOM VISIT NOTE ---
ED Visit Note First contact with patient: 14:48 HPI: Fall on Saturday. Left hip pain. Plan: CT shows Nondisplaced hairline cortical fracture anterior acetabular margin. Admit. Ortho c/s. I reviewed the patient's past medical history, medications, and visit nursing notes. I discussed the case with the physician financial administrative assistant and agree with the findings and plan as documented in the physician assistants note.
[2016-12-14 06:52] LABS: HEMATOCRIT 33.2 % (37-47); MEAN CELL VOLUME 81.8 fL (80-100); MEAN CORPUSCULAR HEMOGLOBIN 26.1 pg (25-34); MEAN CORPUSCULAR HGB CONC 31.9 g/dl (32-36); MEAN PLATELET VOLUME 8.9 fL (7.4-10.4); PLATELET COUNT 246 K/uL (130-400); RED BLOOD COUNT 4.06 M/uL (4.2-5.4); WHITE BLOOD COUNT 5.91 K/uL (4.8-10.8)
[2016-12-14 07:09] VITALS: BP 159/65; PULSE 72; TEMP 37.1; O2SAT 91
[2016-12-14 07:36] LABS: BUN/CREATININE RATIO 16.4 (10-20); CALCIUM 9.1 mg/dl (8.5-10.1); POTASSIUM 3.5 mmol/L (3.5-5.1)
[2016-12-14] MEDS: BUDESONIDE/FORMOTEROL FUMARATE 160/4.5 60 PUFFS/INHALER INH SCH ×2 (08:45→21:00)
[2016-12-14] MEDS: LIDODERM (LIDOCAINE) PATCH 5% TD SCH (08:49)
[2016-12-14] MEDS: GABAPENTIN 100 MG CAP PO SCH ×2 (08:51→21:19)
[2016-12-14] MEDS: CHOLECALCIFEROL 1000 INTER.UNIT TAB PO SCH (08:51)
[2016-12-14] MEDS: FUROSEMIDE 20 MG TAB PO SCH (08:52)
[2016-12-14] MEDS: AMLODIPINE BESYLATE 5 MG TAB PO SCH (08:52)
[2016-12-14] MEDS: OXYBUTYNIN CHLORIDE 5 MG TABCR PO SCH (08:53)
[2016-12-14] MEDS: VALSARTAN 80 MG TAB PO SCH (08:53)
[2016-12-14] MEDS: CLONAZEPAM 0.5 MG TAB PO SCH ×2 (08:58→21:18)
[2016-12-14] MEDS ORDERED: NURSING VERBAL MED ORDER ONE (09:00)
[2016-12-14] MEDS: ACETAMINOPHEN 325 MG TAB PO PRN ×2 (09:00→21:22)
[2016-12-14] MEDS ORDERED: FLUTICASONE PROPIONATE NA SPR 16 GM BTL NAE SCH ×2 (09:00→21:00)
[2016-12-14 15:08] VITALS: BP 124/62; PULSE 63; TEMP 36.3; O2SAT 96
--- NOTE | 2016-12-14 16:50 | Progress Note ---
Subjective Date of Service: Dec 14, 2016. Subjective Patient is here for worsening of her left sided hip pain. Patient denies any new injury as noted in the HPI. Patient reports improvement of her pain while in bed. Patient denies any nausea, vomiting, diarrhea. Problem List Medical Problems: (1) Anemia Status: Acute (2) Anemia Status: Acute (3) COPD exacerbation Status: Acute (4) Dehydration Status: Acute (5) Hip fracture, right Status: Acute (6) Pyelonephritis Status: Acute Review of Systems Constitutional: No fever, No chills Respiratory: No cough, No sputum Cardiac: No chest pain, No orthopnea Abdomen: No pain Musculoskeletal: + joint pain Female : No dysuria, No urinary frequency All Other Systems: Reviewed and Negative Objective Vital Signs Date Time Temp Pulse Resp B/P (MAP) Pulse Ox O2 Delivery O2 Flow Rate FiO2 12/14/16 15:08 36.3 63 18 124/62 (82) 96 Room Air 12/14/16 07:11 Room Air 12/14/16 07:09 37.1 72 17 159/65 (96) 91 Room Air 12/14/16 00:19 Room Air 12/13/16 22:44 36.6 78 18 177/75 (109) 93 Room Air 12/13/16 21:45 66 177/72 (107) 12/13/16 21:15 36.8 66 18 177/72 (107) 91 Room Air 12/13/16 19:55 85 16 197/85 92 12/13/16 19:36 Room Air 12/13/16 17:44 70 18 198/78 Room Air Physical Exam General Appearance: WD/WN, no apparent distress Neck: supple, no adenopathy Respiratory/Chest: chest non-tender, lungs clear Cardiovascular: regular rate, rhythm, no edema, no gallop Abdomen: normal bowel sounds, non tender Extremities: no pedal edema, + pertinent finding (left hip exam: postive log roll test) Skin: normal color Lymphatic: no adenopathy Laboratory Results Last 24 Hours Test 12/14/16 06:21 White Blood Count 5.91 K/uL Red Blood Count 4.06 M/uL Hemoglobin 10.6 g/dL Hematocrit 33.2 % Mean Corpuscular Volume 81.8 fL Mean Corpuscular Hemoglobin 26.1 pg Mean Corpuscular Hemoglobin Concent 31.9 g/dl RDW Standard Deviation 52.9 fL RDW Coefficient of Variation 17.8 % Platelet Count 246 K/uL Mean Platelet Volume 8.9 fL Sodium Level 144 mmol/L Potassium Level 3.5 mmol/L Chloride Level 108 mmol/L Carbon Dioxide Level 27 mmol/L Anion Gap 9.0 mmol/L Blood Urea Nitrogen 16 mg/dl Creatinine 1.00 mg/dl Est Creatinine Clear Calc Drug Dose 41.7 ml/min Estimated GFR () 61.6 Estimated GFR (Non- 53.2 BUN/Creatinine Ratio 16.4 Random Glucose 88 mg/dl Calcium Level 9.1 mg/dl Assessment and Plan Ms. Hughes is an 81 y/o female with PMHx of HTN, COPD, HLD, Vit D Deficiency, Anxiety/Depression, and Multiple Pathological Fx who presents to the ED c/o L hip pain that started 4-5 days ago. Ambulatory Dysfunction: - PT/OT evaluations and social service consultation - Per recommendations from orthopedics - trial of toe touch weightbearing status and non-surgical - Awaiting ORTHO input -Patient currently refusing placement at rehab facility. -This is mainly due to the fact that her sister in [place] is passing. Non-Traumatic Pathologic Fx - Likely 2/2 Osteoporosis: - Recent L hip fx repair August 2016 - no presents with non-displaced hairline cortical fx of anterior acetabular margin - Tylenol 1000 mg IV PRN and Dilaudid 0.25 mg Q3H PRN; Lidoderm patch - Vitamin D 1000 IU daily COPD without Exacerbation: - Ventolin 2 puffs Q4H PRN, Symbicort 2 puffs BID HTN: Uncontrolled - May be pain response - anxiety/stress - Norvasc 10 mg daily (may be cause of worsening lower extremity edema) - Atenolol 100 mg daily, Lasix 20 mg daily, and Valsartan 160 mg daily Anxiety/Depression: - Clonazepam 0.5 mg BID and Paxil 40 mg daily HLD: - Pravastatin 40 mg daily DVT Prophylaxis: SCDs Code Status: DO NOT RESUSCITATE Disposition: - Pain management and PT/OT evaluations - likely need placement; however patient at this time is refusing placement -awaiting ortho input Continued [facility] stay due to: home environment unsafe for pt Discharge planning: uncertain
[2016-12-14] MEDS: PAROXETINE 20 MG TAB PO SCH (21:19)
[2016-12-14] MEDS: PRAVASTATIN SOD 40 MG TAB PO SCH (21:20)
[2016-12-14 22:51] VITALS: BP 117/45; PULSE 64; TEMP 37; O2SAT 93
--- NOTE | 2016-12-14 23:55 | ORTHOPEDIC CONSULTATION ---
DATE OF CONSULTATION: 12/14/2016 HISTORY OF PRESENT ILLNESS: This is an 81-year-old female seen at the request of Dr. Daniels and Dr. Hansen for acute onset left hip pain. Apparently, the patient has had no episodes of any new falls; however, this past weekend she noticed sudden onset of left hip and groin pain. She admits to having been ambulatory in her home in [place] and she had been using her normal pathway up the basement steps once or possibly twice per day and never noted any particular pain during the episode of climbing stairs but then developed severe pain which necessitated a trip to [place] ER, was then discharged with ibuprofen and a muscle relaxer. She had evaluation in the Emergency Department here at [facility] on 12/13/2016 with radiographs, CT scan and eventually an MRI. The patient was admitted to the hospital for further care and management. Now, the patient states that her left hip pain is somewhat improved while being nonweightbearing in her hospital bed and has had certainly no increase in her pain. She did have left hip ORIF which I had performed for her earlier this year and she had a prior right total hip arthroplasty performed by Dr. Lindsay last year due to a fall. She denies any current fevers or chills, dizziness, chest pain, shortness of breath, abdominal pain, dysuria, hematuria, constipation, diarrhea. PAST MEDICAL HISTORY: Arthritis, compression fracture of the vertebra, hypertension, history of falls, COPD, hyperlipidemia, vitamin D deficiency, anxiety and depression. PAST SURGICAL HISTORY: Multiple back surgeries, right total hip arthroplasty [place] [address] Lindsay, ORIF left hip fracture 08/[address] Shah. ALLERGIES: CANTALOUPE, PEACH, STRAWBERRY, BROCCOLI, CAULIFLOWER, NSAIDS, PENICILLINS, MORPHINE, PSEUDOEPHEDRINE. MEDICATIONS: Please note the list of medications provided in the medical record. SOCIAL HISTORY: The patient continues to smoke cigarettes. Denies smokeless tobacco. Denies alcohol and drug use. She is . She is retired. She lives at home alone in her home in [place]. PHYSICAL EXAMINATION: GENERAL: An 81-year-old female who is lying supine on her hospital room bed. Her daughter is present at bedside with a nurse. She is alert and oriented x3. Speech clear and fluent. Affect is appropriate. EXTREMITIES: Examination of the left hip demonstrates skin well healed from previous surgical incisions. No erythema, no redness, no swelling, no skin lesions. She has minimal groin tenderness in the anterior hip joint capsule. No tenderness over the greater trochanter or the iliotibial band. She has some discomfort with active and passive range of motion of the left hip, radiating from the left groin region. She does have some discomfort with intermittent motion; however, it is inconsistent and she is able to straight leg raise on the left without difficulty. Dorsalis pedis and posterior pulses 2/4 bilateral lower extremities. RADIOGRAPHS: CT scans and MRI reviewed, demonstrating well-fixed, well-placed troch nail in the left and total hip arthroplasty on the right. No evidence of acute fracture. Osteoarthritis is noted. IMPRESSION: 1. Left hip flexor strain. 2. Mild hip arthritis. 3. Left hip pain. 4. Ambulatory dysfunction secondary to above. RECOMMENDATION: For evaluation from physical therapy with treatment, evaluation by occupational therapy with treatment, evaluation by social work program coordinator for discharge planning. She may be a candidate for a rehab facility versus a nursing facility with physical therapy services. She may follow up in the office as necessary. Thank you for the opportunity to consult in the care of this patient.
[2016-12-15 06:13] LABS: HEMATOCRIT 30.8 % (37-47); MEAN CELL VOLUME 82.6 fL (80-100); MEAN CORPUSCULAR HGB CONC 31.5 g/dl (32-36); PLATELET COUNT 218 K/uL (130-400); RED BLOOD COUNT 3.73 M/uL (4.2-5.4); WHITE BLOOD COUNT 5.42 K/uL (4.8-10.8)
[2016-12-15 06:29] LABS: BUN/CREATININE RATIO 19.4 (10-20); CREATININE 1.4 mg/dl (0.60-1.20); POTASSIUM 3.8 mmol/L (3.5-5.1)
[2016-12-15 07:01] VITALS: BP 141/62; PULSE 69; TEMP 37; O2SAT 88
[2016-12-15 07:03] VITALS: O2SAT 93
[2016-12-15] MEDS: LIDODERM (LIDOCAINE) PATCH 5% TD SCH (09:00)
[2016-12-15 10:32] VITALS: BP 148/61; PULSE 64
[2016-12-15] MEDS: BUDESONIDE/FORMOTEROL FUMARATE 160/4.5 60 PUFFS/INHALER INH SCH (10:34)
[2016-12-15] MEDS: AMLODIPINE BESYLATE 5 MG TAB PO SCH (10:35)
[2016-12-15] MEDS: OXYBUTYNIN CHLORIDE 5 MG TABCR PO SCH (10:35)
[2016-12-15] MEDS: VALSARTAN 80 MG TAB PO SCH (10:35)
[2016-12-15] MEDS: CHOLECALCIFEROL 1000 INTER.UNIT TAB PO SCH (10:36)
[2016-12-15] MEDS: GABAPENTIN 100 MG CAP PO SCH (10:36)
[2016-12-15] MEDS: FUROSEMIDE 20 MG TAB PO SCH (10:36)
[2016-12-15] MEDS: CLONAZEPAM 0.5 MG TAB PO SCH (10:38)
[2016-12-15 11:27] VITALS: BP 148/61; PULSE 64; O2SAT 93
--- NOTE | 2016-12-15 13:26 | Orthopedic Progress Note ---
Orthopedic Progress Note Date of Service Dec 15, 2016. Subjective Reports: feeling well, Denies: chest pain, SOB, nausea / vomiting, light headedness, calf pain Additional Notes: Left hip pain improved today. Did well with therapy. Eager for D/C. Objective calves soft nontender, N/V intact, hip located, capillary refill less than 2 sec., A&O x3, toes mobile Diminished left groin tenderness and irritability with AROM and PROM. Negative heel strike and logroll test. DNVSI Date Time Temp Pulse Resp B/P (MAP) Pulse Ox O2 Delivery O2 Flow Rate FiO2 12/15/16 11:27 64 93 12/15/16 10:32 64 148/61 (90) 12/15/16 07:03 93 Nasal Cannula 2.0 12/15/16 07:01 37.0 69 17 141/62 (88) 88 Room Air 12/14/16 23:57 Room Air 12/14/16 22:51 37.0 64 18 117/45 (69) 93 Room Air 12/14/16 17:15 Room Air 12/14/16 15:08 36.3 63 18 124/62 (82) 96 Room Air Laboratory Results 24 Hours: Test 12/15/16 05:39 Hematocrit 30.8 % Hemoglobin 9.7 g/dL Assessment & Plan Assessment: Left hip flexor strain Left hip mild OA Left hip pain Plan: WBAT L LE Cont PT/OT and home exercises F/U with Dr Shah in office as needed
[2016-12-15 15:40] VITALS: BP 118/63; PULSE 61; TEMP 36.4; O2SAT 90
--- NOTE | 2016-12-15 16:16 | Discharge Instructions ---
Discharge Instructions Date of Service Dec 15, 2016. Admission Reason for Admission: Hip Fracture Discharge Discharge Diagnosis / Problem: Left Hip Flexor strain; Left Hip OA Discharge Goals Goal(s): Decrease discomfort, Improve function Activity Recommendations Activity Limitations: as noted below Lifting Limitations: gradually increase as tolerated Exercise/Sports Limitations: gradually increase as tolerated Shower/Bathe: no limitations Driving or Machine Use: no limitations . Instructions / Follow-Up Instructions / Follow-Up F/U with Dr Shah in office as needed Recommend Physical therapy. F/U [facility] PCP in 1 week. Current Hospital Diet Patient's current hospital diet: AHA Diet (Heart Healthy) Discharge Diet Recommended Diet: AHA Diet (Heart Healthy) Pending Studies Studies pending at discharge: no Medical Emergencies . Who to Call and When: Medical Emergencies: If at any time you feel your situation is an emergency, please call 911 immediately. . Non-Emergent Contact Non-Emergency issues call your: Primary Care Provider Call Non-Emergent contact if: your pain is not controlled . . "Provider Documentation" section prepared by Derian Cui. . Supervisor Real Estate Office Recommendations Supervisor Real Estate Office Recommendations: Continue with physical therapy while at home VTE Core Measure Inpt VTE Proph given/why not?: Liam Stockings, SCD's
--- NOTE | 2016-12-15 16:18 | Discharge Summary ---
Discharge Summary Date of Service Dec 15, 2016. Discharge Summary Admission Date: Dec 13, 2016 at 19:28 Immunizations: Have You Had Influenza Vaccine: Yes Influenza Vaccine Date: Jan 13, 2007 History of Tetanus Vaccine?: YES- UNCERTAIN OF DATE History of Pneumococcal: No History of Hepatitis B Vaccine: No Hospital Course Ms. Hughes is an 81 y/o female with PMHx of HTN, COPD, HLD, Vit D Deficiency, Anxiety/Depression, and Multiple Pathological Fx who presents to the ED c/o L hip pain that started 4-5 days ago. Ambulatory Dysfunction: - PT/OT evaluations and social service consultation - Per recommendations from orthopedics - trial of toe touch weightbearing status and non-surgical - Awaiting ORTHO input -Patient currently refusing placement at rehab facility. -This is mainly due to the fact that her sister in [place] is passing. Non-Traumatic Pathologic Fx - Likely 2/2 Osteoporosis: - Recent L hip fx repair August 2016 - no presents with non-displaced hairline cortical fx of anterior acetabular margin - Tylenol 1000 mg IV PRN and Dilaudid 0.25 mg Q3H PRN; Lidoderm patch - Vitamin D 1000 IU daily COPD without Exacerbation: - Ventolin 2 puffs Q4H PRN, Symbicort 2 puffs BID HTN: Uncontrolled - May be pain response - anxiety/stress - Norvasc 10 mg daily (may be cause of worsening lower extremity edema) - Atenolol 100 mg daily, Lasix 20 mg daily, and Valsartan 160 mg daily Anxiety/Depression: - Clonazepam 0.5 mg BID and Paxil 40 mg daily HLD: - Pravastatin 40 mg daily DVT Prophylaxis: SCDs Code Status: DO NOT RESUSCITATE Disposition: - Pain management and PT/OT evaluations - likely need placement; however patient at this time is refusing placement -awaiting ortho input This includes examination of the patient, discharge planning, medication reconciliation, and communication with other providers. Discharge Instructions Please refer to the electronic Patient Visit Report (Discharge Instructions) for additional information.
[2016-12-15 16:38] VITALS: BP 118/63; PULSE 61; TEMP 36.4; O2SAT 90
== END 2016-12-15 17:50 | disposition home or self-care (01) | DRG 537 ==
LOC: C.EDB 14:27 → C.MSW 19:28 → ENRESERV 19:41
PROVIDERS: ADMIT Hospitalist; ATTEND Hospitalist
DX: S73.192A Other sprain of left hip, initial encounter (principal); M80.052A Age-related osteoporosis with current pathological fracture, left femur, initial encounter for fracture; M16.11 Unilateral primary osteoarthritis, right hip; I10 Essential (primary) hypertension; F17.200 Nicotine dependence, unspecified, uncomplicated; D64.9 Anemia, unspecified; J44.9 Chronic obstructive pulmonary disease, unspecified; E78.5 Hyperlipidemia, unspecified; E86.0 Dehydration; E55.9 Vitamin D deficiency, unspecified; F41.8 Other specified anxiety disorders; M48.50XS Collapsed vertebra, not elsewhere classified, site unspecified, sequela of fracture; Z88.0 Allergy status to penicillin; Z66 Do not resuscitate; Z96.641 Presence of right artificial hip joint; X58.XXXS Exposure to other specified factors, sequela; Y92.009 Unspecified place in unspecified non-institutional (private) residence as the place of occurrence of the external cause

== ENCOUNTER 2018-07-31 19:59 | Inpatient (IN) ==
--- OUTSIDE RECORDS SUMMARY | 2018-07-31 20:02 | External Medical Summary | Continuity of Care Document ---
:1935 Author Name Denise Jenkins, Provider Address Unavailable Unavailable , Care Team Providers Name Role Phone Unavailable Unavailable Unavailable Problems Active medical history not documented Allergies and Adverse Reactions Allergy history not documented Medications Medications not documented Procedures Procedures not documented Immunizations Immunizations not documented Plan of Treatment Planned Observations Planned Goals not documented Results No Known Results Results not documented
[2018-07-31] MEDS ORDERED: HYDROmorphone INJ 1 MG/ML SYRINGE IV STA (20:23)
[2018-07-31 20:53] LABS: Basophils # (auto) 0.04 K/uL (0-0.2); Basophils % (auto) 0.5 %; Eosinophils # (auto) 0.14 K/uL (0-0.5); Eosinophils % (auto) 1.8 %; Hematocrit (blood only) 39.5 % (37-47); Hemoglobin 13.3 g/dL (12.0-16.0); Immature Granulocytes # (auto) 0.03 K/uL (0.00-0.02); Immature Granulocytes % (auto) 0.4 %; Lymphocytes # (auto) 1.09 K/uL (1.2-3.4); Lymphocytes % (auto) 14.3 %; Mean Corpuscular Hgb Conc 33.7 g/dL (32-36); Mean Corpuscular Volume 87.2 fL (80-100); Mean Platelet Volume 10.2 fL (7.4-10.4); Monocytes % (auto) 11.8 %; Neutrophils # (auto) 5.41 K/uL (1.4-6.5); Neutrophils % (auto) 71.2 %; Platelet Count 235 K/uL (130-400); RDW Coefficient of Variation 15.6 % (11.5-14.5); RDW Standard Deviation 50.1 fL (36.4-46.3); Red Blood Count 4.53 M/uL (4.2-5.4); White Blood Count 7.61 K/uL (4.8-10.8)
[2018-07-31 21:19] LABS: Albumin Level 3.4 gm/dl (3.4-5.0); BUN Creatinine Ratio 17.5 (10-20); Calcium 9.2 mg/dl (8.5-10.1); Creatinine Clr Calc Pharmacy 21.5 ml/min; Est GFR (African American) 32.7; Est GFR (Non-African American) 28.2; Potassium 3.2 mmol/L (3.5-5.1)
[2018-07-31 21:22] LABS: Albumin Globulin Ratio 0.9 (0.9-2); Bilirubin,Total 0.5 mg/dl (0.2-1); Globulin 3.8 gm/dl (2.5-4.0); Total Protein 7.2 gm/dl (6.4-8.2)
--- NOTE | 2018-07-31 21:35 | CT Scan Report ---
LUMBAR SPINE CT CT DOSE: 568.39 mGy.cm HISTORY: severe lower back pain TECHNIQUE: Multiaxial CT images of the lumbar spine were performed and reformatted in the sagittal an d coronal plane without the use of contrast. A dose lowering technique was utilized adhering to the principles of ALARA. COMPARISON: Lumbar spine CT 09/06/2015. FINDINGS: The bones are osteopenic. No subluxation. Old compression fractures throughout the lumbar s pine remain unchanged. There are vertebral plasties at L1, L2, and L3. No acute fractures identified within the lumbar spine. Moderate facet degenerative changes seen throughout the lumbar spine. Mild d isc space narrowing at L1-L2 and L2-L3. Multiple bilateral renal hypodense lesions. These remain unch anged and favor cysts. Moderate to severe central canal narrowing most pronounced at the L3-L4 and L4 -L5 levels due to the disc bulges and facet hypertrophy. This is also unchanged. IMPRESSION: 1. No acute fractures within the lumbar spine. 2. Multiple old compression fractures with prior vertebroplasty again noted. This remains unchanged. 3. Moderate to severe central canal narrowing throughout the lumbar spine which is also unchanged. Electronically signed by: Enrrique Bravo M.D. 07/31/2018 9:34 PM
[2018-07-31] MEDS ORDERED: HYDROmorphone INJ 0.5 MG/0.5 ML SYR IV STA (22:28)
--- NOTE | 2018-08-01 00:35 | History & Physical Report ---
Date of Service August 01, 2018 Assessment & Plan (1) Lumbar back pain with radiculopathy affecting left lower extremity: 83-year-old female was admitted on 01 Aug 2018 for acute on chronic low back pain. Lumbar back pain, constipation: Increased baseline pain for past two months, much more noticeable over past three days, with primary radiation into the left leg. No reported concurrent falls or local trauma. She has a history of multiple lumbar surgeries by Dr. Dow of orthopedics about 15 years ago. Supposedly had an MRI about two months ago that showed a new L4 compression fracture. Over past three days, no reported changes in bowel incontinence or bladder habits, saddle anesthesia, or bilateral leg weakness. Some decreased p.o. intake and constipation due to the pain. - On arrival, afebrile, not tachycardic, moderately hypertensive, with an SpO2 first of 87% but later 98% on room air. No blood leukocytosis. CT of the lumbar spine notes no acute fractures, multiple old compression fractures, history of vertebroplasty that appears unchanged, and moderate to severe central canal narrowing which is unchanged. - In the ED was treated with Dilaudid 1.5 mg total. - Ordered a lumbar MRI. Will continue pain control with dilaudid prn. Consult orthopedics and pain management. Start Colace as stool softener. Hypokalemia: Admit K 3.2. Will replace, recheck in a.m. Elevated creatinine: Admit Cr 1.67, with comparison in November 2016 being normal. BUN 29. UA clear. Some decreased p.o. intake recently due to pain. - We will hold her home Lasix and gabapentin for now. Start small amount of maintenance IVF. Recheck in a.m. Ongoing medical issues: - Hypertension, history of NSTEMI: Continue home amlodipine, atenolol, Lasix, losartan, pravastatin. - Anemia: Mentioned in her medical record. Admit Hb 17.8, likely some hemoconcentration. - COPD: Is not on home oxygen at baseline. Continue home albuterol, Symbicort. --- She did have some mild wheezing in the ED, so we will treat with DuoNeb. Supplemental oxygen to keep SpO2 over 90%. - Depression/anxiety: Continue home Klonopin, Paxil. - Urinary incontinence: Continue home Ditropan. Code status: Full code. Diet: NPO. DVT prophy: SCDs acutely prior to ortho eval. PT/OT: Ordered. Disbo: Admit to MedSurg. (2) Constipation: (3) Hypokalemia: (4) Elevated serum creatinine: (5) Hypertension: (6) History of [place] (myocardial infarction): (7) COPD (chronic obstructive pulmonary disease): (8) Depression: (9) Anxiety: (10) Urinary incontinence: History of Present Illness Primary Care Provider: Mani Jimenez DO 83-year-old female presents with her daughter to the emergency department complaining of acute on chronic low back pain. Both patient and daughter mutually give the history. By report, patient has had multiple back surgeries by Dr. Dow about 15 years ago. She has lived with some level of chronic pain since that time but has noted over the past couple months that it has been worsening. An MRI at [facility] a couple months ago apparently showed a new L4 compression fracture but it is unclear if this was followed up medically. Over the past three days the patient has noticed more severe pain that comes in waves with any movement, improved with rest. Has noted some radiating symptoms and mild weakness in her left leg as well. Denies acute right leg symptoms, changes in her bowel or bladder habits, or numbness around her bottom. She has had some constipation and decreased p.o. intake over the past three days as well. No known falls or trauma in this recent time. Otherwise denies any chest pain, shortness of breath, abdominal pain, or other acute concerns. She does note she has been smoking for multiple decades now and has ongoing baseline wheezing. She does not use oxygen at home for her COPD. --- Past medical history includes anemia, COPD, left femoral neck fracture, right tibial plateau fracture, pyelonephritis, aspiration pneumonia, hypertension, anxiety, urinary incontinence, osteoporosis and compression fractures --- Past surgical history includes left hip intertrochanteric nailing, right hip replacement, vertebroplasty, tonsillectomy, hysterectomy, cholecystectomy --- Social history includes continued smoking since her teens. Denies alcohol use. , lives independently but has her daughter nearby. Allergies Allergy/AdvReac Type Severity Reaction Status Date / Time peach Allergy Mild Unknown Verified 07/31/18 20:57 strawberry Allergy Mild Unknown Verified 07/31/18 20:57 broccoli Allergy Unknown HIVES/SWELL Verified 08/01/18 15:18 ING cauliflower Allergy Unknown HIVES Verified 08/01/18 15:18 melon Allergy Unknown Unknown Verified 08/01/18 15:16 NSAIDS (Non-Steroidal Allergy Unknown unk Verified 07/31/18 20:57 Anti-Inflamma Penicillins Allergy Unknown Unknown Verified 07/31/18 20:57 morphine AdvReac Unknown PT DOESNT Unverified 07/31/18 20:57 TOLERATE pseudoephedrine AdvReac Unknown epistaxis Verified 07/31/18 20:57 Home Medications Home Medications Medication Instructions Recorded Confirmed Type albuterol sulfate [Ventolin HFA] 2 puff INHALATION Q4 PRN 07/31/18 07/31/18 History amlodipine [Norvasc] 10 mg PO QAM 07/31/18 07/31/18 History atenolol [Tenormin] 100 mg PO DAILY 07/31/18 07/31/18 History budesonide-formoterol [Symbicort] 2 puff INHALATION QAM 07/31/18 07/31/18 History cholecalciferol (vitamin D3) 1,000 unit PO DAILY 07/31/18 07/31/18 History [Vitamin D3] clonazepam [Klonopin] 0.5 mg PO BID 07/31/18 07/31/18 History clotrimazole-betamethasone 1 applic TOPICAL BID PRN 07/31/18 07/31/18 History [Lotrisone] furosemide [Lasix] 20 mg PO BID 07/31/18 07/31/18 History gabapentin [Neurontin] 100 mg PO BID 07/31/18 07/31/18 History losartan [Cozaar] 50 mg PO BID 07/31/18 07/31/18 History oxybutynin chloride [Ditropan XL] 5 mg PO QAM 07/31/18 07/31/18 History paroxetine HCl [Paxil] 40 mg PO QPM 07/31/18 07/31/18 History pravastatin [Pravachol] 40 mg PO QPM 07/31/18 07/31/18 History Past Med/Surg History Medical History Acute exacerbation of chronic low back pain COPD (chronic obstructive pulmonary disease) (Chronic) Cataract (lens) fragments in eye following cataract surgery, bilateral (Chronic) Osteoarth NOS-ankle (Chronic) Depression (Chronic) Urinary incontinence (Chronic) Anxiety (Chronic) Depression (Chronic) COPD (chronic obstructive pulmonary disease) (Chronic) History of [place] (myocardial infarction) (Chronic) Elevated serum creatinine (Chronic) Hypokalemia (Chronic) Constipation (Chronic) Lumbar back pain with radiculopathy affecting left lower extremity (Chronic) Back pain (Chronic) Spinal stenosis (Chronic) Moderate to severe-5 Arthritis (Chronic) Compression fracture of vertebra (Chronic) Acute/subacute L3 and L4 July 2018 Hypertension (Chronic) Hip fracture (Chronic) Left hip pain (Chronic) UTI (urinary tract infection) (Chronic) Weakness (Chronic) Surgical History History of kyphoplasty (Resolved) T11, T12, L1, L2 and L4 levels Post-operative state (Chronic) Family History Other No pertinent family history Social History Preferred Language: [place] Communication Ability: Effective 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 Beliefs That Will Affect Care: None Current Living Situation: Alone Other Information That Helps Us Care for You: No Feels Safe at Home: Yes Safety Concerns: Feels Safe At This Time Smoking Status: Current every day smoker Tobacco Type: cigarettes Cigarettes Per Day: 1/2 pack Tobacco Cessation Education Requested by Patient: No Hx Alcohol Use: No Hx Substance Use: No Review of Systems Review of Systems: Constitutional: Denies fevers, chills, focal weakness Eyes: Denies any visual loss or diplopia ENT: Denies any ear/nose/throat pain or difficulty speaking or swallowing Respiratory: Denies any new dyspnea open (but ongoing wheezing), cough, hemoptysis. Cardiovascular: Denies any chest pain or feeling of edema Gastrointestinal: Denies any abdominal pain, nausea/vomiting/diarrhea Musculoskeletal: Denies any acute extremity pains, myalgias. Mild left leg weakness. Skin: Denies any known acute rashes or lesions Neuro: Denies any headache, difficulties with speech or swallow. Does note some left leg weakness and pain with movement. Concurrent chronic lumbar pain, worse with movement. Psych: Notes generalized depression since the passing of her about 4 years ago. Physical Exam Physical Exam: GENERAL: Awake, alert, rather well-appearing, appears in mild level of baseline pain and at times has sharp excruciating pains. Overall does not appear in immediate distress. HENT: Normocephalic, atraumatic. Oropharynx dry. EYES: Normal conjunctiva. Sclera non-icteric. NECK: Inspection normal. Supple and full ROM. No nuchal rigidity. CARDIAC: +S1S2 RRR, no murmurs. RESPIRATORY: Mild expiratory wheezing throughout. Normal respiratory effort. GI: +BS, soft, non-distended. No tenderness to palpation. No rebound or guarding. No appreciable masses. EXTREMITIES: No pedal edema or calf tenderness. Mild decreased strength throughout the left leg but can still lift and do plantar flexion, though very slowly. Distal sensation equal and intact in bilateral extremities. Results & Data Vital Signs (Past 12 Hours) Vital Signs Temp Pulse Pulse Resp BP BP Pulse Ox 08/01/18 00:24 65 18 139/64 94 07/31/18 22:36 67 18 141/63 H 98 07/31/18 21:39 67 18 139/62 98 07/31/18 20:48 87 L 07/31/18 20:45 70 18 171/77 H 07/31/18 20:38 92 07/31/18 20:01 36.4 C L 68 18 169/68 H 94 Laboratory Results Laboratory Results WBC 7.61 K/uL (4.8-10.8) 07/31/18 20:31 RBC 4.53 M/uL (4.2-5.4) 07/31/18 20:31 Hgb 13.3 g/dL (12.0-16.0) 07/31/18 20:31 Hct 39.5 % (37-47) 07/31/18 20:31 MCV 87.2 fL (80-100) 07/31/18 20:31 MCH 29.4 pg (25-34) 07/31/18 20:31 MCHC 33.7 g/dL (32-36) 07/31/18 20:31 RDW Std Deviation 50.1 fL (36.4-46.3) H 07/31/18 20:31 RDW Coeff of Digna 15.6 % (11.5-14.5) H 07/31/18 20:31 Plt Count 235 K/uL (130-400) 07/31/18 20:31 MPV 10.2 fL (7.4-10.4) 07/31/18 20:31 Immature Gran % (Auto) 0.4 % 07/31/18 20:31 Neut % (Auto) 71.2 % 07/31/18 20:31 Lymph % (Auto) 14.3 % 07/31/18 20:31 [place] % (Auto) 11.8 % 07/31/18 20:31 Eos % (Auto) 1.8 % 07/31/18 20:31 Baso % (Auto) 0.5 % 07/31/18 20:31 Immature Gran # (Auto) 0.03 K/uL (0.00-0.02) H 07/31/18 20:31 Neut # (Auto) 5.41 K/uL (1.4-6.5) 07/31/18 20:31 Lymph # (Auto) 1.09 K/uL (1.2-3.4) L 07/31/18 20:31 [place] # (Auto) 0.90 K/uL (0.11-0.59) H 07/31/18 20:31 Eos # (Auto) 0.14 K/uL (0-0.5) 07/31/18 20:31 Baso # (Auto) 0.04 K/uL (0-0.2) 07/31/18 20:31 Sodium 141 mmol/L (136-145) 07/31/18 20:31 Potassium 3.2 mmol/L (3.5-5.1) L 07/31/18 20:31 Chloride 106 mmol/L (98-107) 07/31/18 20:31 Carbon Dioxide 29 mmol/L (21-32) 07/31/18 20:31 6.0 (3-11) 07/31/18 20:31 BUN 29 mg/dl (7-18) H 07/31/18 20:31 1.67 mg/dl (0.6-1.2) H 07/31/18 20:31 Est Cr Clr Drug Dosing 21.5 ml/min 07/31/18 20:31 Est GFR ( Amer) 32.7 07/31/18 20:31 Est GFR (Non-Af Amer) 28.2 07/31/18 20:31 17.5 (10-20) 07/31/18 20:31 Glucose 112 mg/dl (70-99) H 07/31/18 20:31 Calcium 9.2 mg/dl (8.5-10.1) 07/31/18 20:31 0.5 mg/dl (0.2-1) 07/31/18 20:31 AST 16 U/L (15-37) 07/31/18 20:31 ALT 18 U/L (12-78) 07/31/18 20:31 100 U/L (45-117) 07/31/18 20:31 7.2 gm/dl (6.4-8.2) 07/31/18 20:31 3.4 gm/dl (3.4-5.0) 07/31/18 20:31 3.8 gm/dl (2.5-4.0) 07/31/18 20:31 0.9 (0.9-2) 07/31/18 20:31 165 U/L (73-393) 07/31/18 20:31 Medications Administered Discontinued Medications Hydromorphone HCl (Dilaudid) 1 mg IV NOW STA Stop: 07/31/18 20:24 Last Admin: 07/31/18 20:44 Dose: 1 mg Documented by: [id number] Hydromorphone HCl (Dilaudid) 0.5 mg IV NOW STA Stop: 07/31/18 22:29 Last Admin: 07/31/18 22:35 Dose: 0.5 mg Documented by: [id number] Code Status & VTE Plan Code Status Full code VTE Prophylaxis Plan VTE Prophylaxis will be ordered: Yes Supervising Physician Co-Signing Physician Notes Attending addendum: I have physically seen this patient, have supervised the medical residents activities, and agree with the H&P unless as otherwise noted. Assessment and Plan: Acute L3 compression fracture with 50% height loss/central canal spinal stenosis/intractable back pain- Admit to nonmonitored bed. History of multiple lumbar surgeries by Dr. Dow about [address] Dow regarding possible kyphoplasty. Consult pain management regarding pain control. Dilaudid 0.5 mg IV every 3 hours as needed severe pain. acetaminophen 1 g IV every 8 hours PRN mild pain or temperature. Hold on IV steroids at this time. Acute kidney injury- Creatinine 1.67 upon admission Hold Lasix. Gentle IV fluids. Repeat laboratories in a.m. Remainder of orders notations as noted Resident Activity Tracking Resident Involvement: Resident Care Provided Care Provided: [facility]
[2018-08-01] MEDS ORDERED: LORazepam 0.5 MG/1 ML VIAL IV STA (00:36)
--- NOTE | 2018-08-01 00:37 | Emergency Department Note ---
Entered by Ton Mauro acting as a scribe for Jone Samano DO History of Present Illness General Chief complaint: Back Injury/Pain Stated complaint: BACK PAIN, HX L4 COMPRESSION FX Source: patient History of Present Illness Onset (ago): day(s) 3 Location: back Pain Consistency: + other (worsening) Maximum Pain Intensity: 10 Exacerbated By: + movement Associated symptoms: + other (Positive for lower back numbness.) Treatments prior to arrival: other (Tylenol) The patient is an 83 year old female who presents to the emergency department with complaints of worsening back pain beginning 3 days ago. The patient states that she has a history of an L4 compression fracture from 2 months ago. She notes that she has been having lower back pain for the last two months, but she reports that her pain has worsened over the last three days. The patient states that her pain goes all the way down her legs and is worse in the left leg. She notes that the back and front of her legs hurt. She reports that her pain worsens with movement. She also complains of lower back numbness. The patient states that she has not had a bowel movement within the last 2-3 days. She notes that she has been taking Tylenol with no relief of her pain. The patient denies any recent trauma/fall. Home Medications Home Medications Medication Instructions Recorded Confirmed Type albuterol sulfate [Ventolin HFA] 2 puff INHALATION Q4 PRN 07/31/18 07/31/18 History amlodipine [Norvasc] 10 mg PO QAM 07/31/18 07/31/18 History atenolol [Tenormin] 100 mg PO DAILY 07/31/18 07/31/18 History budesonide-formoterol [Symbicort] 2 puff INHALATION QAM 07/31/18 07/31/18 History cholecalciferol (vitamin D3) 1,000 unit PO DAILY 07/31/18 07/31/18 History [Vitamin D3] clonazepam [Klonopin] 0.5 mg PO BID 07/31/18 07/31/18 History clotrimazole-betamethasone 1 applic TOPICAL BID PRN 07/31/18 07/31/18 History [Lotrisone] furosemide [Lasix] 20 mg PO BID 07/31/18 07/31/18 History gabapentin [Neurontin] 100 mg PO BID 07/31/18 07/31/18 History losartan [Cozaar] 50 mg PO BID 07/31/18 07/31/18 History oxybutynin chloride [Ditropan XL] 5 mg PO QAM 07/31/18 07/31/18 History paroxetine HCl [Paxil] 40 mg PO QPM 07/31/18 07/31/18 History pravastatin [Pravachol] 40 mg PO QPM 07/31/18 07/31/18 History Allergies Allergy/AdvReac Type Severity Reaction Status Date / Time peach Allergy Mild Unknown Verified 07/31/18 20:57 strawberry Allergy Mild Unknown Verified 07/31/18 20:57 broccoli Allergy Unknown HIVES/SWELL Unverified 07/31/18 20:57 ING cauliflower Allergy Unknown HIVES Unverified 07/31/18 20:57 NSAIDS (Non-Steroidal Allergy Unknown unk Verified 07/31/18 20:57 Anti-Inflamma Penicillins Allergy Unknown Unknown Verified 07/31/18 20:57 morphine AdvReac Unknown PT DOESNT Unverified 07/31/18 20:57 TOLERATE pseudoephedrine AdvReac Unknown epistaxis Verified 07/31/18 20:57 Cantaloupe Allergy Mild Unknown Uncoded 07/31/18 20:57 Past Med/Surg History Medical History Arthritis (Chronic) Compression fracture of vertebra (Chronic) Hypertension (Chronic) Hip fracture Left hip pain UTI (urinary tract infection) Weakness Surgical History Post-operative state Family History Other No pertinent family history Social History Preferred Language: Serbian Feels Safe at Home: Yes Smoking Status: Current every day smoker Review of Systems See HPI for pertinent positives & negatives. and A total of 10 systems reviewed and were otherwise negative Physical Exam Vital Signs Vital Signs - 24 hr 07/31/18 20:01 07/31/18 20:38 07/31/18 20:45 Temperature 36.4 C L Temperature Source Oral Sepsis Recent Fever Within 48 Hours No Sepsis New/Unexplained Change in Mental Status No Sepsis Action Taken by Nursing No Action Required Pulse Rate 68 Pulse Rate [Apical] 70 Respiratory Rate 18 18 Respiratory Effort / Characteristics Non-Labored Spontaneous Respiratory Depth Normal Respiratory Pattern Regular Blood Pressure 169/68 H Blood Pressure [Left Arm] 171/77 H Blood Pressure Mean 101 Blood Pressure Mean [Left Arm] 108 Blood Pressure Position [Left Arm] Lying Pulse Oximetry 94 92 Oxygen Delivery Method Room Air Room Air Oxygen Flow Rate 07/31/18 20:48 07/31/18 21:39 07/31/18 22:36 Temperature Temperature Source Sepsis Recent Fever Within 48 Hours Sepsis New/Unexplained Change in Mental Status Sepsis Action Taken by Nursing Pulse Rate Pulse Rate [Apical] 67 67 Respiratory Rate 18 18 Respiratory Effort / Characteristics Non-Labored Spontaneous Non-Labored Spontaneous Respiratory Depth Normal Normal Respiratory Pattern Regular Regular Blood Pressure Blood Pressure [Left Arm] 139/62 141/63 H Blood Pressure Mean Blood Pressure Mean [Left Arm] 87 89 Blood Pressure Position [Left Arm] Lying Lying Pulse Oximetry 87 L 98 98 Oxygen Delivery Method Room Air Nasal Cannula Nasal Cannula Room Air Oxygen Flow Rate 0 3 08/01/18 00:24 Temperature Temperature Source Sepsis Recent Fever Within 48 Hours Sepsis New/Unexplained Change in Mental Status Sepsis Action Taken by Nursing Pulse Rate Pulse Rate [Apical] 65 Respiratory Rate 18 Respiratory Effort / Characteristics Non-Labored Spontaneous Respiratory Depth Normal Respiratory Pattern Regular Blood Pressure Blood Pressure [Left Arm] 139/64 Blood Pressure Mean Blood Pressure Mean [Left Arm] 89 Blood Pressure Position [Left Arm] Lying Pulse Oximetry 94 Oxygen Delivery Method Room Air Oxygen Flow Rate GENERAL: Laying in bed, in significant distress, holding lower back. EYE EXAM: normal conjunctiva OROPHARYNX: no exudate, no erythema, lips, buccal mucosa, and tongue normal and mucous membranes are moist NECK: supple, no nuchal rigidity, no adenopathy, non-tender LUNGS: Clear to auscultation. Normal chest wall mechanics HEART: no murmurs, S1 normal and S2 normal ABDOMEN: abdomen soft, non-tender, normo-active bowel sounds, no masses, no rebound or guarding. BACK: Back is symmetrical on inspection and there is no deformity, no midline tenderness, no CVA tenderness. Acute reproducible pain throughout lower lumbar tracking into the bilateral glutes. SKIN: no rashes and no bruising UPPER EXTREMITIES: upper extremities are grossly normal. LOWER EXTREMITIES: No pitting edema. Flexion/extension of hips/knees/ankles and EHL 5/5 on right, poor effort on left secondary to pain with flexion of hip. NEURO EXAM: Normal sensorium, cranial nerves II-XII grossly intact, normal speech, no gross weakness of arms. Course Vital signs were reviewed and showed that the patient was hypertensive. The patients medical record was reviewed The above diagnostic studies were performed and reviewed. ED treatments and interventions as stated above. 2012: The patient was evaluated in room C7. A complete history and physical examination was performed. 2228: I reevaluated and updated the patient. She is not able to sit up. The patient's daughter does not want to take her home. 2339: Upon reevaluation, the patient is stable. I discussed my findings with the patient and she understands and agrees with the treatment plan. Based on the patients age, coexisting illnesses, exam and lab findings the decision to treat as an inpatient was made. The patient remained stable while under my care. I discussed the patient's case with LAURA Beltran. The patient will be evaluated for further management. Consultations Consultation #1: I discussed the patient's case with LAURA Beltran. The patient will be evaluated for further management and treatment. Time: 23:39 Administered Medications Discontinued Medications Hydromorphone HCl (Dilaudid) 1 mg IV NOW STA Stop: 07/31/18 20:24 Last Admin: 07/31/18 20:44 Dose: 1 mg Documented by: [id number] Hydromorphone HCl (Dilaudid) 0.5 mg IV NOW STA Stop: 07/31/18 22:29 Last Admin: 07/31/18 22:35 Dose: 0.5 mg Documented by: [id number] Medical Decision Making Differential Diagnosis Differential diagnosis: Etiologies such as muscular strain, fracture, metastatic disease, disc herniation, sciatica, epidural abscess, vertebral osteomyelitis, discitis, spinal epidural hematoma, cord compression, cauda equina/conus medullaris syndrome, aortic disease, infection, shingles, renal colic, gastrointestinal, acute exacerbation of chronic back pain, as well as others were entertained. Medical Records Attestation: I reviewed the patient's medical records. Home Medications Current Medication List: was personally reviewed by me Laboratory Data Attestation: I reviewed the patient's lab results. Result diagrams: 07/31/18 20:31 07/31/18 20:31 Lab Results 07/31/18 07/31/18 Range/Units 20:31 20:31 WBC 7.61 (4.8-10.8) K/uL RBC 4.53 (4.2-5.4) M/uL Hgb 13.3 (12.0-16.0) g/dL Hct 39.5 (37-47) % MCV 87.2 (80-100) fL MCH 29.4 (25-34) pg MCHC 33.7 (32-36) g/dL RDW Std Deviation 50.1 H (36.4-46.3) fL RDW Coeff of Digna 15.6 H (11.5-14.5) % Plt Count 235 (130-400) K/uL MPV 10.2 (7.4-10.4) fL Immature Gran % (Auto) 0.4 % Neut % (Auto) 71.2 % Lymph % (Auto) 14.3 % Rice % (Auto) 11.8 % Eos % (Auto) 1.8 % Baso % (Auto) 0.5 % Immature Gran # (Auto) 0.03 H (0.00-0.02) K/uL Neut # (Auto) 5.41 (1.4-6.5) K/uL Lymph # (Auto) 1.09 L (1.2-3.4) K/uL Rice # (Auto) 0.90 H (0.11-0.59) K/uL Eos # (Auto) 0.14 (0-0.5) K/uL Baso # (Auto) 0.04 (0-0.2) K/uL Sodium 141 (136-145) mmol/L Potassium 3.2 L (3.5-5.1) mmol/L Chloride 106 (98-107) mmol/L Carbon Dioxide 29 (21-32) mmol/L Anion Gap 6.0 (3-11) BUN 29 H (7-18) mg/dl Creatinine 1.67 H (0.6-1.2) mg/dl Est Cr Clr Drug Dosing 21.5 ml/min Est GFR ( Amer) 32.7 Est GFR (Non-Af Amer) 28.2 BUN/Creatinine Ratio 17.5 (10-20) Glucose 112 H (70-99) mg/dl Calcium 9.2 (8.5-10.1) mg/dl Total Bilirubin 0.5 (0.2-1) mg/dl AST 16 (15-37) U/L ALT 18 (12-78) U/L Alkaline Phosphatase 100 (45-117) U/L Total Protein 7.2 (6.4-8.2) gm/dl Albumin 3.4 (3.4-5.0) gm/dl Globulin 3.8 (2.5-4.0) gm/dl Albumin/Globulin Ratio 0.9 (0.9-2) Lipase 165 (73-393) U/L Imaging Data Radiologist's Impression: Radiology results as stated below per my review and the radiologist's interpretation: LUMBAR SPINE CT FINDINGS: The bones are osteopenic. No subluxation. Old compression fractures throughout the lumbar spine remain unchanged. There are vertebral plasties at L1, L2, and L3. No acute fractures identified within the lumbar spine. Moderate facet degenerative changes seen throughout the lumbar spine. Mild disc space narrowing at L1-L2 and L2-L3. Multiple bilateral renal hypodense lesions. These remain unchanged and favor cysts. Moderate to severe central canal narrowing most pronounced at the L3-L4 and L4-L5 levels due to the disc bulges and facet hypertrophy. This is also unchanged. IMPRESSION: 1. No acute fractures within the lumbar spine. 2. Multiple old compression fractures with prior vertebroplasty again noted. This remains unchanged. 3. Moderate to severe central canal narrowing throughout the lumbar spine which is also unchanged. Electronically signed by: Enrrique Bravo M.D. 07/31/2018 9:34 PM ECG Data Attestation: I personally reviewed and interpreted this ECG as follows: Indication: back/shoulder pain Rate (beats per minute): 72 Rhythm: sinus rhythm Findings: + PVC, + ST depression (in lateral lead) and + T-wave inversion (in high lateral lead) Comparison ECG Date: from (09/20/2016) Change: no significant change Additional Comments: Right axis, poor baseline, left bundle Blood Pressure Blood Pressure Findings: Elevated blood pressure Blood Pressure Disposition: further management by hospitalist JACOB Narrative Patient is an 83-year-old female who presents the ER for severe lower back pain. She has not left bed for the past 3 days. History of previous spinal surgeries. Had an MRI 2 weeks ago an outside facility with an L4 compression fracture which was new. On my exam patient is fairly neurologically intact but with a slightly weak left lower extremity with hip flexion secondary to pain. Labs showed no significant leukocytosis or anemia. BMP with mild hypokalemia. LFTs bilirubin and lipase is negative. CT lumbar spine was negative. Patient was given 2 dose of IV narcotics. She did have improvement of her pain and consequently required oxygen. She was unable to sit up with this discussed with the hospitalist for observation. No signs of cauda equina at this time. No fevers. Impression & Plan Back pain, Spinal stenosis Discharge Plan Visit Data Chief Complaint: Back Injury/Pain Stated Complaint: BACK PAIN, HX L4 COMPRESSION FX ED Provider: Jone Samano Discharge Problem: Back pain, Spinal stenosis Patient Disposition: Being Evaluated by Hospitalist Forms Stand Alone Forms: [facility] Prescriptions Prescriptions: No Action albuterol sulfate [Ventolin HFA] 90 mcg/actuation HFA aerosol inhaler 2 puff inhalation Q4 PRN (Reason: Shortness Of Breath Or Wheezing) RF: 0 losartan [Cozaar] 50 mg tablet 50 mg PO BID RF: 0 pravastatin [Pravachol] 40 mg tablet 40 mg PO QPM RF: 0 atenolol [Tenormin] 100 mg tablet 100 mg PO DAILY RF: 0 clonazepam [Klonopin] 0.5 mg tablet 0.5 mg PO BID RF: 0 amlodipine [Norvasc] 10 mg tablet 10 mg PO QAM RF: 0 clotrimazole-betamethasone [Lotrisone] 1-0.05 % cream 1 applic topical BID PRN (Reason: breakouts) RF: 0 oxybutynin chloride [Ditropan XL] 5 mg tablet extended release 24hr 5 mg PO QAM RF: 0 furosemide [Lasix] 20 mg tablet 20 mg PO BID RF: 0 gabapentin [Neurontin] 100 mg capsule 100 mg PO BID RF: 0 paroxetine HCl [Paxil] 40 mg tablet 40 mg PO QPM RF: 0 cholecalciferol (vitamin D3) [Vitamin D3] 1,000 unit Tablet 1,000 unit PO DAILY RF: 0 Symbicort 160-4.5 mcg/actuation HFA aerosol inhaler 2 puff inhalation QAM RF: 0 Referrals Referrals: Mani Jimenez DO [Primary Care Provider] - Discharge Problem: Back pain Qualifiers: Back pain location: low back pain Chronicity: acute Back pain laterality: bilateral Sciatica presence: without sciatica Qualified Code(s): M54.5 - Low back pain Spinal stenosis Qualifiers: Spinal region: lumbar Neurogenic claudication status: unspecified Qualified Code(s): M48.061 - Spinal stenosis, lumbar region without neurogenic claudication The scribe's documentation has been prepared under my direction and personally reviewed by me in its entirety. I confirm that the note above accurately reflects all work, treatment, procedures, and medical decision making performed by me.
[2018-08-01 01:04] LABS: Appearance Urine Slightly Cloudy (Clear); Bilirubin Urine Negative (Negative); Blood Urine Negative (Negative); Color Urine Yellow; Glucose Urine UA Negative (Negative); Ketones Urine Negative (Negative); Leukocyte Esterase Urine 1+ (Negative); Nitrite Urine Negative (Negative); Protein Urine 1+ (Negative); Urobilinogen Urine Negative (Negative); pH Urine 5.5 (4.5-7.5)
[2018-08-01 01:16] LABS: Bacteria Urine Negative (Negative); RBC Urine 0-4 /hpf (0-4)
[2018-08-01] MEDS ORDERED: ALBUTEROL HFA 8 GM INHALER INH PRN (01:50)
[2018-08-01] MEDS ORDERED: ONDANSETRON INJ 2 MG/ML 2 ML VIAL IV PRN (01:50)
[2018-08-01] MEDS ORDERED: HYDROmorphone INJ 0.5 MG/0.5 ML SYR IV PRN (01:50)
[2018-08-01] MEDS: D5W AND LACTATED RINGERS 1,000 ML IV SCH ×2 (02:28→15:50)
[2018-08-01] MEDS: POTASSIUM CHLORIDE / WTR 10 MEQ/100 ML PLCT IV SCH ×4 (02:29→05:29)
[2018-08-01] MEDS: ALBUT/IPRATROP 3MG/0.5MG NEB 3 ML VIAL NEB ONE ×2 (03:27→03:28)
--- NOTE | 2018-08-01 06:36 | Magnetic Resonance Report ---
MR lumbar spine wo con CLINICAL HISTORY: Severe back pain with left leg radiculopathy. TECHNIQUE: Sagittal and axial T1, T2 and STIR images were obtained. COMPARISON STUDY: CT scan dated 07/31/2018 OBSERVATIONS: There is evidence for prior kyphoplasty is the T11, T12, L1, and L2 and L4 levels. There are compress ion deformities at the L3 and L4 levels with marrow edema indicative of a acute/subacute timeframe. L1-2: There is minimal retropulsion of the L1 compression fracture. There is minimal spinal canal vandana rowing. There is a mild disc bulge. There is no significant foraminal narrowing. Incidental note is m miller of bilateral renal cysts L2-3: There is a circumferential disc bulge. There is mild spinal stenosis. There is no significant f oraminal narrowing L3-4: There is a circumferential disc bulge. There is moderate spinal stenosis. There is moderate lef t-sided foraminal narrowing L4-5: There is a circumferential disc bulge. There is moderate to severe spinal stenosis. There is se sen right-sided foraminal narrowing and mild to moderate left-sided foraminal narrowing L5-S1: No disc protrusions or extrusions. No evidence of spinal canal or neural foraminal compromise. The conus medullaris and cauda equina appear normal. IMPRESSION: 1. Evidence for prior kyphoplasty is 2. Multiple lower thoracic and lumbar vertebral body compression fractures. Marrow edema involving th e L3 and L4 vertebral bodies indicates that these fractures are acute/subacute infarct 3. Multilevel spondylitic changes with multilevel spinal stenosis. This is moderate the L1-2 and L2-3 levels, moderate the L3-4 level, and moderate to severe at the L4-5 level. There is also multilevel foraminal narrowing most severe on the right of the L4-5 level., Electronically signed by: Tyrone Alonzo M.D. 08/01/2018 6:35 AM
[2018-08-01 07:33] LABS: Basophils # (auto) 0.03 K/uL (0-0.2); Basophils % (auto) 0.5 %; Eosinophils # (auto) 0.19 K/uL (0-0.5); Eosinophils % (auto) 3.4 %; Hematocrit (blood only) 36.7 % (37-47); Hemoglobin 11.9 g/dL (12.0-16.0); Immature Granulocytes # (auto) 0.01 K/uL (0.00-0.02); Immature Granulocytes % (auto) 0.2 %; Lymphocytes # (auto) 1.09 K/uL (1.2-3.4); Lymphocytes % (auto) 19.3 %; Mean Corpuscular Hgb Conc 32.4 g/dL (32-36); Mean Corpuscular Volume 89.1 fL (80-100); Mean Platelet Volume 9.9 fL (7.4-10.4); Monocytes # (auto) 0.84 K/uL (0.11-0.59); Monocytes % (auto) 14.9 %; Neutrophils # (auto) 3.48 K/uL (1.4-6.5); Neutrophils % (auto) 61.7 %; Platelet Count 175 K/uL (130-400); RDW Coefficient of Variation 15.7 % (11.5-14.5); RDW Standard Deviation 50.4 fL (36.4-46.3); Red Blood Count 4.12 M/uL (4.2-5.4); White Blood Count 5.64 K/uL (4.8-10.8)
[2018-08-01 08:12] LABS: BUN Creatinine Ratio 19.3 (10-20); Calcium 8.8 mg/dl (8.5-10.1); Creatinine Clr Calc Pharmacy 26.6 ml/min; Est GFR (African American) 42.3; Est GFR (Non-African American) 36.5; Potassium 3.8 mmol/L (3.5-5.1)
[2018-08-01] MEDS ORDERED: methylPREDNISolone 4 MG TAB, 6 DAY TAPER PO SCH (08:15)
--- NOTE | 2018-08-01 08:59 | Pain Management Consultation ---
Date of Consultation August 01, 2018 Assessment & Plan (1) Acute exacerbation of chronic low back pain: Present on Admission?: Yes (2) History of kyphoplasty: Present on Admission?: Yes (3) Spinal stenosis: Neurogenic claudication status: unspecified Spinal region: lumbar Qualified Code(s): M48.061 - Spinal stenosis, lumbar region without neurogenic claudication Present on Admission?: Yes (4) Compression fracture of vertebra: 1. Treatment options were discussed at length with the patient and her daughter via telephone. The patient's daughter wished to avoid oral opiates completely due to prior history of intolerability of multiple opiate pain medications in the past. 2. Patient may continue with IV hydromorphone for as needed breakthrough pain upon this admission 3. Could potentially consider Butrans therapy for chronic pain control due to prior history of intolerability of oral opiates 4. Will initiate a Medrol Dosepak 5. Will defer to orthopedic evaluation regarding her potential candidacy for kyphoplasty 6. Epidural steroid injection could be considered in the outpatient setting with persisting pain complaints Present on Admission?: Yes History of Present Illness Reason for Consultation: Intractable low back pain Attending Physician: Jonel Wilburn MD History of Present Illness Mrs. Stearns is an 83-year-old white female who presented to the emergency department last evening complaining of acute on chronic axial low back pain. The patient denied a fall but had reported a 3-day history of increased back pain which rendered her bound to her bed. Patient has history of multiple lumbar spine surgical procedures with kyphoplasty's of multiple lumbar vertebral bodies approximately 15 years ago. The patient has had some chronic axial low back pain and has been involved in pain management most recently undergoing some type of an injection at [facility] which provided her with symptomatic relief approximately 10-12 years ago. Patient indicates that her pain is 80-90% axial in the lumbosacral region and occasionally traveling into the hip and thigh regions and nondermatomal patterns slightly right greater than left-sided. Her pain is sharp, stabbing in characteristic and aggravated with any positional change. The patient denies any bowel or bladder incontinence or saddle anesthesias. Patient has a history of significant difficulties tolerating any oral opiate therapies. Patient is rating her pain at a 7-9/10. Patient is reporting improved pain with use of IV hydromorphone which she is tolerating. Patient has no further constitutional complaints at this time. Plan of care discussed with Dr. Luisa Zavala. Pain Assessment Full Body Front + Back: 1. Diffuse lumbosacral pain Pain scale - at its best (0-10): 7 Pain scale - at its worst (0-10): 9 Allergies Allergy/AdvReac Type Severity Reaction Status Date / Time peach Allergy Mild Unknown Verified 07/31/18 20:57 strawberry Allergy Mild Unknown Verified 07/31/18 20:57 broccoli Allergy Unknown HIVES/SWELL Unverified 07/31/18 20:57 ING cauliflower Allergy Unknown HIVES Unverified 07/31/18 20:57 NSAIDS (Non-Steroidal Allergy Unknown unk Verified 07/31/18 20:57 Anti-Inflamma Penicillins Allergy Unknown Unknown Verified 07/31/18 20:57 morphine AdvReac Unknown PT DOESNT Unverified 07/31/18 20:57 TOLERATE pseudoephedrine AdvReac Unknown epistaxis Verified 07/31/18 20:57 Cantaloupe Allergy Mild Unknown Uncoded 07/31/18 20:57 Home Medications Home Medications Medication Instructions Recorded Confirmed Type albuterol sulfate [Ventolin HFA] 2 puff INHALATION Q4 PRN 07/31/18 07/31/18 History amlodipine [Norvasc] 10 mg PO QAM 07/31/18 07/31/18 History atenolol [Tenormin] 100 mg PO DAILY 07/31/18 07/31/18 History budesonide-formoterol [Symbicort] 2 puff INHALATION QAM 07/31/18 07/31/18 History cholecalciferol (vitamin D3) 1,000 unit PO DAILY 07/31/18 07/31/18 History [Vitamin D3] clonazepam [Klonopin] 0.5 mg PO BID 07/31/18 07/31/18 History clotrimazole-betamethasone 1 applic TOPICAL BID PRN 07/31/18 07/31/18 History [Lotrisone] furosemide [Lasix] 20 mg PO BID 07/31/18 07/31/18 History gabapentin [Neurontin] 100 mg PO BID 07/31/18 07/31/18 History losartan [Cozaar] 50 mg PO BID 07/31/18 07/31/18 History oxybutynin chloride [Ditropan XL] 5 mg PO QAM 07/31/18 07/31/18 History paroxetine HCl [Paxil] 40 mg PO QPM 07/31/18 07/31/18 History pravastatin [Pravachol] 40 mg PO QPM 07/31/18 07/31/18 History Pain History Pain Intensity Pain scale - at its best (0-10): 7 Pain scale - at its worst (0-10): 9 Patient History Medical History Acute exacerbation of chronic low back pain COPD (chronic obstructive pulmonary disease) (Chronic) Cataract (lens) fragments in eye following cataract surgery, bilateral (Chronic) Osteoarth NOS-ankle (Chronic) Depression (Chronic) Urinary incontinence (Chronic) Anxiety (Chronic) Depression (Chronic) COPD (chronic obstructive pulmonary disease) (Chronic) History of SC (myocardial infarction) (Chronic) Elevated serum creatinine (Chronic) Hypokalemia (Chronic) Constipation (Chronic) Lumbar back pain with radiculopathy affecting left lower extremity (Chronic) Back pain (Chronic) Spinal stenosis (Chronic) Moderate to severe-5 Arthritis (Chronic) Compression fracture of vertebra (Chronic) Acute/subacute L3 and L4 July 2018 Hypertension (Chronic) Hip fracture (Chronic) Left hip pain (Chronic) UTI (urinary tract infection) (Chronic) Weakness (Chronic) Surgical History History of kyphoplasty (Resolved) T11, T12, L1, L2 and L4 levels Post-operative state (Chronic) Family History Other No pertinent family history Social History Preferred Language: Albanian Communication Ability: Effective Procedures Tech Required: No Beliefs That Will Affect Care: None Current Living Situation: Alone Other Information That Helps Us Care for You: No Feels Safe at Home: Yes Safety Concerns: Feels Safe At This Time Smoking Status: Current every day smoker Tobacco Type: cigarettes Cigarettes Per Day: 1/2 pack Tobacco Cessation Education Requested by Patient: No Hx Alcohol Use: No Hx Substance Use: No Physical Exam Physical Exam: General: Patient lying quietly in exam room in no acute distress. Speech and thought process appropriate. Mood and affect appropriate. Cognition intact. Patient oriented to person and place. Head: Normocephalic and atraumatic. ENT: No evidence of nasal or oral mucosal lesions. Mucous membranes are moist. Eyes: Pupils equal round reactive to light. Neck: Supple without adenopathy and full range of motion. Abdomen: Soft and nondistended. No organomegaly. Bowel sounds active. Back/spine: Complete loss of lumbar lordosis. Patient is tender to palpation and percussion over the midline of the entire thoracic region. She has nonspecific and nonfocal thoracolumbar tenderness to palpation. Limited range of motion in all planes. Patient was able to logroll towards her left side for physical examination. She is nontender to the gluteal region. There is no appreciable myofascial spasm or myoneural trigger points. Lower extremities: Strength testing 3/5 with dorsiflexion and plantarflexion. Patient was able to straight leg raise to approximately 15-20 degrees without assistance and moderate increase in discomfort bilaterally. Sensation intact to sharp and dull. No evidence of skin breakdown. Neurologic: Cranial nerves grossly intact. Ambulatory function not witnessed. Results Diagnostic Review MRI: non enhanced and reports reviewed MRI Findings: [place], [place] [phone] Magnetic Resonance Report Patient: Magdaleno STEARNS Date: 08/01/18 MR#: [id number]: [address] Acct ID:[id number]: Date: 1935[facility] Zip: [place] [address] Age: 83Location: 3W Sex: F Room/Bed: [facility] Att Phy: Justice Daniels M.D.Diagnosis: ACUTE ON CHRONIC LUMBAR PAIN Elly Phy: Mani Jimenez D.O.Service Date: 08/01/18 Fam Phy: Interpreting Phy: Tyrone Alonzo MD Admit Phy: Timoteo Prieto MD Ordering Phy: Timoteo Prieto MD cc: ~ ADDENDUM Addendum: There is a voice recognition error on the initial impression. The first impression should read as follows: IMPRESSION: 1. Evidence for prior kyphoplasty at the T11, T12, L1, L2, and L4 levels. Electronically signed by: Tyrone Alonzo M.D. 08/01/2018 7:08 AM ADDENDUM END MR lumbar spine wo con CLINICAL HISTORY: Severe back pain with left leg radiculopathy. TECHNIQUE: Sagittal and axial T1, T2 and STIR images were obtained. COMPARISON STUDY: CT scan dated 07/31/2018 OBSERVATIONS: There is evidence for prior kyphoplasty is the T11, T12, L1, and L2 and L4 levels. There are compression deformities at the L3 and L4 levels with marrow edema indicative of a acute/subacute timeframe. L1-2: There is minimal retropulsion of the L1 compression fracture. There is minimal spinal canal narrowing. There is a mild disc bulge. There is no significant foraminal narrowing. Incidental note is made of bilateral renal cysts L2-3: There is a circumferential disc bulge. There is mild spinal stenosis. There is no significant foraminal narrowing L3-4: There is a circumferential disc bulge. There is moderate spinal stenosis. There is moderate left-sided foraminal narrowing L4-5: There is a circumferential disc bulge. There is moderate to severe spinal stenosis. There is severe right-sided foraminal narrowing and mild to moderate left-sided foraminal narrowing L5-S1: No disc protrusions or extrusions. No evidence of spinal canal or neural foraminal compromise. The conus medullaris and cauda equina appear normal. IMPRESSION: 1. Evidence for prior kyphoplasty is 2. Multiple lower thoracic and lumbar vertebral body compression fractures. Marrow edema involving the L3 and L4 vertebral bodies indicates that these fractures are acute/subacute infarct 3. Multilevel spondylitic changes with multilevel spinal stenosis. This is moderate the L1-2 and L2-3 levels, moderate the L3-4 level, and moderate to severe at the L4-5 level. There is also multilevel foraminal narrowing most severe on the right of the L4-5 level., Electronically signed by: Tyrone Alonzo M.D. 08/01/2018 6:35 AM Dictated: 08/01/18628 Transcribed: 08/01/18628 CT: non enhanced and reports reviewed [phone] Scan Report Patient: Magdaleno STEARNS Date: 07/31/18 MR#: [id number]: [address] Acct ID:[id number]: Date: 1935[facility] Zip: [place] [address] Age: 83Location: ED Sex: F Room/Bed: Att Phy: Diagnosis: BACK PAIN, HX L4 COMPRESSION FX Elly Phy: Mani Jimenez D.O.Service Date: 07/31/18 [facility] Phy: Interpreting Phy: Enrrique Bravo MD Admit Phy: Ordering Phy: Jone Samano, cc: ~ LUMBAR SPINE CT CT DOSE: 568.39 mGy.cm HISTORY: severe lower back pain TECHNIQUE: Multiaxial CT images of the lumbar spine were performed and reformatted in the sagittal and coronal plane without the use of contrast. A dose lowering technique was utilized adhering to the principles of ALARA. COMPARISON: Lumbar spine CT 09/06/2015. FINDINGS: The bones are osteopenic. No subluxation. Old compression fractures throughout the lumbar spine remain unchanged. There are vertebral plasties at L1, L2, and L3. No acute fractures identified within the lumbar spine. Moderate facet degenerative changes seen throughout the lumbar spine. Mild disc space narrowing at L1-L2 and L2-L3. Multiple bilateral renal hypodense lesions. These remain unchanged and favor cysts. Moderate to severe central canal narrowing most pronounced at the L3-L4 and L4-L5 levels due to the disc bulges and facet hypertrophy. This is also unchanged. IMPRESSION: 1. No acute fractures within the lumbar spine. 2. Multiple old compression fractures with prior vertebroplasty again noted. This remains unchanged. 3. Moderate to severe central canal narrowing throughout the lumbar spine which is also unchanged. Electronically signed by: Enrrique Bravo M.D. 07/31/2018 9:34 PM Dictated: 07/31/182127 Transcribed: 07/31/182127 Review of System Constitutional: Negative for fever, chills, sweats Eyes: Negative for eye pain, photophobia, drainage Ear, nose, mouth, throat: Negative for ear pain, nasal congestion, mouth lesions, change in voice Respiratory: Negative for wheezing, sputum production Cardiovascular: Negative for chest pain, palpitations, calf pain Gastrointestinal: Negative for abdominal pain, belching, bloating Genitourinary: Negative for dysuria, urinary incontinence, urinary urgency Musculoskeletal: Negative for deformities Integumentary: Negative for nail changes, skin yellowing, pruritus Neurological: Negative for abnormal speech, seizure type activity
[2018-08-01] MEDS: methylPREDNISolone 4 MG TAB PO SCH ×4 (09:39→20:50)
[2018-08-01] MEDS: AMLODIPINE BESYLATE 5 MG TAB PO SCH (11:14)
[2018-08-01] MEDS: ATENOLOL 50 MG TABLET PO SCH (11:14)
[2018-08-01] MEDS: OXYBUTYNIN CHLORIDE XL 5 MG TABCR PO SCH (11:14)
[2018-08-01] MEDS: DOCUSATE SODIUM 100 MG CAP PO SCH ×2 (11:14→20:50)
[2018-08-01] MEDS: CHOLECALCIFEROL 1,000 UNITS TAB PO SCH (11:14)
[2018-08-01] MEDS: NICOTINE 7 MG/24 HR TDSY TD SCH (11:15)
[2018-08-01] MEDS: LOSARTAN POTASSIUM 50 MG TAB PO SCH ×2 (11:15→20:50)
[2018-08-01] MEDS: clonazePAM 0.5 MG TAB PO SCH ×2 (11:19→20:50)
[2018-08-01] MEDS: BUDESONIDE/FORMOTEROL FUMARATE 160/4.5 60 PUFFS/INHALER INH SCH (12:34)
[2018-08-01] MEDS: ACETAMINOPHEN 500 MG TAB PO SCH ×2 (13:55→21:14)
--- NOTE | 2018-08-01 13:56 | Hospitalist Progress Note ---
Date of Service August 01, 2018 Assessment & Plan (1) Acute exacerbation of chronic low back pain: - CT of the lumbar spine notes no acute fractures, multiple old compression fractures, history of vertebroplasty that appears unchanged, and moderate to severe central canal narrowing which is unchanged. - MRI showed multiple lower thoracic and lumbar vertebral body compression fractures. Marrow edema involving the L3 and L4 vertebral bodies indicates that these fractures are acute/subacute infarct Multilevel spondylitic changes with multilevel spinal stenosis. This is moderate the L1-2 and L2-3 levels, moderate the L3-4 level, and moderate to severe at the L4-5 level. There is also multilevel foraminal narrowing most severe on the right of the L4-5 level. - patient reportedly does not do well with narcotics - lidocaine patches, tylenol 1g q8h, duloxetine - pain management and orthopedics consulted (2) COPD (chronic obstructive pulmonary disease): - patient is current smoker - denies need for nicotine patch - continue symbicort, albuterol (3) Depression: will change paroxetine to duloxetine per pain management rec (4) Hypertension: continue atenolol, losartan, furosemide, amlodipine (5) CAD (coronary artery disease): as above, continue pravastatin (6) DVT prophylaxis: heparin subq Subjective Ms. Hughes is feeling somewhat more comfortable than last night. She continues to have pain in her back radiating into her legs, left more that right. Pain radiates down the sides and wraps around to the knees. No changes in bowels or bladder Review of Systems Review of Systems: All systems reviewed & are unremarkable except as noted in HPI & below Physical Exam Physical Exam: General: no distress Eyes: normal inspection, PERLL Respiratory: chest non tender, faint expiratory wheezing bilaterally, no respiratory distress, no accessory muscle use Cardiac: regular rate and rhythm, no rub or gallop, no murmur, no edema, no jvd GI/: active bowel sounds, no abd pain or tenderness, soft, non distended Extremities: normal range of motion, bilateral lower extremity weakness, left more than right, non tender Neuro/Psych: alert and oriented x 3, normal mood and affect Skin: normal color, dry Results & Data Vital Signs (Past 12 Hours) Vital Signs Temp Pulse Pulse Resp BP BP Pulse Ox 08/01/18 12:38 90 08/01/18 11:25 90 08/01/18 11:21 36.9 C 65 20 146/70 H 96 08/01/18 07:53 37.3 C 70 20 140/58 L 93 08/01/18 03:29 96 08/01/18 02:07 37 C 66 20 137/54 L 93 08/01/18 02:00 Pulse Ox 08/01/18 12:38 08/01/18 11:25 08/01/18 11:21 08/01/18 07:53 08/01/18 03:29 08/01/18 02:07 08/01/18 02:00 96
[2018-08-01] MEDS: LIDOCAINE 5% 1 PATCH TD SCH (15:22)
[2018-08-01 15:28] LABS: INR 1.1 (0.9-1.1); Partial Thromboplastin Time 28.2 Seconds (21.0-31.0); Prothrombin Time 11.1 Seconds (9.0-12.0)
[2018-08-01] MEDS: PRAVASTATIN SOD 40 MG TAB PO SCH (20:50)
[2018-08-01] MEDS: HEPARIN SOD 5,000 UNIT/0.5 ML VIAL SQ SCH (20:59)
[2018-08-01] MEDS ORDERED: PARoxetine HCl 20 MG TAB PO SCH (21:00)
[2018-08-02] MEDS: D5W AND LACTATED RINGERS 1,000 ML IV SCH (04:09)
[2018-08-02] MEDS: methylPREDNISolone 4 MG TAB PO SCH ×3 (06:04→18:20)
[2018-08-02] MEDS: ACETAMINOPHEN 500 MG TAB PO SCH ×3 (06:05→21:00)
[2018-08-02] MEDS: AMLODIPINE BESYLATE 5 MG TAB PO SCH (08:04)
[2018-08-02] MEDS: LOSARTAN POTASSIUM 50 MG TAB PO SCH (08:04)
[2018-08-02] MEDS: CHOLECALCIFEROL 1,000 UNITS TAB PO SCH (08:04)
[2018-08-02] MEDS: clonazePAM 0.5 MG TAB PO SCH ×2 (08:04→20:58)
[2018-08-02] MEDS: OXYBUTYNIN CHLORIDE XL 5 MG TABCR PO SCH (08:04)
[2018-08-02] MEDS: ATENOLOL 50 MG TABLET PO SCH (08:04)
[2018-08-02] MEDS: DULOXETINE HCL 20 MG CAP PO SCH (08:05)
[2018-08-02] MEDS: BUDESONIDE/FORMOTEROL FUMARATE 160/4.5 60 PUFFS/INHALER INH SCH (08:05)
[2018-08-02] MEDS: NICOTINE 7 MG/24 HR TDSY TD SCH (08:05)
[2018-08-02] MEDS: DOCUSATE SODIUM 100 MG CAP PO SCH ×2 (08:05→20:58)
[2018-08-02] MEDS: HEPARIN SOD 5,000 UNIT/0.5 ML VIAL SQ SCH ×2 (08:06→20:57)
[2018-08-02] MEDS: LIDOCAINE 5% 1 PATCH TD SCH (08:07)
--- NOTE | 2018-08-02 08:27 | Consultation ---
Date of Consultation August 02, 2018 Assessment & Plan (1) Spinal stenosis: Malathi has 2 separate issues. One is spinal stenosis that is rather severe and undoubtedly the source of her occasional bilateral lower extremity radiculopathy. She still seems quite functional despite this. Pain management has recommended a trial of outpatient steroid injections which is reasonable. She reports she is not interested in surgical intervention. (2) Compression fracture of vertebra: Patient also has acute L3 and L4 compression deformities. These are atraumatic. I have reviewed options with her in regards to this. This includes conservative treatment with pain control measures, bracing, kyphoplasty. She was quite tearful and emotional throughout her exam. She is adamant she does not want surgical intervention. She is currently declining bracing. I have also spoken to her daughter this morning with the patient in the room. My findings as well as options were reviewed with Malathi's daughter. She will relate this information to her sister. I will meet with him tomorrow morning and again review all options. Supervising Physician Co-Signing Physician Notes Dr. Yoni Dow History of Present Illness Reason for Consultation: Lumbar compression fractures Lumbar spinal stenosis Attending Physician: Jonel Wilburn MD History of Present Illness Celine is an 83-year-old female that is well-known to our practice. We have performed multiple thoracic and lumbar kyphoplasty several years ago. She presented to the emergency room few days ago because of worsening back pain. Denies specific accident, trauma, fall. She reports she is for the past 4 years and now lives at home independently with her daughters nearby. She reports the majority of her pain is located along her lumbar spine. She occasionally has pain radiating down her legs but states this is not daily. She reports she endplates independently. She has trialed an elastic corset brace without relief of her back pain. Denies bowel bladder changes. She states she has not been taking any pain medication at home as she is sensitive to this. Allergies Allergy/AdvReac Type Severity Reaction Status Date / Time peach Allergy Mild Unknown Verified 07/31/18 20:57 strawberry Allergy Mild Unknown Verified 07/31/18 20:57 broccoli Allergy Unknown HIVES/SWELL Verified 08/01/18 15:18 ING cauliflower Allergy Unknown HIVES Verified 08/01/18 15:18 melon Allergy Unknown Unknown Verified 08/01/18 15:16 NSAIDS (Non-Steroidal Allergy Unknown unk Verified 07/31/18 20:57 Anti-Inflamma Penicillins Allergy Unknown Unknown Verified 07/31/18 20:57 morphine AdvReac Unknown PT DOESNT Unverified 07/31/18 20:57 TOLERATE pseudoephedrine AdvReac Unknown epistaxis Verified 07/31/18 20:57 Home Medications Home Medications Medication Instructions Recorded Confirmed Type albuterol sulfate [Ventolin HFA] 2 puff INHALATION Q4 PRN 07/31/18 07/31/18 History amlodipine [Norvasc] 10 mg PO QAM 07/31/18 07/31/18 History atenolol [Tenormin] 100 mg PO DAILY 07/31/18 07/31/18 History budesonide-formoterol [Symbicort] 2 puff INHALATION QAM 07/31/18 07/31/18 History cholecalciferol (vitamin D3) 1,000 unit PO DAILY 07/31/18 07/31/18 History [Vitamin D3] clonazepam [Klonopin] 0.5 mg PO BID 07/31/18 07/31/18 History clotrimazole-betamethasone 1 applic TOPICAL BID PRN 07/31/18 07/31/18 History [Lotrisone] furosemide [Lasix] 20 mg PO BID 07/31/18 07/31/18 History gabapentin [Neurontin] 100 mg PO BID 07/31/18 07/31/18 History losartan [Cozaar] 50 mg PO BID 07/31/18 07/31/18 History oxybutynin chloride [Ditropan XL] 5 mg PO QAM 07/31/18 07/31/18 History paroxetine HCl [Paxil] 40 mg PO QPM 07/31/18 07/31/18 History pravastatin [Pravachol] 40 mg PO QPM 07/31/18 07/31/18 History Patient History Medical History Acute exacerbation of chronic low back pain COPD (chronic obstructive pulmonary disease) (Chronic) Cataract (lens) fragments in eye following cataract surgery, bilateral (Chronic) Osteoarth NOS-ankle (Chronic) Depression (Chronic) Urinary incontinence (Chronic) Anxiety (Chronic) Depression (Chronic) COPD (chronic obstructive pulmonary disease) (Chronic) History of MT (myocardial infarction) (Chronic) Elevated serum creatinine (Chronic) Hypokalemia (Chronic) Constipation (Chronic) Lumbar back pain with radiculopathy affecting left lower extremity (Chronic) Back pain (Chronic) Spinal stenosis (Chronic) Moderate to severe-5 Arthritis (Chronic) Compression fracture of vertebra (Chronic) Acute/subacute L3 and L4 July 2018 Hypertension (Chronic) Hip fracture (Chronic) Left hip pain (Chronic) UTI (urinary tract infection) (Chronic) Weakness (Chronic) Surgical History History of kyphoplasty (Resolved) T11, T12, L1, L2 and L4 levels Post-operative state (Chronic) Family History Other No pertinent family history Social History Preferred Language: Vincentian Communication Ability: Effective Power Regulator Required: No Beliefs That Will Affect Care: None Current Living Situation: Alone Other Information That Helps Us Care for You: No Feels Safe at Home: Yes Safety Concerns: Feels Safe At This Time Smoking Status: Current every day smoker Tobacco Type: cigarettes Cigarettes Per Day: 1/2 pack Tobacco Cessation Education Requested by Patient: No Hx Alcohol Use: No Hx Substance Use: No Review of Systems Review of Systems: All systems reviewed & are unremarkable except as noted in HPI & below Physical Exam Physical Exam: She is lying in bed. She is quite tearful. Seems a little confused at times. She is cooperative with exam. She is able to rollover in bed for me. There is no ecchymosis throughout the thoracolumbar spine. She is nontender to palpation percussion of the thoracolumbar spine. Lower extremities she has 5/5 strength of bilateral EHL, dorsiflexion, plant arflexion, quadriceps, hamstrings. Negative tension signs. Negative logrolling. Constitutional: WD/WN, vitals as above Eyes: normal visual schmitt by confrontation ENMT: external ear and nose normal, oropharynx normal Ears: + hearing impairment Neck: normal visual inspection Respiratory: normal respiratory effort Cardiovascular: Rate/Rhythm: regular rate Gastrointestinal (Abdomen): Inspection/Auscultation: abdomen normal to inspection Musculoskeletal: no cyanosis or clubbing, extremities motor strength 5/5 Skin: no rashes, warm and dry Neurologic: moves all extremities Psychiatric: Orientation: alert Affect: + depressed affect Results & Data Vital Signs (Past 12 Hours) Vital Signs Temp Pulse Resp BP BP Pulse Ox 08/02/18 07:30 36.5 C 66 20 154/68 H 98 08/02/18 06:08 92 08/02/18 06:07 86 L 08/01/18 23:28 94 08/01/18 23:06 36.6 C 15 151/57 H 90 Diagnostic Findings [phone] Magnetic Resonance Report Patient: VERN STEARNSdmdeanna Date: 08/01/18 MR#: [id number]: [address] Acct ID:[id number]: Date: 1935[facility] Zip: [place] [address] Age: 83Location: 3W Sex: F Room/Bed: [facility] Att Phy: Justice Daniels M.D.Diagnosis: ACUTE ON CHRONIC LUMBAR PAIN Elly Phy: Mani Jimenez D.O.Service Date: 08/01/18 Fam Phy: Interpreting Phy: Tyrone Alonzo MD Admit Phy: Timoteo Prieto MD Ordering Phy: Timoteo Prieto MD cc: ~ ADDENDUM Addendum: There is a voice recognition error on the initial impression. The first impression should read as follows: IMPRESSION: 1. Evidence for prior kyphoplasty at the T11, T12, L1, L2, and L4 levels. Electronically signed by: Tyrone Alonzo M.D. 08/01/2018 7:08 AM ADDENDUM END MR lumbar spine wo con CLINICAL HISTORY: Severe back pain with left leg radiculopathy. TECHNIQUE: Sagittal and axial T1, T2 and STIR images were obtained. COMPARISON STUDY: CT scan dated 07/31/2018 OBSERVATIONS: There is evidence for prior kyphoplasty is the T11, T12, L1, and L2 and L4 levels. There are compression deformities at the L3 and L4 levels with marrow edema indicative of a acute/subacute timeframe. L1-2: There is minimal retropulsion of the L1 compression fracture. There is minimal spinal canal narrowing. There is a mild disc bulge. There is no significant foraminal narrowing. Incidental note is made of bilateral renal cysts L2-3: There is a circumferential disc bulge. There is mild spinal stenosis. There is no significant foraminal narrowing L3-4: There is a circumferential disc bulge. There is moderate spinal stenosis. There is moderate left-sided foraminal narrowing L4-5: There is a circumferential disc bulge. There is moderate to severe spinal stenosis. There is severe right-sided foraminal narrowing and mild to moderate left-sided foraminal narrowing L5-S1: No disc protrusions or extrusions. No evidence of spinal canal or neural foraminal compromise. The conus medullaris and cauda equina appear normal. IMPRESSION: 1. Evidence for prior kyphoplasty is 2. Multiple lower thoracic and lumbar vertebral body compression fractures. Marrow edema involving the L3 and L4 vertebral bodies indicates that these fractures are acute/subacute infarct 3. Multilevel spondylitic changes with multilevel spinal stenosis. This is moderate the L1-2 and L2-3 levels, moderate the L3-4 level, and moderate to severe at the L4-5 level. There is also multilevel foraminal narrowing most severe on the right of the L4-5 level., Electronically signed by: Tyrone Alonzo M.D. 08/01/2018 6:35 AM Dictated: 08/01/18 0629 (1) Spinal stenosis Neurogenic claudication status: unspecified Spinal region: lumbar Qualified Code(s): M48.061 - Spinal stenosis, lumbar region without neurogenic claudication
[2018-08-02 08:37] LABS: Hematocrit (blood only) 35.1 % (37-47); Hemoglobin 11.7 g/dL (12.0-16.0); Mean Corpuscular Hgb Conc 33.3 g/dL (32-36); Mean Corpuscular Volume 87.3 fL (80-100); Mean Platelet Volume 9.4 fL (7.4-10.4); Platelet Count 181 K/uL (130-400); RDW Coefficient of Variation 15.5 % (11.5-14.5); RDW Standard Deviation 50.3 fL (36.4-46.3); Red Blood Count 4.02 M/uL (4.2-5.4); White Blood Count 5.74 K/uL (4.8-10.8)
[2018-08-02 09:07] LABS: BUN Creatinine Ratio 17.7 (10-20); Creatinine Clr Calc Pharmacy 25.1 ml/min; Est GFR (African American) 39.4; Potassium 3.8 mmol/L (3.5-5.1)
--- NOTE | 2018-08-02 12:33 | Hospitalist Progress Note ---
Date of Service August 02, 2018 Assessment & Plan (1) Acute exacerbation of chronic low back pain: - CT of the lumbar spine notes no acute fractures, multiple old compression fractures, history of vertebroplasty that appears unchanged, and moderate to severe central canal narrowing which is unchanged. - MRI showed multiple lower thoracic and lumbar vertebral body compression fractures. Marrow edema involving the L3 and L4 vertebral bodies indicates that these fractures are acute/subacute infarct Multilevel spondylitic changes with multilevel spinal stenosis. This is moderate the L1-2 and L2-3 levels, moderate the L3-4 level, and moderate to severe at the L4-5 level. There is also multilevel foraminal narrowing most severe on the right of the L4-5 level. - patient reportedly does not do well with narcotics - lidocaine patches, tylenol 1g q8h, duloxetine, patient does not want to use a brace. She is also very wary about doing any inpatient rehab due to some past bad experiences. - pain management and orthopedics consulted - patient is still considering surgery if ortho decided surgery is an option. She is able to climb stairs without getting sob. She has no history of heart failure. RCRI is 6%. She is a current smoker with COPD (2) COPD (chronic obstructive pulmonary disease): - patient is current smoker - denies need for nicotine patch - continue symbicort, albuterol (3) Depression: will change paroxetine to duloxetine per pain management rec (4) Hypertension: continue atenolol, losartan, furosemide, amlodipine (5) CAD (coronary artery disease): as above, continue pravastatin (6) DVT prophylaxis: heparin subq Subjective Ms. Hughes's pain is under better control today. She does have radiculopathy at times but no changes in bowels and bladder. Her sister and daughter are at bedside and I spent time answering their questions. Review of Systems Review of Systems: All systems reviewed & are unremarkable except as noted in HPI & below Physical Exam Physical Exam: General: no distress Eyes: normal inspection, PERLL Respiratory: chest non tender, clear to auscultation, normal breath sounds, no respiratory distress, no accessory muscle use Cardiac: regular rate and rhythm, no rub or gallop, no murmur, no edema, no jvd GI/: active bowel sounds, no abd pain or tenderness, soft, non distended Extremities: normal range of motion, weakness lower extremities Neuro/Psych: alert and oriented x 3, normal mood and affect Skin: normal color, dry Results & Data Vital Signs (Past 12 Hours) Vital Signs Temp Pulse Resp BP BP Pulse Ox 08/02/18 11:35 36.6 C 60 16 132/68 97 08/02/18 07:30 36.5 C 66 20 154/68 H 98 08/02/18 06:08 92 08/02/18 06:07 86 L
[2018-08-02] MEDS: LACTATED RINGER'S 1,000 ML IV SCH (13:03)
[2018-08-02] MEDS: PRAVASTATIN SOD 40 MG TAB PO SCH (20:59)
[2018-08-02] MEDS ORDERED: methylPREDNISolone 4 MG TAB PO SCH (21:00)
[2018-08-03] MEDS: LACTATED RINGER'S 1,000 ML IV SCH (00:46)
[2018-08-03] MEDS: methylPREDNISolone 4 MG TAB PO SCH ×4 (06:04→20:39)
[2018-08-03] MEDS: ACETAMINOPHEN 500 MG TAB PO SCH ×3 (06:04→22:19)
[2018-08-03 06:54] LABS: Hemoglobin 12.3 g/dL (12.0-16.0); Mean Corpuscular Hgb Conc 34.2 g/dL (32-36); Mean Corpuscular Volume 88.2 fL (80-100); Mean Platelet Volume 9.5 fL (7.4-10.4); Platelet Count 185 K/uL (130-400); RDW Coefficient of Variation 15.6 % (11.5-14.5); RDW Standard Deviation 50.5 fL (36.4-46.3); Red Blood Count 4.08 M/uL (4.2-5.4); White Blood Count 6.64 K/uL (4.8-10.8)
[2018-08-03 07:16] LABS: BUN Creatinine Ratio 18.5 (10-20); Calcium 8.7 mg/dl (8.5-10.1); Creatinine Clr Calc Pharmacy 32.3 ml/min; Est GFR (African American) 53.6; Est GFR (Non-African American) 46.2; Potassium 3.8 mmol/L (3.5-5.1)
--- NOTE | 2018-08-03 07:21 | Orthopedic Progress Note ---
Date of Service August 03, 2018 Assessment & Plan (1) Compression fracture of vertebra: I had a discussion in great detail with Malathi and her daughter in the room. Malathi does not want to pursue surgical intervention. This is reasonable. Her daughter reports she will most likely be noncompliant with a brace. She is quite anxious to return home. From my standpoint she is able to return home when medicine deems this reasonable. Are happy to follow her up in the office in about 2 weeks and assess her progress.[phone] Supervising Physician Co-Signing Physician Notes Dr. Yoni Dow Subjective I spoke with Malathi and her daughter who is in the room this back pain. She remains quite adamant that she wants to return home upon discharge. I again have reviewed options including conservative treatment with pain control versus bracing versus kyphoplasty. She understands that with the risks of undergoing a kyphoplasty which include adjacent level fractures. Review of Systems Review of Systems: All systems reviewed & are unremarkable except as noted in HPI & below Physical Exam Physical Exam: Unchanged. Constitutional: WD/WN, vitals as above Eyes: normal visual schmitt by confrontation ENMT: external ear and nose normal, oropharynx normal Ears: + hearing impairment Neck: normal visual inspection Respiratory: normal respiratory effort Cardiovascular: Rate/Rhythm: regular rate Gastrointestinal (Abdomen): Inspection/Auscultation: abdomen normal to inspection Musculoskeletal: no cyanosis or clubbing, extremities motor strength 5/5 Skin: no rashes, warm and dry Neurologic: moves all extremities Psychiatric: Orientation: alert Affect: + depressed affect Results & Data Vital Signs (Past 12 Hours) Vital Signs Temp Pulse Resp BP Pulse Ox 08/02/18 23:04 36.6 C 61 18 158/60 H 93
[2018-08-03] MEDS: DOCUSATE SODIUM 100 MG CAP PO SCH ×2 (08:02→20:38)
[2018-08-03] MEDS: NICOTINE 7 MG/24 HR TDSY TD SCH (08:02)
[2018-08-03] MEDS: ATENOLOL 50 MG TABLET PO SCH (08:03)
[2018-08-03] MEDS: DULOXETINE HCL 20 MG CAP PO SCH (08:03)
[2018-08-03] MEDS: BUDESONIDE/FORMOTEROL FUMARATE 160/4.5 60 PUFFS/INHALER INH SCH (08:03)
[2018-08-03] MEDS: HEPARIN SOD 5,000 UNIT/0.5 ML VIAL SQ SCH ×2 (08:03→20:40)
[2018-08-03] MEDS: OXYBUTYNIN CHLORIDE XL 5 MG TABCR PO SCH (08:03)
[2018-08-03] MEDS: LIDOCAINE 5% 1 PATCH TD SCH (08:03)
[2018-08-03] MEDS: CHOLECALCIFEROL 1,000 UNITS TAB PO SCH (08:03)
[2018-08-03] MEDS: AMLODIPINE BESYLATE 5 MG TAB PO SCH (08:03)
[2018-08-03] MEDS: clonazePAM 0.5 MG TAB PO SCH ×2 (08:06→20:38)
[2018-08-03] MEDS: LOSARTAN POTASSIUM 50 MG TAB PO SCH ×2 (09:56→20:38)
--- NOTE | 2018-08-03 11:43 | Hospitalist Progress Note ---
Date of Service August 03, 2018 Assessment & Plan (1) Acute exacerbation of chronic low back pain: - CT of the lumbar spine notes no acute fractures, multiple old compression fractures, history of vertebroplasty that appears unchanged, and moderate to severe central canal narrowing which is unchanged. - MRI showed multiple lower thoracic and lumbar vertebral body compression fractures. Marrow edema involving the L3 and L4 vertebral bodies indicates that these fractures are acute/subacute infarct Multilevel spondylitic changes with multilevel spinal stenosis. This is moderate the L1-2 and L2-3 levels, moderate the L3-4 level, and moderate to severe at the L4-5 level. There is also multilevel foraminal narrowing most severe on the right of the L4-5 level. - patient reportedly does not do well with narcotics - lidocaine patches, tylenol 1g q8h, duloxetine, patient does not want to use a brace. She is also very wary about doing any inpatient rehab due to some past bad experiences. - pain management and orthopedics consulted - no surgery, manage medically - PT/OT evals today (2) COPD (chronic obstructive pulmonary disease): - patient is current smoker - denies need for nicotine patch - continue symbicort, albuterol (3) Depression: changed paroxetine to duloxetine per pain management rec (4) Hypertension: continue atenolol, losartan, furosemide, amlodipine (5) CAD (coronary artery disease): as above, continue pravastatin (6) DVT prophylaxis: heparin subq Dispo: awaiting PT/OT evals. Patient is wary of inpatient rehab so will have to discuss discharge options following PT/OT recs Subjective Pain is improving. Patient and surgery discussed and will avoid surgery for now. No changes in bowels or bladder Review of Systems Review of Systems: All systems reviewed & are unremarkable except as noted in HPI & below Physical Exam Physical Exam: General: no distress Eyes: normal inspection, PERLL Respiratory: chest non tender, clear to auscultation, normal breath sounds, no respiratory distress, no accessory muscle use Cardiac: regular rate and rhythm, no rub or gallop, no murmur, no edema, no jvd GI/: active bowel sounds, no abd pain or tenderness, soft, non distended Extremities: normal range of motion, normal strength, non tender Neuro/Psych: alert and oriented x 3, normal mood and affect Skin: normal color, dry Results & Data Vital Signs (Past 12 Hours) Vital Signs Temp Pulse Resp BP Pulse Ox 08/03/18 08:09 91 08/03/18 07:32 36.6 C 55 L 20 166/66 H 92
[2018-08-03] MEDS: PRAVASTATIN SOD 40 MG TAB PO SCH (20:39)
[2018-08-04] MEDS: ACETAMINOPHEN 500 MG TAB PO SCH ×2 (05:30→12:44)
[2018-08-04] MEDS: methylPREDNISolone 4 MG TAB PO SCH ×2 (05:30→12:44)
[2018-08-04 07:28] LABS: Hematocrit (blood only) 39.9 % (37-47); Hemoglobin 13.6 g/dL (12.0-16.0); Mean Corpuscular Hgb Conc 34.1 g/dL (32-36); Mean Corpuscular Volume 87.1 fL (80-100); Mean Platelet Volume 9.4 fL (7.4-10.4); Platelet Count 207 K/uL (130-400); RDW Coefficient of Variation 15.8 % (11.5-14.5); RDW Standard Deviation 50.3 fL (36.4-46.3); Red Blood Count 4.58 M/uL (4.2-5.4); White Blood Count 8.64 K/uL (4.8-10.8)
[2018-08-04 08:08] LABS: BUN Creatinine Ratio 20.9 (10-20); Calcium 9.2 mg/dl (8.5-10.1); Creatinine Clr Calc Pharmacy 29.4 ml/min; Est GFR (African American) 47.8; Est GFR (Non-African American) 41.2; Potassium 3.7 mmol/L (3.5-5.1)
[2018-08-04] MEDS: BUDESONIDE/FORMOTEROL FUMARATE 160/4.5 60 PUFFS/INHALER INH SCH (08:31)
[2018-08-04] MEDS: OXYBUTYNIN CHLORIDE XL 5 MG TABCR PO SCH (08:32)
[2018-08-04] MEDS: LOSARTAN POTASSIUM 50 MG TAB PO SCH (08:32)
[2018-08-04] MEDS: DOCUSATE SODIUM 100 MG CAP PO SCH (08:32)
[2018-08-04] MEDS: LIDOCAINE 5% 1 PATCH TD SCH (08:33)
[2018-08-04] MEDS: CHOLECALCIFEROL 1,000 UNITS TAB PO SCH (08:33)
[2018-08-04] MEDS: DULOXETINE HCL 20 MG CAP PO SCH (08:33)
[2018-08-04] MEDS: ATENOLOL 50 MG TABLET PO SCH (08:33)
[2018-08-04] MEDS: NICOTINE 7 MG/24 HR TDSY TD SCH (08:33)
[2018-08-04] MEDS: HEPARIN SOD 5,000 UNIT/0.5 ML VIAL SQ SCH (08:34)
[2018-08-04] MEDS: clonazePAM 0.5 MG TAB PO SCH (08:39)
--- NOTE | 2018-08-04 14:43 | XRay Report ---
XR chest 2V routine CLINICAL HISTORY: In setting of hypoxia dyspnea COMPARISON STUDY: 09/24/2016 FINDINGS: Mild stable cardiomegaly. Lungs are clear. Diaphragms are smooth. Several pre-existing vert ebral plasties of the low thoracic and upper lumbar spine. IMPRESSION: Chronic change. No acute process. The above report was generated using voice recognition software. It may contain grammatical, syntax or spelling errors. Electronically signed by: Nitin Fong M.D. 08/04/2018 2:41 PM
[2018-08-04] MEDS ORDERED: FUROSEMIDE 20 MG TAB PO SCH (16:15)
--- NOTE | 2018-08-04 16:56 | Discharge Summary ---
Date of Service August 04, 2018 Admission HPI Per Admitting Provider 83-year-old female presents with her daughter to the emergency department complaining of acute on chronic low back pain. Both patient and daughter mutually give the history. By report, patient has had multiple back surgeries by Dr. Dow about 15 years ago. She has lived with some level of chronic pain since that time but has noted over the past couple months that it has been worsening. An MRI at [facility] a couple months ago apparently showed a new L4 compression fracture but it is unclear if this was followed up medically. Over the past three days the patient has noticed more severe pain that comes in waves with any movement, improved with rest. Has noted some radiating symptoms and mild weakness in her left leg as well. Denies acute right leg symptoms, changes in her bowel or bladder habits, or numbness around her bottom. She has had some constipation and decreased p.o. intake over the past three days as well. No known falls or trauma in this recent time. Otherwise denies any chest pain, shortness of breath, abdominal pain, or other acute concerns. She does note she has been smoking for multiple decades now and has ongoing baseline wheezing. She does not use oxygen at home for her COPD. Admission Exam Per Admitting Provider GENERAL: Awake, alert, rather well-appearing, appears in mild level of baseline pain and at times has sharp excruciating pains. Overall does not appear in immediate distress. HENT: Normocephalic, atraumatic. Oropharynx dry. EYES: Normal conjunctiva. Sclera non-icteric. NECK: Inspection normal. Supple and full ROM. No nuchal rigidity. CARDIAC: +S1S2 RRR, no murmurs. RESPIRATORY: Mild expiratory wheezing throughout. Normal respiratory effort. GI: +BS, soft, non-distended. No tenderness to palpation. No rebound or guarding. No appreciable masses. EXTREMITIES: No pedal edema or calf tenderness. Mild decreased strength throughout the left leg but can still lift and do plantar flexion, though very slowly. Distal sensation equal and intact in bilateral extremities. Principal Diagnosis Acute on Chronic Lumbar Pain Discharge Exam General: Resting comfortably in no apparent distress HEENT: NC/AT; PERRLA with EOMI; [place] conjunctiva, MMM. No erythema of posterior pharynx Neck: Supple and nontender Cardiac: RRR Lungs: CTA bilaterally Abdomen: Bowel normoactive X 4; Nontender to palpation Extremities: Warm. No edema present Neuro: No focal weakness Skin: No rash Discharge Data Allergies Allergy/AdvReac Type Severity Reaction Status Date / Time peach Allergy Mild Unknown Verified 07/31/18 20:57 strawberry Allergy Mild Unknown Verified 07/31/18 20:57 broccoli Allergy Unknown HIVES/SWELL Verified 08/01/18 15:18 ING cauliflower Allergy Unknown HIVES Verified 08/01/18 15:18 melon Allergy Unknown Unknown Verified 08/01/18 15:16 NSAIDS (Non-Steroidal Allergy Unknown unk Verified 07/31/18 20:57 Anti-Inflamma Penicillins Allergy Unknown Unknown Verified 07/31/18 20:57 morphine AdvReac Unknown PT DOESNT Unverified 07/31/18 20:57 TOLERATE pseudoephedrine AdvReac Unknown epistaxis Verified 07/31/18 20:57 Consultations 07/31/18 22:38 ED Decision to Admit Stat 08/01/18 01:50 Consult Orthopedic Surgery Routine Consult Pain Management Routine Ordered Studies 07/31/18 20:22 CT lumbar spine wo con Stat 08/01/18 00:40 MRI lumbar spine - IMPRESSION: 1. Evidence for prior kyphoplasty at T11, T12, L1, L2, and L4. 2. Multiple lower thoracic and lumbar vertebral body compression fractures. Marrow edema involving the L3 and L4 vertebral bodies indicates that these fractures are acute/subacute infarct 3. Multilevel spondylitic changes with multilevel spinal stenosis. This is moderate the L1-2 and L2-3 levels, moderate the L3-4 level, and moderate to severe at the L4-5 level. There is also multilevel foraminal narrowing most severe on the right of the L4-5 level., 08/04/18 CXR Hospital Course (1) Acute exacerbation of chronic low back pain: CT of the lumbar spine notes no acute fractures, multiple old compression fractures, history of vertebroplasty that appears unchanged, and moderate to severe central canal narrowing which is unchanged. MRI showed multiple lower thoracic and lumbar vertebral body compression fractures. Marrow edema involving the L3 and L4 vertebral bodies indicates that these fractures are acute/subacute infarct. Multilevel spondylitic changes with multilevel spinal stenosis. This is moderate the L1-2 and L2-3 levels, moderate the L3-4 level, and moderate to severe at the L4-5 level. There is also multilevel foraminal narrowing most severe on the right of the L4-5 level. Pt. does not do well with narcotics. Pain control: Lidocaine patches, Tylenol 1g q8h. Duloxetine was also added, home Paxil discontinued. Orthopedics consulted, pt. does not want surgical intervention and does not want to wear a brace. PT/OT did not recommend ongoing needs; she refused home health services. Will be discharged on 08/04/18; scripts provided for lidocaine patches, duloxetine. (2) Osteoporotic compression fracture of spine: L3, L4 - as seen on MRI Lumbar spine. Acute/subacute. (3) COPD (chronic obstructive pulmonary disease): Pt. is a current every day smoker. Continued home inhalers. Encouraged tobacco cessation. (4) Depression: Converted Paxil to Duloxetine following pain management consult. (5) Hypertension: Continued atenolol, losartan, amlodipine. Home Lasix 20 mg daily was held, will be resumed at discharge. (6) CAD (coronary artery disease): Continued statin. (7) Chronic respiratory failure with hypoxia: Pt. required 2L via NC during this admission, was on room air at home. CXR negative for acute changes. Hypoxia likely related to COPD. Required 2L at rest, 4L with exertion during 2-step test. Home oxygen was arranged but pt. will likely not comply with recommendations. Her family is encouraging her to wear oxygen overnight and during daytime naps. (8) Chronic kidney disease, stage 3a: Cr on day of discharge - 1.2. (9) Tobacco use disorder: (10) DVT prophylaxis: Heparin subQ. Stable for discharge to home on 08/04/18. Total Time Total Time Spent Total Time Spent (In Minutes): >30 minutes Discharge Plan Discharge Items Patient Disposition: Home - Home Health Services Reason For Visit: ACUTE ON CHRONIC LUMBAR PAIN Discharge Diagnosis: Acute on Chronic Lumbar Pain Condition: Fair Discharge Goals: Decrease discomfort, Improve disease control, Improve function, Increase independence, Improve nutritional status and Prevent disease Activity: As commented below Exercise/Sports: Gradually increase as tolerated Non-emergency contact: Primary Care Provider Call non-emergency contact if: you have any medication questions, your symptoms worsen, your pain is not controlled, your pain is worsening, your pain is unusual for you, your pain is concerning for you and you have a fever Follow-up/Referrals: Huckestein,Mani E, DO [Primary Care Provider] - Diet: Heart Healthy Addtl Provider Instructions: 1. Acute on Chronic Low Back Pain * Please continue Tylenol 1 gm every 8 hours scheduled. * Continue to apply Lidocaine patch -- prescription was provided at discharge. Over the counter Lidocaine patches can also be purchased. * Please take Duloxetine 20 mg daily as prescribed. * Please take steroid taper as follows: - Methylprednisolone 4 mg this evening. - Methylprednisolone 4 mg in the morning and evening on 08/05/18. - Methylprednisolone 4 mg in the morning on 08/06 then discontinue. - Prescription for medication was sent to your pharmacy. * Home health with physical therapy/occupational therapy has been arranged. 2 Acute Hypoxia in setting of COPD * Continue to use oxygen (2L at rest, 4L with exertion) at all times. * Continue home inhalers as prescribed. 3. Depression * Home Paxil has been converted to Duloxetine. * Prescription for Duloxetine was sent to your pharmacy. 4. Please arrange an appointment with your primary care provider in 1-2 weeks. Prescriptions: New acetaminophen [Tylenol Extra Strength] 500 mg Tablet 1,000 mg PO Q8 1 Days Qty: 6 RF: 0 lidocaine 5 % Adhesive Patch,Medicated 1 patch transdermal QAM 10 Days Qty: 10 RF: 0 docusate sodium 100 mg Capsule 100 mg PO BID 1 Days Qty: 2 RF: 0 duloxetine 20 mg Capsule,Delayed Release(Dr/Ec) 20 mg PO QAM 30 Days Qty: 30 RF: 0 methylprednisolone 4 mg tablet 4 mg PO BID Qty: 4 RF: 0 Continued albuterol sulfate [Ventolin HFA] 90 mcg/actuation HFA aerosol inhaler 2 puff inhalation Q4 PRN (Reason: Shortness Of Breath Or Wheezing) RF: 0 losartan [Cozaar] 50 mg tablet 50 mg PO BID RF: 0 pravastatin [Pravachol] 40 mg tablet 40 mg PO QPM RF: 0 atenolol [Tenormin] 100 mg tablet 100 mg PO DAILY RF: 0 amlodipine [Norvasc] 10 mg tablet 10 mg PO QAM RF: 0 clotrimazole-betamethasone [Lotrisone] 1-0.05 % cream 1 applic topical BID PRN (Reason: breakouts) RF: 0 oxybutynin chloride [Ditropan XL] 5 mg tablet extended release 24hr 5 mg PO QAM RF: 0 gabapentin [Neurontin] 100 mg capsule 100 mg PO BID RF: 0 cholecalciferol (vitamin D3) [Vitamin D3] 1,000 unit Tablet 1,000 unit PO DAILY RF: 0 Symbicort 160-4.5 mcg/actuation HFA aerosol inhaler 2 puff inhalation QAM RF: 0 Changed clonazepam [Klonopin] 0.5 mg tablet 0.5 mg PO BID PRN (Reason: Anxiety) Qty: 0 RF: 0 furosemide [Lasix] 20 mg tablet 20 mg PO DAILY Qty: 0 RF: 0 Discontinued paroxetine HCl [Paxil] 40 mg tablet 40 mg PO QPM RF: 0 Stand-Alone Forms: [facility] Discharge Orders: Discharge Order (Routine); Ordered 08/04/18 Ordered By: Karina Chakraborty Admission Data Admit Date/Time: 08/01/18 00:30 Attending Provider: Michael Wagoner Admit Provider: Timoteo Prieto Primary Care Provider: Mani Jimenez Other Providers: Justice Daniels ; Violet Brown ; Luisa Zavlaa Service: Medical Other Interventions: Discharge Summary Assessment (RN) Last Done: 08/04/18 17:01 Pending Studies at Discharge: No DC Date/Time DO NOT enter until pt leaves facility: 08/04/18 18:05 Supervising Physician Co-Signing Physician Notes Attending Discharge Note & Attestation - Pt seen/examined, chart reviewed, discharge care plan d/w SHERRELL Chakraborty. I agree with the nieves components of her discharge summary. 83yo female with long-standing tobacco abuse, COPD, and chronic low back pain with multiple compression fractures requiring kyphoplasty procedures who presented with acute low back pain. Found to have new compression fractures at L3 and L4. Seen by orthopedics and pain management. Surgical intervention deferred. Pain recommended substitution of cymbalta for her paxil. PT/OT evals completed. Back brace refused by patient. Required O2 her entire stay -- likely due to COPD. 2-step O2 test demonstrated need for NC O2 at home. Patient reported she would NOT quit tobacco use. She also reported long-standing depression but would not commit to outpatient treatment for this. Discharge exam: gen - tearful, anxious, but NAD/no pain mouth - MMM heart - RRR, s1 s2 lungs - wheezes b/l abd - soft NT ND BS+ ext - trace edema skin - stasis changes b/l Patient should have outpatient DEXA and vitamin D level drawn. Michael Wagoner MD
[2018-08-05] MEDS ORDERED: methylPREDNISolone 4 MG TAB PO SCH (07:00)
[2018-08-06] MEDS ORDERED: methylPREDNISolone 4 MG TAB PO SCH (07:00)
== END 2018-08-04 18:05 | disposition home health service (06) | DRG 543 ==
LOC: ED 19:59 → SUATTDRO 08-01 00:30 → 3W 08-01 00:30